=== PATIENT | female | born 1935 | race Caucasian/White ===

== ENCOUNTER 2020-06-03 14:49 | Outpatient (RCR) | payer MEDICARE, SELFPAY | END 2020-06-03 23:59 | LOC: IMMUN 14:49 | PROVIDERS: PCP Family Medicine; Visit Provider Family Medicine | DX: Z23 Encounter for immunization (principal) | CPT/HCPCS: 0011A; 0012A; 91301 ==

== ENCOUNTER 2023-12-16 14:29 | Inpatient (IN) | payer MEDICARE, BC, SELFPAY ==
[2023-12-16] VITALS (11 sets, daily range): BP systolic 137–188; BP diastolic 52–106; PULSE 42–63; RESP 15–23; TEMP 36.2–36.7; O2SAT 94–98; BMI 22.7; BMI 22.4
--- NOTE | 2023-12-16 14:36 | EKG12_ITS ---
Test Reason : Blood Pressure : / mmHG Vent. Rate : 051 BPM Atrial Rate : 000 BPM P-R Int : 000 ms QRS Dur : 136 ms QT Int : 468 ms P-R-T Axes : 000 096 -33 degrees QTc Int : 431 ms afib/flutter with slow ventricular response PVC'S Right bundle branch block NS T WAVE ABNORMALITY Abnormal ECG Confirmed by Uriel Elias ([id number]), technical editor RAPHAEL BARBER ([id number]) on 12/19/2023 8:55:27 AM Referred By: Confirmed By:Uriel Elias
--- NOTE | 2023-12-16 15:12 | EDS_ITS ---
HPI History of Present Illness Chief Complaint: Syncope [facility] Medical History Diabetes HTN (hypertension) Home Medications ?Medication ?Instructions ?Recorded ?Last Taken ?Type amlodipine 10 mg tablet 10 mg PO DAILY 12/16/23 Unknown History atorvastatin 20 mg tablet 20 mg PO DAILY 12/16/23 Unknown History hydrochlorothiazide 12.5 mg capsule 12.5 mg PO DAILY 12/16/23 Unknown History hydrochlorothiazide 25 mg tablet mg 12/16/23 Unknown History lisinopril 40 mg tablet 40 mg PO DAILY 12/16/23 Unknown History metformin 500 mg tablet,extended 500 mg PO DAILY 12/16/23 Unknown History release 24 hr metoprolol succinate 50 mg 50 mg PO DAILY 12/16/23 Unknown History tablet,extended release 24 hr omeprazole 40 mg capsule,delayed 40 mg PO DAILY 12/16/23 Unknown History release spironolactone 50 mg tablet 50 mg PO DAILY 12/16/23 Unknown History Allergy/AdvReac Type Severity Reaction Status Date / Time No Known Allergies Allergy Verified 06/03/20 09:52 Surgical History H/O lumpectomy Social History Smoking Status: Never smoker EXAM Physical Exam Const Vital Signs: 12/16/23 14:30 12/16/23 15:22 12/16/23 15:23 Temperature 97.7 F L Temperature Source Temporal Pulse Rate 51 L 53 L Respiratory Rate 15 19 H Respiratory Effort Normal Non-Labored Respiratory Pattern Normal Blood Pressure 175/86 H 173/61 H Blood Pressure Mean 115 98 Pulse Ox 97 96 Oxygen Delivery Method Room Air Room Air 12/16/23 16:00 12/16/23 17:00 12/16/23 18:00 Temperature Temperature Source Pulse Rate 55 L 48 L 42 L Respiratory Rate 17 18 17 Respiratory Effort Respiratory Pattern Blood Pressure 166/67 H 180/67 H 137/99 H Blood Pressure Mean 100 104 111 Pulse Ox 95 98 96 Oxygen Delivery Method Room Air Room Air 12/16/23 19:00 12/16/23 20:00 12/16/23 21:00 Temperature Temperature Source Pulse Rate 52 L 54 L 50 L Respiratory Rate 18 22 H 23 H Respiratory Effort Respiratory Pattern Blood Pressure 146/67 H 166/106 H 165/70 H Blood Pressure Mean 93 126 101 Pulse Ox 94 98 94 Oxygen Delivery Method Room Air Room Air Room Air [facility] [place] Medical decision making narrative: HISTORY OF PRESENT ILLNESS: 88-year-old female presents with syncopal episode today. Notes that she felt dizzy and fell off a chair. Notes injury to her right leg. Denies prodromal headache, chest pain, shortness of breath, palpitations, abdominal pain. No recent vomiting or diarrhea. No recent bleeding diathesis. Notes compliance with all of her medication. Denies taking blood thinner. GCS was greater than 14, no signs of basilar skull fracture, no palpable skull fracture, no altered mental status, no scalp hematoma noted, no loss conscious, no vomiting, no severe headache, there is no severe mechanism (ie MVC with patient ejection, of another passenger, rollover, fall from >3 feet). Advanced imaging of the brain is not indicated at this time. REVIEW OF SYSTEMS: Pertinent positives: Syncope, right ankle pain Pertinent negatives: Chest pain PHYSICAL EXAM: Nursing triage notes reviewed, Vital signs reviewed Constitutional: please see [facility] HENT: MMM Eyes: Pupils equal round and reactive to light, Extraocular muscles intact Neck: No stridor, no JVD, full neck ROM Lungs: Clear to auscultation, No wheezing or rales. No increased work of breathing, no conversational dyspnea, no accessory muscle use, no nasal flaring. No respiratory distress noted Heart: Regular rate and rhythm, No murmurs, No rubs and No gallops, 2+ distal pulses (radial, femoral, posterior tibial) in all extremities Abdomen: Soft, there is no tenderness, rigidity, rebound or guarding, no obvious peritoneal signs, no palpable pulsatile abdominal masses, no auscultated abdominal bruit : No CVAT Extremities: No edema, no leg swelling, no unilateral leg swelling or calf tenderness Neuro: No focal neurological deficits, cranial nerves II through XII intact, 5/5 strength in all extremities. Intact sensation to light touch in all extremities, 2+ reflexes bilateral patella tendons. Normal gait. No ataxia. Skin: No rash or lesions noted MEDICAL DECISION MAKING: Chief Complaint: Syncope, right ankle pain External records reviewed: [facility] reviewed: No recent advanced imaging of the brain noted Factors affecting care: Hypertension, a flutter, hyperlipidemia, type 2 diabetes, GERD Social determinants of health: Elderly History obtained from others: Family Consults: Cardiology, internal medicine MDM Narrative: Patient was initially hypertensive with a blood pressure 175/86, bradycardic with pulse 51. Otherwise afebrile and nontoxic-appearing I considered the following differential diagnosis: Arrhythmia, acute ischemia, anemia, electrolyte disturbance, ICH, fracture dislocation of the right ankle. I considered pulm embolism as a plan to etiology patient syncope, she had no chest pain, shortness of breath, no signs of right heart strain, low risk well score. Low suspicion for PE at this time. ALL IMAGES (IF OBTAINED) HAVE BEEN PERSONALLY REVIEWED AND INTERPRETED BY MYSELF. EKG with sinus bradycardia, normal axis, frequent PVCs, noted artifactual changes or change related to a flutter in V1 only Chest x-ray was read impression reviewed myself shows cardiomegaly and pulmonary vascular congestion. Radiologist was concerned about fullness in the hilum. Will obtain a CT of the chest. X-ray of the patient's left tib-fib fib/left ankle shows no evidence of obvious bony abnormality by my read. Radiologist agrees my interpretation CT of the chest shows right pleural effusion CT scan of brain was obtained rule out intracranial injury from fall. CT scan of brain was negative for acute intracranial injury. High-sensitivity troponin is negative, no evidence of myocardial ischemia x 2 On reassessment patient blood pressure 165/70. Heart rate remains in the 50s. She remains asymptomatic in terms of chest pain or shortness of breath Given signs of pulmonary branch congestion by my read on x-ray, elevated BNP, concerns for arrhythmia in the setting of syncope thought the patient deserves an observation period. Discussed with cardiology (Dr. Sharma) who agreed with admission. Discussed with hospitalist Dr. Carrillo who accepted the patient's case. Recommended PCU. The patient and/or family, caregivers express understanding. The patient and/or family, caregivers agrees with the plan. Shared decision making: I will have a discussion with the patient and or visitors regarding risk/benefits of further testing or admission. They will be made aware of of t he risk/benefits inherent in this decision they will be given the opportunity to voice understanding. Total critical care time today provided was at least 0 minutes. This excludes separately billable procedures. Critical care time (if documented) is secondary to the patient having high probability of clinically significant/life threatening deterioration in the patient's condition which required my urgent intervention. Impression: 1. Syncope 2. CHF 3. History of T2DM Dispo: discharge home This note was generated with [employer] dictation software. It may contain incorrect words, spelling, and punctuation that were not noted in review of the chart prior to signing. Lab Data Labs: Laboratory Results - last 24 hr 12/16/23 12/16/23 12/16/23 17:16 17:19 19:28 WBC 14.1 H RBC 4.13 L Hgb 12.7 Hct 39.1 MCV 94.7 MCH 30.8 MCHC 32.5 RDW Std Deviation 46.6 H RDW Coeff of Renita 13.4 Plt Count 167 MPV 9.9 Immature Gran % (Auto) 0.400 Neut % (Auto) 74.7 H Lymph % (Auto) 15.4 L [place] % (Auto) 8.6 Eos % (Auto) 0.6 Baso % (Auto) 0.3 Absolute Neuts (auto) 10.5 H Absolute Lymphs (auto) 2.18 Nucleated RBC % 0 D-Dimer Quant (PE/DVT) 3.35 H* Sodium 141 Potassium 4.4 Chloride 107 Carbon Dioxide 29.0 Anion Gap 5 BUN 26 H Creatinine 0.97 Estim Creat Clear Calc 34.44 Est GFR (MDRD) Af Amer 70 Est GFR (MDRD) Non-Af 58 L BUN/Creatinine Ratio 26.8 H Glucose 275 H Calcium 9.3 Troponin I High Sens 12 12 B-Natriuretic Peptide 527.9 H Radiography Diagnostic Testing: Clinical Impression(s) from Imaging Studies Ankle X-Ray 12/16/23 16:39 IMPRESSION: Negative left ankle x-rays. Electronically Signed: Wolfgang Goldman MD at 18:10 EDT , Brain CT 12/16/23 16:39 IMPRESSION: No acute findings in the head/brain. Electronically Signed: Wolfgang Goldman MD at 17:59 EDT , Tibia/Fibula X-Ray 12/16/23 16:39 IMPRESSION: Negative left tibia and fibula x-rays. Electronically Signed: Wolfgang Goldman MD at 18:14 EDT Reading Location ID and State: [facility] / [place] Tel , Service support , Chest X-Ray 12/16/23 17:05 IMPRESSION: Fullness in the right hilum which may represent a mass or pulmonary vasculature. Further evaluation with CT scan may be beneficial. Electronically Signed: Wolfgang Goldman MD at 18:14 EDT Reading Location ID and State: [facility] / [place] Tel , Service support , Chest CT 12/16/23 19:30 IMPRESSION: 1. Moderate right-sided pleural effusion. There is no focal consolidation. 2. Mild prominence of the right pulmonary artery. There is no hilar mass identified. Electronically Signed: oWlfgang Goldman MD at 20:58 EDT , Discharge Plan Disposition Disposition: Acute Care Hospital [facility] Discharge Date/Time: 12/16/23 22:18
--- NOTE | 2023-12-16 16:39 | RAD_ITS ---
EXAM: XR LEFT ANKLE COMPLETE, 3 OR MORE VIEWS CLINICAL INDICATION: pain TECHNIQUE: Frontal, lateral and oblique views of the left ankle. COMPARISON: No relevant prior studies available. FINDINGS: BONES/JOINTS: Unremarkable. No acute fracture. No subluxation. Normal alignment. Preservation of the joint space. No sclerotic or destructive changes observed. SOFT TISSUES: Unremarkable. No soft tissue swelling or gas. No radiopaque foreign body. RAD/Ankle min 3 Views IMPRESSION: Negative left ankle x-rays. Electronically Signed: Wolfgang Goldman MD at 18:10 EDT ,
--- NOTE | 2023-12-16 16:39 | RAD_ITS ---
EXAM: XR LEFT TIBIA AND FIBULA, 2 VIEWS CLINICAL INDICATION: left leg pain TECHNIQUE: Frontal and lateral views of the left tibia and fibula. COMPARISON: No relevant prior studies available. FINDINGS: BONES/JOINTS: Unremarkable. No acute fracture. No subluxation. Normal alignment. Preservation of the joint space. No sclerotic or destructive changes observed. SOFT TISSUES: Unremarkable. No soft tissue swelling or gas. No radiopaque foreign body. RAD/Tibia & Fibula 2 Views IMPRESSION: Negative left tibia and fibula x-rays. Electronically Signed: Wolfgang Goldman MD at 18:14 EDT ,
--- NOTE | 2023-12-16 16:39 | CT_ITS ---
EXAM: CT HEAD WITHOUT INTRAVENOUS CONTRAST CLINICAL INDICATION: heada trauma TECHNIQUE: Multiple axial images were obtained of the head without intravenous contrast. This CT exam was performed using one or more of the following dose reduction techniques: automated exposure control, adjustment of the mA and/or kV according to patient size, and/or use of iterative reconstruction technique. COMPARISON: No relevant prior studies available. FINDINGS: BRAIN AND EXTRA-AXIAL SPACES: There is hypoattenuation in the periventricular white matter. No intra- or extra-axial hemorrhage. No evidence of acute infarct. No intracranial mass or mass effect. There is preservation of the elena/white matter interface. Posterior fossa structures are unremarkable. No hydrocephalus. Basal cisterns are patent. BONES/JOINTS: Unremarkable. No discrete lytic or blastic abnormalities. SINUSES: Unremarkable as visualized. Clear. MASTOID AIR CELLS: Unremarkable. Clear. ORBITS: Visualized globes, extraocular muscles, optic nerves and retrobulbar fat appear unremarkable. CT/Brain/Head without Contrast IMPRESSION: No acute findings in the head/brain. Electronically Signed: Wolfgang Goldman MD at 17:59 EDT ,
--- NOTE | 2023-12-16 17:05 | RAD_ITS ---
EXAM: XR CHEST, 1 VIEW CLINICAL INDICATION: syncope TECHNIQUE: Frontal view of the chest. COMPARISON: No relevant prior studies available. FINDINGS: LUNGS AND PLEURAL SPACES: There is fullness in the right hilum. No pneumothorax. No effusion. HEART: Unremarkable. Cardiac silhouette not enlarged. MEDIASTINUM: Central airways and mediastinal contour are unremarkable. BONES/JOINTS: Unremarkable. No acute fracture. SOFT TISSUES: Unremarkable. RAD/Chest 1 View (Portable) IMPRESSION: Fullness in the right hilum which may represent a mass or pulmonary vasculature. Further evaluation with CT scan may be beneficial. Electronically Signed: Wolfgang Goldman MD at 18:14 EDT ,
[2023-12-16 17:26] LABS: Absolute Lymphocyte Count 2.18 X10^3/uL (0.83-4.51); Absolute Neutrophil Count 10.5 X10^3/uL (2.0-7.7); Basophil# 0.04 X10^3/uL; Basophil% 0.3 % (0-1); Eosinophil# 0.09 X10^3/uL; Eosinophils% 0.6 % (0-5); Hematocrit 39.1 % (37-47); Hemoglobin 12.7 g/dL (12.0-15.0); Lymphocyte # 2.18 X10^3/ul (0.83-4.51); Lymphocyte % 15.4 % (19-41); Mean Corp Hgb Conc 32.5 g/dL (32-36); Mean Corpuscular Hgb 30.8 pg (27.0-32.0); Mean Corpuscular Volume 94.7 fL (81-99); Mean Platelet Vol. 9.9 fl (6.2-12.0); Monocyte# 1.21 X10^3/uL; Monocyte% 8.6 % (0-10); NRBC Flagged by Analyzer 0 % (0-5); Neutrophil # 10.54 X10^3/uL (2.7-7.7); Neutrophil % 74.7 % (47-70); Platelet Count 167 K/mm3 (150-450); RBC Distribution Width CV 13.4 % (11.6-14.6); RBC Distribution Width SD 46.6 fl (35.1-43.9); Red Blood Count 4.13 M/mm3 (4.2-5.4); White Blood Count 14.1 K/mm3 (4.4-11.0)
[2023-12-16] MEDS: 0.9% Normal Saline (500mL Bag) 500 ML 1000 ML IV (17:41)
[2023-12-16] MEDS: Acetaminophen 500 MG Tablet PO (17:42)
[2023-12-16 17:44] LABS: Anion Gap 5 (5-15); BUN 26 mg/dL (7-18); BUN/Creat Ratio 26.8 RATIO (10-20); Calcium,Total 9.3 mg/dL (8.5-10.1); Chloride 107 mmol/L (98-107); Creatinine, Serum 0.97 mg/dL (0.55-1.02); EST Glomerular Filtration Rate 58 mL/min (>60); Est Glom Filt Rate - Afr Amer 70 mL/min (>60); Estimated Creatinine Clearance 34.44 ml/min; Glucose 275 mg/dL (74-106); Potassium 4.4 mmol/L (3.5-5.1); Sodium Level 141 mmol/L (136-145); Troponin-I HS (w/2H Reflex) 12 pg/mL (3.0-54.0)
[2023-12-16 17:52] LABS: BNP,B-Type NATRIURETIC PEPTIDE 527.9 pg/mL (0-100)
[2023-12-16 19:22] LABS: Reflex Troponin-HS? (from REC) Y
--- NOTE | 2023-12-16 19:29 | EKG12_ITS ---
Test Reason : DYSRHYTHMIA Blood Pressure : / mmHG Vent. Rate : 071 BPM Atrial Rate : 071 BPM P-R Int : 000 ms QRS Dur : 134 ms QT Int : 452 ms P-R-T Axes : -45 105 -62 degrees QTc Int : 491 ms Atrial flutter with variable A-V block with premature ventricular or aberrantly conducted complexes Right bundle branch block Cannot rule out Inferior infarct , age undetermined Abnormal ECG Confirmed by Uriel Elias ([id number]), editor dictionary REBECA CHAN ([id number]) on 12/18/2023 2:08:09 PM Referred By: JAQUELIN Confirmed By:Uriel Elias
--- NOTE | 2023-12-16 19:30 | CT_ITS ---
EXAM: CT CHEST WITHOUT INTRAVENOUS CONTRAST CLINICAL INDICATION: hilar mass? TECHNIQUE: Helically acquired images were obtained of the chest without intravenous contrast. This CT exam was performed using one or more of the following dose reduction techniques: automated exposure control, adjustment of the mA and/or kV according to patient size, and/or use of iterative reconstruction technique. COMPARISON: No relevant prior studies available. FINDINGS: LUNGS AND PLEURAL SPACES: There is prominence of the right pulmonary vein. No mass is identified in the hilum. There is a small to moderate right-sided pleural effusion. No pneumothorax. HEART: Unremarkable. Heart size is normal. No pericardial effusion. No significant coronary artery calcifications. MEDIASTINUM: See below. THYROID: Unremarkable. No thyroid lesions. BONES/JOINTS: Vertebrae in the esophagus. No suspicious lytic or blastic abnormality. VASCULATURE: See above. OTHER FINDINGS: 2.7 x 2.2 cm low-density mass in the right lobe are gland which may represent trace cyst. CT/Chest without Contrast IMPRESSION: 1. Moderate right-sided pleural effusion. There is no focal consolidation. 2. Mild prominence of the right pulmonary artery. There is no hilar mass identified. Electronically Signed: Wolfgang Goldman MD at 20:58 EDT ,
[2023-12-16 20:04] LABS: Troponin-I HS 12 pg/mL (3.0-54.0)
--- NOTE | 2023-12-16 21:57 | PCM.HP.STD ---
[facility] - General General Date of Service: 12/16/23 Chief Complaint: Syncope HPI Narrative AUSTIN FANG, is a 88 F who presents with syncope. Is an 88-year-old female with hypertension who was with her daughter and was not feeling well. Sat down and they checked her blood pressure as he normally do and systolic is in the 190s, checked a few moments later and it was down into the 90s. Daughter left the room and then heard a thud with Dr. Ibarra the room the patient had fallen to the ground. Patient came to immediately. Patient had injured her ankle. With this syncopal event, they brought her to the hospital. Patient's not had syncopal events but she has been having some dizziness as of late. She denies any chest pain, no shortness of breath, she does have some ankle edema which is new. She in the emergency room was found to be in rate controlled a flutter, which is new, she had a chest x-ray that was concerning for hilar mass so she underwent a CT without contrast that showed right pleural effusion. ED reached out to cardiology who advised admission. [facility] Medical History Diabetes HTN (hypertension) Home Medications ?Medication ?Instructions ?Recorded ?Last Taken ?Type amlodipine 10 mg tablet 10 mg PO DAILY 12/16/23 Unknown History atorvastatin 20 mg tablet 20 mg PO DAILY 12/16/23 Unknown History hydrochlorothiazide 12.5 mg capsule 12.5 mg PO DAILY 12/16/23 Unknown History hydrochlorothiazide 25 mg tablet mg 12/16/23 Unknown History lisinopril 40 mg tablet 40 mg PO DAILY 12/16/23 Unknown History metformin 500 mg tablet,extended 500 mg PO DAILY 12/16/23 Unknown History release 24 hr metoprolol succinate 50 mg 50 mg PO DAILY 12/16/23 Unknown History tablet,extended release 24 hr omeprazole 40 mg capsule,delayed 40 mg PO DAILY 12/16/23 Unknown History release spironolactone 50 mg tablet 50 mg PO DAILY 12/16/23 Unknown History Allergy/AdvReac Type Severity Reaction Status Date / Time No Known Allergies Allergy Verified 06/03/20 09:52 Surgical History H/O lumpectomy Social History Smoking Status: Never smoker ROS ROS Narrative All review of systems were negative except as mentioned above in the history of present illness and the other review of systems. Vital Signs Vital Signs Vital Signs: 12/16/23 14:30 12/16/23 15:22 12/16/23 15:23 Temperature 36.5 C L Temperature Source Temporal Pulse Rate 51 L 53 L Respiratory Rate 15 19 H Respiratory Effort Normal Non-Labored Respiratory Pattern Normal Blood Pressure 175/86 H 173/61 H Blood Pressure Mean 115 98 Pulse Ox 97 96 Oxygen Delivery Method Room Air Room Air 12/16/23 16:00 12/16/23 17:00 12/16/23 18:00 Temperature Temperature Source Pulse Rate 55 L 48 L 42 L Respiratory Rate 17 18 17 Respiratory Effort Respiratory Pattern Blood Pressure 166/67 H 180/67 H 137/99 H Blood Pressure Mean 100 104 111 Pulse Ox 95 98 96 Oxygen Delivery Method Room Air Room Air 12/16/23 19:00 12/16/23 20:00 12/16/23 21:00 Temperature Temperature Source Pulse Rate 52 L 54 L 50 L Respiratory Rate 18 22 H 23 H Respiratory Effort Respiratory Pattern Blood Pressure 146/67 H 166/106 H 165/70 H Blood Pressure Mean 93 126 101 Pulse Ox 94 98 94 Oxygen Delivery Method Room Air Room Air Room Air 12/16/23 21:42 Temperature 36.7 C Temperature Source Pulse Rate 50 L Respiratory Rate 18 Respiratory Effort Respiratory Pattern Blood Pressure 165/70 H Blood Pressure Mean 101 Pulse Ox 96 Oxygen Delivery Method Weight Weight: 58.3 kg Body Mass Index (BMI) 22.7 Physical Exam Const alert and no apparent distress Constitutional Narrative: Appears younger than stated age. No respiratory distress. No conversational dyspnea. On room air. General Appearance: cooperative HEENT normocephalic and head/scalp atraumatic Eyes Eyes Narrative: No icterus. Neck no lymphadenopathy Neck Narrative: Positive JVD. Resp normal respiratory effort and no retractions Resp Narrative: Left lower lobe crackles. Dullness percussion at the right base. Cardio regular rate, regular rhythm, S1 normal heart sound and S2 normal heart sound GI normal to inspection, nondistended, normoactive bowel sounds, soft to palpation, non-tender, non-distended and hepatosplenomegaly Extremity Extremity Narrative: Trace lower extremity edema Skin Skin Narrative: Abrasions on left ankle and arroyo. Neuro moves all extremities Sensorium / Orientation: awake and alert Speech: speech normal Psych affect normal Results Lab / Micro Data Attestation: I reviewed the patient's lab results. 12/16/23 17:19 12/16/23 17:19 Labs: Laboratory Results - last 24 hr 12/16/23 17:19: WBC 14.1 H, RBC 4.13 L, Hgb 12.7, Hct 39.1, MCV 94.7, MCH 30.8, MCHC 32.5, RDW Std Deviation 46.6 H, RDW Coeff of Renita 13.4, Plt Count 167, MPV 9.9, Immature Gran % (Auto) 0.400, Neut % (Auto) 74.7 H, Lymph % (Auto) 15.4 L, [place] % (Auto) 8.6, Eos % (Auto) 0.6, Baso % (Auto) 0.3, Absolute Neuts (auto) 10.5 H, Absolute Lymphs (auto) 2.18, Nucleated RBC % 0, Sodium 141, Potassium 4.4, Chloride 107, Carbon Dioxide 29.0, Anion Gap 5, BUN 26 H, Creatinine 0.97, Estim Creat Clear Calc 34.44, Est GFR (MDRD) Af Amer 70, Est GFR (MDRD) Non-Af 58 L, BUN/Creatinine Ratio 26.8 H, Glucose 275 H, Calcium 9.3, Troponin I High Sens 12, B-Natriuretic Peptide 527.9 H 12/16/23 19:28: Troponin I High Sens 12 EKG Initial EKG: Attestation: I personally reviewed and interpreted this EKG as follows: Prior EKG tracings: available for review EKG Rhythm Intrepretation: Atrial Flutter (Rate controlled) Imaging Radiology Impression Ankle X-Ray 12/16/23 16:39 IMPRESSION: Negative left ankle x-rays. Electronically Signed: Wolfgang Goldman MD at 18:10 EDT , Brain CT 12/16/23 16:39 IMPRESSION: No acute findings in the head/brain. Electronically Signed: Wolfgang Goldman MD at 17:59 EDT , Tibia/Fibula X-Ray 12/16/23 16:39 IMPRESSION: Negative left tibia and fibula x-rays. Electronically Signed: Wolfgang Goldman MD at 18:14 EDT , Chest X-Ray 12/16/23 17:05 IMPRESSION: Fullness in the right hilum which may represent a mass or pulmonary vasculature. Further evaluation with CT scan may be beneficial. Electronically Signed: Wolfgang Goldman MD at 18:14 EDT , Chest CT 12/16/23 19:30 IMPRESSION: 1. Moderate right-sided pleural effusion. There is no focal consolidation. 2. Mild prominence of the right pulmonary artery. There is no hilar mass identified. Electronically Signed: Wolfgang Goldman MD at 20:58 EDT , Assessment & Plan Assessment/Plan (1) Syncope: PLAN: Unclear etiology. Patient was actually sitting but while she was sitting her blood pressure dropped from 190s to 90s. Family states that her blood pressure has been very labile as of late. Patient did not feel well but did not have any kind of prodrome before her actual syncopal event which is concerning for potential arrhythmia. I am concerned the patient may have some form of cardiomyopathy given the fact that she does have JVD, a right-sided pleural effusion (though she is asymptomatic) Plan: Patient be monitored on telemetry. Check echo. Cycle troponins. Cardiology consult. (2) Pleural effusion: PLAN: Suspect transudative will give the patient a dose of furosemide (hold her HCTZ for now) continue for spironolactone. (3) Atrial flutter: PLAN: New diagnosis but may not be a new process. Rate controlled. [id number] of 6 Continue with her metoprolol succinate. Start anticoagulation for now with enoxaparin until we get echocardiogram results. PLAN: Plan Chronic conditions Hypertension: Blood pressure has been labile at home. Will monitor her blood pressure as well as institute to hold parameters for antihypertensives with amlodipine and lisinopril. Diabetes mellitus type 2: Continue with metformin. Check an A1c. Add sliding scale insulin. VTE prophylaxis: Low risk as patient is already going to be anticoagulated. CODE STATUS: Addressed with the patient. Patient wishes to be full code. Case discussed with the patient's family at bedside. Charges/Coding Visit Charges Inpatient E&M: 49128 Init Hosp L3
[2023-12-16 22:12] LABS: D-Dimer Quantitative (DVT/PE) 3.35 FEU/ug/m (0.27-0.49)
--- NOTE | 2023-12-16 22:26 | ECHOD_ITS ---
Reason For Study: SYNCOPE Procedure This was a 2D Doppler, Color Flow transthoracic echocardiogram. Exam performed portable in patient room. Left Ventricle Normal LV size. Left ventricular systolic function is normal. The left ventricular ejection fraction is 65 %. No regional wall motion abnormalities noted. Right Ventricle Normal RV size. Moderate global right ventricular systolic dysfunction. Atria Normal left atrium. Normal right atrium. Mitral Valve Normal mitral valve. Tricuspid Valve Normal tricuspid valve. Moderately severe (3+) tricuspid valve insufficiency. Pulmonary artery systolic pressure is 88 mmHg. Severe pulmonary hypertension. Aortic Valve Trisinus/trileaflet aortic valve. Pulmonic Valve Normal pulmonic valve. Great Vessels Normal aortic root. The pulmonary artery is normal size. Inferior vena cava collapse with respiration. Pericardium/Pleural No pericardial effusion. MMode/2D Measurements & Calculations LVIDd: 3.9 cm IVSd: 1.1 cm LAV(MOD-bp): 40.0 ml LVIDs: 2.2 cm LVPWd: 0.95 cm LAV(MOD-bp) Indexed: 25.0 ml/m2 RVDd: 4.2 cm FS: 44.2 % LAV(MOD-sp2): 27.5 ml LAV(MOD-sp4): 47.0 ml SV(MOD-sp4): 40.1 ml SV(sp4-el): 41.3 ml LVAd ap4: 20.5 cm2 LVLd ap4: 6.7 cm EDV(MOD-sp4): 51.6 ml EDV(sp4-el): 53.0 ml LVAs ap4: 8.4 cm2 LVLs ap4: 5.1 cm ESV(MOD-sp4): 11.5 ml ESV(sp4-el): 11.7 ml EF(MOD-sp4): 77.7 % EF(sp4-el): 77.9 % LA A4 area: 18.2 cm2 LA dimension(2D): 4.0 cm RA A4 area: 19.7 cm2 Doppler Measurements & Calculations MV E max kiya: 133.0 cm/sec Ao V2 max: 145.9 cm/sec LV V1 max: 103.3 cm/sec Ao max P.6 mmHg LV V1 max P.3 mmHg Ao V2 mean: 92.6 cm/sec LV V1 mean P.2 mmHg Ao mean P.1 mmHg LV V1 mean: 69.5 cm/sec Ao V2 VTI: 30.7 cm LV V1 VTI: 23.0 cm AV (velocity ratio): 0.75 PA V2 max: 133.8 cm/sec TR max kiya: 446.3 cm/sec PA V2 mean: 91.1 cm/sec TR max P.7 mmHg ECHO/Echo Complete Interpretation Summary Normal LV size. Left ventricular systolic function is normal. The left ventricular ejection fraction is 65 %. Moderate global right ventricular systolic dysfunction. Pulmonary artery systolic pressure is 88 mmHg. Severe pulmonary hypertension. Ordering Physician: Kody Carrillo Referring Physician: Juany Rao M.D. Performed By: Marci Mccoy RCS
--- NOTE | 2023-12-16 22:30 | CT_ITS ---
EXAM: CT ANGIOGRAPHY CHEST WITHOUT AND WITH INTRAVENOUS CONTRAST CLINICAL INDICATION: pleural effusion. Syncope TECHNIQUE: Helically acquired angiography images were obtained of the chest without and with intravenous contrast. This CT exam was performed using one or more of the following dose reduction techniques: automated exposure control, adjustment of the mA and/or kV according to patient size, and/or use of iterative reconstruction technique. MIP reconstructed images were created and reviewed. CONTRAST: IV 75mL [id number] COMPARISON: No relevant prior studies available. FINDINGS: PULMONARY ARTERIES: Unremarkable. Normal in caliber. No evidence of pulmonary embolism. AORTA: Unremarkable. Normal in caliber. No evidence of dissection. GREAT VESSELS OF AORTIC ARCH: Unremarkable. Normal in caliber. No evidence of dissection. INFERIOR VENA CAVA: There is reflux of contrast into the inferior vena cava and hepatic veins which may indicate deep cardiac output. LUNGS AND PLEURAL SPACES: There is a small to moderate right-sided pleural effusion. No mass. No pneumothorax. HEART: See above. MEDIASTINUM: Unremarkable. No mediastinal or hilar adenopathy. Esophagus is unremarkable. No hiatal hernia. THYROID: There is a low-density mass in the right lobe thyroid gland which may represent a cyst. BONES/JOINTS: Unremarkable. No suspicious lytic or blastic abnormality. CT/CTA Chest W/WO Contrast IMPRESSION: 1. No evidence of pulmonary embolus. 2. Small to moderate right-sided pleural effusion. 3. There is reflux of contrast into the inferior vena cava and hepatic veins which may indicate decreased cardiac output. Electronically Signed: Wolfgang Goldman MD at 23:57 EDT ,
[2023-12-16] MEDS: Furosemide 40 MG/4 ML Vial IV (23:34)
[2023-12-16] MEDS: Enoxaparin 60 MG/0.6 ML Syringe SC (23:35)
[2023-12-16] MEDS: Acetaminophen 325 MG Tablet 650 MG PO (23:38)
[2023-12-16] MEDS: 0.9% Saline Lock 10 ML Syringe IV (23:39)
[2023-12-17] VITALS (14 sets, daily range): BP systolic 110–186; BP diastolic 29–119; PULSE 34–57; RESP 14–32; TEMP 36.6–37.6; O2SAT 87–99
[2023-12-17 00:15] LABS: Troponin-I HS 27 pg/mL (3.0-54.0)
[2023-12-17] MEDS: Enoxaparin 60 MG/0.6 ML Syringe SC (06:11)
[2023-12-17 06:29] LABS: Absolute Lymphocyte Count 2.08 X10^3/uL (0.83-4.51); Absolute Neutrophil Count 8.8 X10^3/uL (2.0-7.7); Basophil# 0.02 X10^3/uL; Basophil% 0.2 % (0-1); Eosinophil# 0.11 X10^3/uL; Eosinophils% 0.9 % (0-5); Hematocrit 34.8 % (37-47); Hemoglobin 11.7 g/dL (12.0-15.0); Lymphocyte # 2.08 X10^3/ul (0.83-4.51); Mean Corp Hgb Conc 33.6 g/dL (32-36); Mean Corpuscular Hgb 31.7 pg (27.0-32.0); Mean Corpuscular Volume 94.3 fL (81-99); Mean Platelet Vol. 9.8 fl (6.2-12.0); Monocyte% 9.8 % (0-10); NRBC Flagged by Analyzer 0 % (0-5); Neutrophil # 8.77 X10^3/uL (2.7-7.7); Neutrophil % 71.8 % (47-70); Platelet Count 154 K/mm3 (150-450); RBC Distribution Width CV 13.4 % (11.6-14.6); RBC Distribution Width SD 45.7 fl (35.1-43.9); Red Blood Count 3.69 M/mm3 (4.2-5.4); White Blood Count 12.2 K/mm3 (4.4-11.0)
[2023-12-17 06:57] LABS: Anion Gap 6 (5-15); BUN 20 mg/dL (7-18); BUN/Creat Ratio 20.2 RATIO (10-20); Calcium,Total 9.2 mg/dL (8.5-10.1); Chloride 104 mmol/L (98-107); Creatinine, Serum 0.99 mg/dL (0.55-1.02); EST Glomerular Filtration Rate 57 mL/min (>60); Est Glom Filt Rate - Afr Amer 68 mL/min (>60); Estimated Creatinine Clearance 33.74 ml/min; Glucose 232 mg/dL (74-106); Potassium 4.2 mmol/L (3.5-5.1); Sodium Level 139 mmol/L (136-145)
[2023-12-17] MEDS: Insulin Lispro 100 UNIT/ML INSULN.PEN SC ×3 (06:58→16:09)
[2023-12-17 07:14] LABS: Bedside Glucose 230 mg/dL (74-106)
--- NOTE | 2023-12-17 08:41 | CON.PCM.CA_ITS ---
Assessment & Plan Assessment/Plan (1) Atrial flutter: QUALIFIERS: Atrial flutter type: atypical Qualified Code(s): I 48.4 - Atypical atrial flutter PLAN: Patient comes in with newly diagnosed atrial fibrillation/flutter. She had a eli syncopal episode and heart rates have been in the 40 to 50 bpm range since admission. She has been on metoprolol in the past 50 mg daily she had a eli syncopal episode witnessed by her family yesterday. Currently the patient is receiving Lovenox 60 mg twice daily. (2) Syncope: QUALIFIERS: Syncope type: unspecified Qualified Code(s): R55 - Syncope and collapse PLAN: The patient's syncope appears to be related to her bradycardia. She will require treatment with rate modulating drugs and therefore will require permanent pacemaker implantation for control of her rhythm. Lovenox will be held and we will proceed with permanent pacemaker implantation in the next 12 hours. PLAN: Plan 1. Will proceed with permanent pacemaker implantation once Lovenox has been held for an appropriate period of time. 2. Will proceed with medical therapy for blood pressure as tolerated once pacemaker is implanted. HPI Consult Data Date of Consult: 12/17/23 HPI Narrative Reason for Consultation: Syncope HPI Narrative: AUSTIN AFNG, is a 88 F who presents with a syncopal spell in her home environment. Her daughter was checking her blood pressure which usually runs in the 190 systolic range and has been labile and difficult to control. She checked it it was 90 systolic and she subsequently passed out falling to the floor. She did hurt her left ankle x-rays of the ankle tibia and fibula were negative. The patient denies any previous history of syncope. She has had some dizzy spells. She was newly documented in atrial fibs/flutter in the emergency department. Heart rates have been in the 40 to 50 bpm range on telemetry the patient has been at bedrest. The patient has been on long-term metoprolol 50 mg daily and recently had her spironolactone increase in 25 to 50 mg daily for antihypertensive effect. The metoprolol is being held. An echocardiogram is pending at this time. Her BNP on presentation was 528 but she was in atrial fibs flutter at the time. Patient has no previous history of LV dysfunction. She does report to me that she has had a remote history of an irregular heartbeat but she does not know the name of that and was never told about it by her physician by her report. She remembers being told by someone that she had an irregular heart rhythm. Patient denies any history of previous cath she has never had an infarct to her knowledge. Her main issue has been the difficult to control labile blood pressures. EKG on presentation showed a heart rate of 51 with occasional PVCs and underlying atrial fibs flutter. Currently the patient is denying any shortness of breath or lightheadedness. She denies any chest symptoms. [facility] Medical History Diabetes HTN (hypertension) Home Medications ?Medication ?Instructions ?Recorded ?Last Taken ?Type amlodipine 10 mg tablet 10 mg PO DAILY 12/16/23 Unknown History atorvastatin 20 mg tablet 20 mg PO DAILY 12/16/23 Unknown History hydrochlorothiazide 12.5 mg capsule 12.5 mg PO DAILY 12/16/23 Unknown History hydrochlorothiazide 25 mg tablet mg 12/16/23 Unknown History lisinopril 40 mg tablet 40 mg PO DAILY 12/16/23 Unknown History metformin 500 mg tablet,extended 500 mg PO DAILY 12/16/23 Unknown History release 24 hr metoprolol succinate 50 mg 50 mg PO DAILY 12/16/23 Unknown History tablet,extended release 24 hr omeprazole 40 mg capsule,delayed 40 mg PO DAILY 12/16/23 Unknown History release spironolactone 50 mg tablet 50 mg PO DAILY 12/16/23 Unknown History Allergy/AdvReac Type Severity Reaction Status Date / Time No Known Allergies Allergy Verified 06/03/20 09:52 Surgical History H/O lumpectomy Social History Smoking Status: Never smoker ROS Constitutional Constitutional: Reports as per HPI Eyes Eyes: Reports systems reviewed and no addt'l complaints, except as documented ENT HEENT: Reports systems reviewed and no addt'l complaints, except as documented Cardiovascular Cardiovascular: Reports as per HPI Respiratory/Chest Respiratory/Chest: Reports as per HPI Gastrointestinal Gastrointestinal: Reports as per HPI Genitourinary Genitourinary: Reports systems reviewed and no addt'l complaints, except as documented Musculoskeletal Musculoskeletal: Reports as per HPI Integumentary Integumentary: Reports as per HPI Neurologic Neurologic: Reports as per HPI Psychiatric Psychiatric: Reports systems reviewed and no addt'l complaints, except as documented Endocrine Endocrinology: Reports systems reviewed and no addt'l complaints, except as documented Hematologic/Lymphatic Hematologic/Lymphatic: Reports systems reviewed and no addt'l complaints, except as documented Allergic/Immunologic Allergic/Immunologic: Reports systems reviewed and no addt'l complaints, except as documented Physical Exam Const alert and oriented x3 HEENT normocephalic Eyes conjunctivae normal Neck no JVD and no carotid bruits Chest inspection of chest normal Resp normal respiratory effort Auscultation: crackles bilateral lower Cardio Rate: bradycardia Rhythm: regular rhythm Heart Sounds: S1 normal and S2 normal; Negative for click, gallop, murmur or rub GI soft to palpation Extremity no pedal edema Skin Skin Narrative: Small ecchymotic area on the left [place]o. Neuro Neuro Narrative: Alert and oriented x 3 Psych mental status grossly normal Risk Stratification Risk Stratification Applicable: No Charges/Coding Visit Charges Inpatient E&M: 64450 Init Hosp L3 Objective Data Vital Signs: Vital Signs Temp Pulse Resp BP Pulse Ox O2 Del Method 97.9 F 50 L 16 146/42 H 96 Room Air 12/17/23 03:39 12/17/23 03:39 12/17/23 03:39 12/17/23 03:39 12/17/23 03:39 12/17/23 03:39 Oxygen Delivery Method Room Air Weight: 126 lb 12.8 oz Body Mass Index (BMI) 22.4 Intake & Output: Intake and Output for Last 24 Hours 12/15/23 12/16/23 12/17/23 23:59 23:59 23:59 Intake Total 500 / 500 Output Total 300 / 300 Balance 500 / 200 -300 / -300 Lab / Micro Data Attestation: I reviewed the patient's lab results. 12/17/23 06:00 12/17/23 06:00 Labs: Laboratory Results - last 24 hr 12/16/23 17:16: D-Dimer Quant (PE/DVT) 3.35 H* 12/16/23 17:19: WBC 14.1 H, RBC 4.13 L, Hgb 12.7, Hct 39.1, MCV 94.7, MCH 30.8, MCHC 32.5, RDW Std Deviation 46.6 H, RDW Coeff of Renita 13.4, Plt Count 167, MPV 9.9, Immature Gran % (Auto) 0.400, Neut % (Auto) 74.7 H, Lymph % (Auto) 15.4 L, [place] % (Auto) 8.6, Eos % (Auto) 0.6, Baso % (Auto) 0.3, Absolute Neuts (auto) 10.5 H, Absolute Lymphs (auto) 2.18, Nucleated RBC % 0, Sodium 141, Potassium 4.4, Chloride 107, Carbon Dioxide 29.0, Anion Gap 5, BUN 26 H, Creatinine 0.97, Estim Creat Clear Calc 34.44, Est GFR (MDRD) Af Amer 70, Est GFR (MDRD) Non-Af 58 L, BUN/Creatinine Ratio 26.8 H, Glucose 275 H, Calcium 9.3, Troponin I High Sens 12, B-Natriuretic Peptide 527.9 H 12/16/23 19:28: Troponin I High Sens 12 12/16/23 23:45: Troponin I High Sens 27 12/17/23 06:00: WBC 12.2 H, RBC 3.69 L, Hgb 11.7 L, Hct 34.8 L, MCV 94.3, MCH 31.7, MCHC 33.6, RDW Std Deviation 45.7 H, RDW Coeff of Renita 13.4, Plt Count 154, MPV 9.8, Immature Gran % (Auto) 0.300, Neut % (Auto) 71.8 H, Lymph % (Auto) 17.0 L, [place] % (Auto) 9.8, Eos % (Auto) 0.9, Baso % (Auto) 0.2, Absolute Neuts (auto) 8.8 H, Absolute Lymphs (auto) 2.08, Nucleated RBC % 0, Sodium 139, Potassium 4.2, Chloride 104, Carbon Dioxide 29.0, Anion Gap 6, BUN 20 H, Creatinine 0.99, Estim Creat Clear Calc 33.74, Est GFR (MDRD) Af Amer 68, Est GFR (MDRD) Non-Af 57 L, BUN/Creatinine Ratio 20.2 H, Glucose 232 H, Calcium 9.2 12/17/23 06:21: POC Glucose 230 H Rhythm Strip Rhythm Strip: A-fib Rate: 45 Cardiology Labs/Tests 12/16/23 17:16: D-Dimer Quant (PE/DVT) 3.35 H* 12/16/23 17:19: WBC 14.1 H, RBC 4.13 L, Hgb 12.7, Hct 39.1, MCV 94.7, MCH 30.8, MCHC 32.5, Plt Count 167, MPV 9.9, Immature Gran % (Auto) 0.400, Neut % (Auto) 74.7 H, Lymph % (Auto) 15.4 L, [place] % (Auto) 8.6, Eos % (Auto) 0.6, Baso % (Auto) 0.3, Absolute Neuts (auto) 10.5 H, Nucleated RBC % 0, Sodium 141, Potassium 4.4, Chloride 107, Carbon Dioxide 29.0, Anion Gap 5, BUN 26 H, Creatinine 0.97, Est GFR (MDRD) Af Amer 70, Est GFR (MDRD) Non-Af 58 L, B UN/Creatinine Ratio 26.8 H, Glucose 275 H, Calcium 9.3, B-Natriuretic Peptide 527.9 H 12/17/23 06:00: WBC 12.2 H, RBC 3.69 L, Hgb 11.7 L, Hct 34.8 L, MCV 94.3, MCH 31.7, MCHC 33.6, Plt Count 154, MPV 9.8, Immature Gran % (Auto) 0.300, Neut % (Auto) 71.8 H, Lymph % (Auto) 17.0 L, [place] % (Auto) 9.8, Eos % (Auto) 0.9, Baso % (Auto) 0.2, Absolute Neuts (auto) 8.8 H, Nucleated RBC % 0, Sodium 139, Potassium 4.2, Chloride 104, Carbon Dioxide 29.0, Anion Gap 6, BUN 20 H, Creatinine 0.99, Est GFR (MDRD) Af Amer 68, Est GFR (MDRD) Non-Af 57 L, B UN/Creatinine Ratio 20.2 H, Glucose 232 H, Calcium 9.2 Rhythm: EKG: ECHO: Stress Test: Cardiac Cath: PCI: CT Surgery: Holter monitor: EPS: PPM: CXR: Chest CT Scan: Radiography Diagnostic Testing: Radiology Impression Ankle X-Ray 12/16/23 16:39 IMPRESSION: Negative left ankle x-rays. Electronically Signed: Wolfgang Goldman MD at 18:10 EDT , Brain CT 12/16/23 16:39 IMPRESSION: No acute findings in the head/brain. Electronically Signed: Wolfgang Goldman MD at 17:59 EDT Reading Location ID and State: [facility] / [place] Tel , Service support , Tibia/Fibula X-Ray 12/16/23 16:39 IMPRESSION: Negative left tibia and fibula x-rays. Electronically Signed: Wolfgang Goldman MD at 18:14 EDT Reading Location ID and State: [facility] / [place] Tel , Service support , Chest X-Ray 12/16/23 17:05 IMPRESSION: Fullness in the right hilum which may represent a mass or pulmonary vasculature. Further evaluation with CT scan may be beneficial. Electronically Signed: Wolfgang Goldman MD at 18:14 EDT Reading Location ID and State: [facility] / [place] Tel , Service support , Chest CT 12/16/23 19:30 IMPRESSION: 1. Moderate right-sided pleural effusion. There is no focal consolidation. 2. Mild prominence of the right pulmonary artery. There is no hilar mass identified. Electronically Signed: Wolfgang Goldman MD at 20:58 EDT Reading Location ID and State: [facility] / [place] Tel , Service support , Chest CTA 08/04/24 22:30 IMPRESSION: 1. No evidence of pulmonary embolus. 2. Small to moderate right-sided pleural effusion. 3. There is reflux of contrast into the inferior vena cava and hepatic veins which may indicate decreased cardiac output. Electronically Signed: Wolfgang Goldman MD at 23:57 EDT ,
[2023-12-17 09:02] LABS: Hemoglobin A1c 9.3 % (3.8-5.6)
[2023-12-17] MEDS: 0.9% Normal Saline (1000mL) 1,000 ML 15 ML IV (10:02)
[2023-12-17] MEDS: amLODIPine 5 MG Tablet PO (10:02)
[2023-12-17] MEDS: 0.9% Saline Lock 10 ML Syringe IV ×2 (10:04→19:59)
[2023-12-17] MEDS: metFORMIN (XR) 500 MG Tablet PO (10:06)
[2023-12-17] MEDS: Spironolactone 50 MG Tablet PO (10:09)
[2023-12-17] MEDS: Pantoprazole Sodium 40 MG Tablet PO (10:09)
[2023-12-17 11:59] LABS: Bedside Glucose 302 mg/dL (74-106)
--- NOTE | 2023-12-17 12:30 | PN.HOSP_ITS ---
Reason for Visit Reason for Visit: Diagnoses Atypical atrial flutter (12/17/23) Unspecified atrial flutter (12/17/23) Pleural effusion, not elsewhere classified (12/17/23) Syncope and collapse (12/17/23) Subjective Subjective Saw patient at bedside this morning, son present. Patient was sitting up comfortably in bed, conversing normally, in no acute distress. She had been seen by cardiology prior to my encounter with her and cardiology noted that given her rhythm issue, plan is for pacemaker during this hospitalization. Patient was going to have echo done for further evaluation today. She denied any acute chest pain or discomfort at this time. Patient importantly had significant events that occurred this afternoon. Required transfer to the ICU after an episode of suspected torsades with short period of pulselessness. Suspected that rhythm issues are secondary to worsening chronic pulmonary hypertension leading to right heart dysfunction and significant tricuspid valve regurgitation. Discussed at length with patient's family this evening and Dr. Elias with cardiology is also up to date. Objective Data Objective Data Vital Signs: Vital Signs Temp Pulse Resp BP Pulse Ox O2 Del Method 99.0 F 47 L 16 154/119 H 98 Room Air 12/17/23 08:43 12/17/23 08:43 12/17/23 08:43 12/17/23 08:43 12/17/23 08:43 12/17/23 09:15 Oxygen Delivery Method Room Air Weight: 57.516 kg Body Mass Index (BMI) 22.4 Intake & Output: Intake and Output for Last 24 Hours 12/15/23 12/16/23 12/17/23 23:59 23:59 23:59 Intake Total 500 / 500 240 / 240 Output Total 600 / 600 Balance 500 / 200 -360 / -360 Lab / Micro Data 12/17/23 06:00 12/17/23 06:00 Labs: Laboratory Results - last 24 hr 12/16/23 17:16: D-Dimer Quant (PE/DVT) 3.35 H* 12/16/23 17:19: WBC 14.1 H, RBC 4.13 L, Hgb 12.7, Hct 39.1, MCV 94.7, MCH 30.8, MCHC 32.5, RDW Std Deviation 46.6 H, RDW Coeff of Renita 13.4, Plt Count 167, MPV 9.9, Immature Gran % (Auto) 0.400, Neut % (Auto) 74.7 H, Lymph % (Auto) 15.4 L, [place] % (Auto) 8.6, Eos % (Auto) 0.6, Baso % (Auto) 0.3, Absolute Neuts (auto) 10.5 H, Absolute Lymphs (auto) 2.18, Nucleated RBC % 0, Sodium 141, Potassium 4.4, Chloride 107, Carbon Dioxide 29.0, Anion Gap 5, BUN 26 H, Creatinine 0.97, Estim Creat Clear Calc 34.44, Est GFR (MDRD) Af Amer 70, Est GFR (MDRD) Non-Af 58 L, BUN/Creatinine Ratio 26.8 H, Glucose 275 H, Calcium 9.3, Troponin I High Sens 12, B-Natriuretic Peptide 527.9 H 12/16/23 19:28: Troponin I High Sens 12 12/16/23 23:45: Troponin I High Sens 27 12/17/23 06:00: WBC 12.2 H, RBC 3.69 L, Hgb 11.7 L, Hct 34.8 L, MCV 94.3, MCH 31.7, MCHC 33.6, RDW Std Deviation 45.7 H, RDW Coeff of Renita 13.4, Plt Count 154, MPV 9.8, Immature Gran % (Auto) 0.300, Neut % (Auto) 71.8 H, Lymph % (Auto) 17.0 L, [place] % (Auto) 9.8, Eos % (Auto) 0.9, Baso % (Auto) 0.2, Absolute Neuts (auto) 8.8 H, Absolute Lymphs (auto) 2.08, Nucleated RBC % 0, Sodium 139, Potassium 4.2, Chloride 104, Carbon Dioxide 29.0, Anion Gap 6, BUN 20 H, Creatinine 0.99, Estim Creat Clear Calc 33.74, Est GFR (MDRD) Af Amer 68, Est GFR (MDRD) Non-Af 57 L, BUN/Creatinine Ratio 20.2 H, Glucose 232 H, Hemoglobin A1c 9.3 H, Calcium 9.2 12/17/23 06:21: POC Glucose 230 H 12/17/23 11:18: POC Glucose 302 H Radiography Diagnostic Testing: Radiology Impression Ankle X-Ray 12/16/23 16:39 IMPRESSION: Negative left ankle x-rays. Electronically Signed: Wolfgang Goldman MD at 18:10 EDT Reading Location ID and State: [facility] / [place] Tel , Service support , Brain CT 12/16/23 16:39 IMPRESSION: No acute findings in the head/brain. Electronically Signed: Wolfgang Goldman MD at 17:59 EDT Reading Location ID and State: [facility] / [place] Tel , Service support , Tibia/Fibula X-Ray 12/16/23 16:39 IMPRESSION: Negative left tibia and fibula x-rays. Electronically Signed: Wolfgang Goldman MD at 18:14 EDT Reading Location ID and State: [facility] / [place] Tel , Service support , Chest X-Ray 12/16/23 17:05 IMPRESSION: Fullness in the right hilum which may represent a mass or pulmonary vasculature. Further evaluation with CT scan may be beneficial. Electronically Signed: Wolfgang Goldman MD at 18:14 EDT Reading Location ID and State: [facility] / [place] Tel , Service support , Chest CT 12/16/23 19:30 IMPRESSION: 1. Moderate right-sided pleural effusion. There is no focal consolidation. 2. Mild prominence of the right pulmonary artery. There is no hilar mass identified. Electronically Signed: Wolfgang Goldman MD at 20:58 EDT Reading Location ID and State: [facility] / [place] Tel , Service support , Chest CTA 12/16/23 22:30 IMPRESSION: 1. No evidence of pulmonary embolus. 2. Small to moderate right-sided pleural effusion. 3. There is reflux of contrast into the inferior vena cava and hepatic veins which may indicate decreased cardiac output. Electronically Signed: Wolfgang Goldman MD at 23:57 EDT , Rhythm Strip Rhythm Strip: A-fib Rate: 45 Physical Exam Const alert, oriented x3, no apparent distress and average body habitus Constitutional Narrative: Pleasant elderly female, sitting up comfortably in bed, conversing normally, no acute distress. General Appearance: cooperative and comfortable HEENT normocephalic, head/scalp atraumatic, hearing grossly normal bilaterally, nasal mucous membranes and turbinates normal and moist oral mucous membranes Eyes PERRL, EOMs intact bilaterally and conjunctivae normal Neck full ROM Chest inspection of chest normal Resp normal respiratory effort, normal air movement, no use of accessory muscles and clear to auscultation bilaterally Cardio peripheral pulses 2+ throughout Cardio Narrative: Bradycardia, irregular heart rate. Diastolic murmur noted. GI normal to inspection, nondistended, normoactive bowel sounds, soft to palpation, non-tender and non-distended Back/Spine normal ROM Extremity normal to inspection, full ROM and no pedal edema Skin no rashes or lesions noted Neuro no focal motor deficits and no sensory deficits noted Speech: speech normal Psych mental status grossly normal Assessment & Plan Assessment/Plan (1) Syncope: QUALIFIERS: Syncope type: unspecified Qualified Code(s): R55 - Syncope and collapse (2) Atrial flutter: QUALIFIERS: Atrial flutter type: atypical Qualified Code(s): I 48.4 - Atypical atrial flutter (3) Pulmonary hypertension: (4) Tricuspid valve regurgitation: (5) Pulseless ventricular tachycardia: (6) Torsades de pointes: (7) Pleural effusion: PLAN: Plan Patient is an 88-year-old female who presented [facility] ED on 12/16/23 after a syncopal episode at home. 1. Syncopal episode, newly diagnosed slow A-fib/flutter, severe pulmonary hypertension with moderate RV dysfunction and TV regurgitation, episode of pulseless V. tach suspected due to torsades de pointes, small right-sided pleural effusion ? Cardiology following. Patient presented after syncopal episode at home with reported low blood pressure. On arrival to the ED, found to be in new slow A- fib/flutter. CTA chest showed no PE, small right pleural effusion, otherwise unremarkable. Echo 12/16 showed normal EF but severe pulmonary hypertension with PASP 88 mmHg, moderate RV dysfunction and 3+ tricuspid valve regurgitation. On 12/16, patient had a short pulseless V. tach arrest. See code documentation for further details. She regained a pulse quickly without need for defibrillation or other medications. On telemetry, appeared that patient went into Torsades. Per cardiology, suspect this is consistent with the syncopal episode she had at home. Suspect that rhythm issues are secondary to right heart changes secondary to pulmonary hypertension. Holding patient's home Toprol and other blood pressure medications. Planning for permanent pacemaker during this hospitalization; however, have concern for possible indolent infection as noted below and this will need to be ruled out prior to pacemaker placement. Patient moved up to ICU on 12/16, will continue to monitor closely. 2. Low-grade fevers with mild leukocytosis ? WBC count 14 on admit, down to 12 on hospital day 2. Patient with low-grade fevers up to 99.7F. Unclear if patient has infection, no source identified to this point. UA unremarkable, CTA chest unremarkable, no abdominal pain or discomfort. Blood cultures drawn on 12/16. Procalcitonin ordered. Will hold on starting antibiotics for now. Monitor daily CBC and fever curve. 3. Hypertension ? Holding home amlodipine, hydrochlorothiazide, lisinopril and Toprol given cardiac issues as noted above. Chronic medical conditions: ? Type 2 diabetes mellitus: A1c 9.3% on admit. Continue treatment with sinus counseling with meals while inpatient. ? GERD: Continue home PPI. ? Hyperlipidemia: Continue home atorvastatin. DVT prophylaxis: Not indicated, on therapeutic Lovenox CODE STATUS: Full code, verified. Discussed with patient and family at length on evening of 12/16 and all are in agreement that patient wishes to remain full code. Expected disposition: TBD Total clinical time spent by myself addressing the patient's medical issues, reviewing all the data, and collaborating with patient's care team: 50 minutes. Charges/Coding Visit Charges Inpatient E&M: 45271 Subs Hosp L3
[2023-12-17] MEDS: Lisinopril 20 MG Tablet PO (13:38)
--- NOTE | 2023-12-17 15:59 | CASEMGMT ---
Per admission questions patient does not have a Healthcare POA or Healthcare LW and is not interested in documents. Amena Wills TECHNICAL REP WALLY
[2023-12-17 16:29] LABS: Bedside Glucose 193 mg/dL (74-106)
--- NOTE | 2023-12-17 17:50 | NURSING ---
This RN witnessed Vtach on the nurses station library monitor. Responded quickly to the patient's room, family was calling out that the patient was talking to them and all of a sudden went quiet and slumped backwards on the bed. Pt was unresponsive and no pulse was felt. Jameson Javed was called and chest compressions began. Completed one round of compressions and pt began to respond and had a bounding femoral pulse at 1752. Physician was at bedside and advised transfer to ICU.
--- NOTE | 2023-12-17 17:59 | PCM.HOSP.N ---
Hospitalist Note ALLEN HERNÁNDEZ called overhead around 5:50 PM. I arrived at the bedside about 2 minutes later. Patient was awake and alert at that time and had a pulse. Per nursing, patient went into sustained V. tach on the monitor and patient was not responsive with no pulse when evaluated, so chest compressions were initiated and ALLEN HERNÁNDEZ was called. Patient had conversion back to apparent slow A-fib with only chest compressions, did not receive any defibrillation shocks or IV medications. Patient was anxious while I was at bedside; she was concerned by the number of people in her room surrounding her and was having difficulty grasping what had happened. She denied any chest pain or any other pains or discomfort. Patient notably is planning to have pacemaker placement during this hospitalization. Will move patient up to the ICU now for closer monitoring and notify cardiology of event.
[2023-12-17 18:18] LABS: Bedside Glucose 241 mg/dL (74-106)
[2023-12-17 18:34] LABS: Magnesium 1.9 mg/dL (1.6-2.6)
[2023-12-17] MEDS: 0.9% Normal Saline (250mL Bag) 250 ML 15 ML IV (18:36)
[2023-12-17] MEDS: Magnesium Sulfate 4gm/100mL 4 GM/100 ML IV.SOLN. IV (18:48)
[2023-12-17] MEDS: Vancomycin HCl 1,500 MG in 0.9% Normal Saline (500mL Bag) 500 ML 250 MG IV (18:50)
[2023-12-17] MEDS: Acetaminophen 325 MG Tablet 650 MG PO (21:18)
[2023-12-17] MEDS: Atorvastatin Calcium 20 MG Tablet PO (21:18)
[2023-12-18] VITALS (25 sets, daily range): BP systolic 84–169; BP diastolic 45–109; PULSE 34–68; RESP 18–32; TEMP 36.1–36.6; O2SAT 93–100; BMI 22.4
[2023-12-18 05:04] LABS: Hematocrit 34.3 % (37-47); Hemoglobin 11.4 g/dL (12.0-15.0); Mean Corp Hgb Conc 33.2 g/dL (32-36); Mean Corpuscular Hgb 31.4 pg (27.0-32.0); Mean Corpuscular Volume 94.5 fL (81-99); Mean Platelet Vol. 10.1 fl (6.2-12.0); Platelet Count 139 K/mm3 (150-450); RBC Distribution Width CV 13.3 % (11.6-14.6); RBC Distribution Width SD 45.8 fl (35.1-43.9); Red Blood Count 3.63 M/mm3 (4.2-5.4); White Blood Count 12.3 K/mm3 (4.4-11.0)
[2023-12-18 05:18] LABS: Anion Gap 6 (5-15); BUN 26 mg/dL (7-18); BUN/Creat Ratio 24.3 RATIO (10-20); Calcium,Total 8.9 mg/dL (8.5-10.1); Chloride 103 mmol/L (98-107); Creatinine, Serum 1.07 mg/dL (0.55-1.02); EST Glomerular Filtration Rate 52 mL/min (>60); Est Glom Filt Rate - Afr Amer 62 mL/min (>60); Estimated Creatinine Clearance 31.22 ml/min; Glucose 230 mg/dL (74-106); Potassium 3.9 mmol/L (3.5-5.1); Sodium Level 139 mmol/L (136-145)
[2023-12-18] MEDS: Acetaminophen 325 MG Tablet 650 MG PO ×3 (06:07→18:02)
--- NOTE | 2023-12-18 07:53 | PN.CARD_ITS ---
Subjective Subjective Patient had an episode of torsades last evening. This required 30 seconds of chest compressions which she spontaneously converted. The patient remains in atrial fibrillation with a slow ventricular response. Her white count is stable at 12.3. She denies any fevers or chills denies any cough. Blood cultures were drawn yesterday at 1500 hrs. and are pending. The patient remains afebrile with a heart rate in the 40 bpm range. Blood pressure is 130/50. Objective Data Vital Signs: Vital Signs Temp Pulse Resp BP Pulse Ox O2 Del Method O2 Flow Rate 97.1 F L 48 L 18 129/50 H 100 Nasal Cannula 3 12/18/23 06:00 12/18/23 07:00 12/18/23 07:00 12/18/23 07:00 12/18/23 07:04 12/18/23 07:04 12/18/23 07:04 Oxygen Flow Rate (L/min) 3 Oxygen Delivery Method Nasal Cannula Weight: 126 lb 12.253 oz Body Mass Index (BMI) 22.4 Intake & Output: Intake and Output for Last 24 Hours 12/16/23 12/17/23 12/18/23 23:59 23:59 23:59 Intake Total 500 / 500 387.42 / 587.42 200 / 200 Output Total 600 / 600 0 / 0 Balance 500 / 200 -212.58 / -12.58 200 / 200 Lab / Micro Data Attestation: I reviewed the patient's lab results. 12/18/23 04:45 12/18/23 04:45 Labs: Laboratory Results - last 24 hr 12/17/23 06:00: Hemoglobin A1c 9.3 H, Magnesium 1.9 12/17/23 11:18: POC Glucose 302 H 12/17/23 16:08: POC Glucose 193 H 12/17/23 17:53: POC Glucose 241 H 12/18/23 04:45: WBC 12.3 H, RBC 3.63 L, Hgb 11.4 L, Hct 34.3 L, MCV 94.5, MCH 31.4, MCHC 33.2, RDW Std Deviation 45.8 H, RDW Coeff of Renita 13.3, Plt Count 139 L, MPV 10.1, Sodium 139, Potassium 3.9, Chloride 103, Carbon Dioxide 30.0, Anion Gap 6, BUN 26 H, Creatinine 1.07 H, Estim Creat Clear Calc 31.22, Est GFR (MDRD) Af Amer 62, Est GFR (MDRD) Non-Af 52 L, BUN/Creatinine Ratio 24.3 H, Glucose 230 H, Calcium 8.9 Rhythm Strip Rhythm Strip: A-fib Rate: 40 Ectopy: PVC(s) Cardiology Labs/Tests 12/17/23 06:00: Hemoglobin A1c 9.3 H, Magnesium 1.9 12/18/23 04:45: WBC 12.3 H, RBC 3.63 L, Hgb 11.4 L, Hct 34.3 L, MCV 94.5, MCH 31.4, MCHC 33.2, Plt Count 139 L, MPV 10.1, Sodium 139, Potassium 3.9, Chloride 103, Carbon Dioxide 30.0, Anion Gap 6, BUN 26 H, Creatinine 1.07 H, Est GFR (MDRD) Af Amer 62, Est GFR (MDRD) Non-Af 52 L, BUN/Creatinine Ratio 24.3 H, G lucose 230 H, Calcium 8.9 Rhythm: EKG: ECHO: Stress Test: Cardiac Cath: PCI: CT Surgery: Holter monitor: EPS: PPM: CXR: Chest CT Scan: Radiography Diagnostic Testing: Radiology Impression Echocardiogram 12/16/23 22:26 Interpretation Summary Normal LV size. Left ventricular systolic function is normal. The left ventricular ejection fraction is 65 %. Moderate global right ventricular systolic dysfunction. Pulmonary artery systolic pressure is 88 mmHg. Severe pulmonary hypertension. Ordering Physician: Kody Carrillo Referring Physician: Juany Rao M.D. Performed By: Marci Mccoy RCS Physical Exam Const alert and oriented x3 HEENT normocephalic Eyes EOMs intact bilaterally Neck supple Chest inspection of chest normal Resp normal respiratory effort Auscultation: diminished lung sounds bilateral lower Cardio Rate: bradycardia Rhythm: abnormal rhythm irregularly irregular Heart Sounds: S1 normal, S2 normal and murmur systolic II/ soft right sternal border; Negative for click or gallop GI soft to palpation Extremity no pedal edema Neuro Neuro Narrative: Alert and oriented x 3 Psych mental status grossly normal Assessment & Plan Assessment/Plan (1) Torsades de pointes: PLAN: Patient is a had pulseless ventricular tachycardia with the appearance of torsade the points on telemetry last evening. The patient's QT interval is not excessively prolonged. Her electrolytes were adequate. She does have a newly diagnosed pulmonary hypertension which is severe with pulmonary artery pressures estimated 88 mmHg. There is some mild right ventricular dysfunction. I am uncertain of the etiology of this torsades it may have been bradycardia induced as her heart rate was in the 35 to 40 bpm range with underlying atrial fibrillation at the time of the event. The patient is scheduled for permanent pacemaker implantation once the question of infection is cleared up blood cultures are pending. (2) Pulmonary hypertension: PLAN: Patient's pulmonary artery pressures 88 8 mmHg by estimate from her tricuspid regurgitant jet. She has 3+ tricuspid regurgitation. 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 We will further evaluate this with the pulmonary once the pacemaker is implanted and her cardiovascular status is stabilized. (3) Syncope: QUALIFIERS: Syncope type: unspecified Qualified Code(s): R55 - Syncope and collapse PLAN: In retrospect the patient's syncopal episode in her home environment probably was similar to what happened last evening in the hospital with the short burst of torsades. She reports that the events were very similar as what she remembered. As noted the pacemaker will be implanted as soon as we can clear up the issue with a potential infection. (4) Paroxysmal atrial fibrillation: PLAN: The patient remains in atrial fibrillation with a slow ventricular response in the 40 bpm range. Permanent pacemaker will be implanted. She does have significant right sided issues with pulmonary hypertension with pulmonary artery pressures in the 88 mmHg range. Once the pacer is placed in the pocket is healed the patient will be placed on Eliquis. The patient is 88 years of age and 57 kg so the dose would be 2.5 mg twice daily. (5) HTN (hypertension): QUALIFIERS: Hypertension type: primary hypertension Qualified Code(s): I10 - Essential (primary) hypertension PLAN: Patient's blood pressure is adequately controlled but she is at a heart rate of 40 bpm on average. Once the pacemaker is implanted we would reinstitute her beta-loc metoprolol succinate 50 mg daily and continue her lisinopril 40 mg daily along with spironolactone 50 mg daily. She is also on amlodipine 10 mg daily. These will need to be reinstated in a stepwise fashion depending on her blood pressure response. Currently her amlodipine, lisinopril, metoprolol, and spironolactone have all been placed on hold. PLAN: Plan 1. Will evaluate the patient with Dr. Tijerina to determine best timing for permanent pacemaker implantation. 2. Will continue to monitor electrolytes and blood work. 3. Once the permanent pacemaker is implanted reintroduction of her antihypertensives will be on a stepwise basis match to her blood pressure response. Charges/Coding Visit Charges Inpatient E&M: 49283 Subs Hosp L3
[2023-12-18 08:07] LABS: Bedside Glucose 160 mg/dL (74-106)
[2023-12-18] MEDS: Furosemide 20 MG/2 ML VIAL IV (08:38)
[2023-12-18 08:50] LABS: Procalcitonin 0.26 ng/mL (0.00-0.09)
--- NOTE | 2023-12-18 09:52 | PCM.PN.HOSP ---
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 Saw patient at bedside this morning. Patient was sitting up comfortably in bed, conversing normally, in no acute distress. She had no further cardiac events overnight and remains in A-fib with rate around 60 this morning. Was seen by cardiology earlier this morning, no changes made to medication, planning for pacemaker placement once infection has been ruled out (likely tomorrow). Patient denies any fevers or chills. No other acute concerns this morning. Objective Data Objective Data Vital Signs: Vital Signs Temp Pulse Resp BP Pulse Ox O2 Del Method O2 Flow Rate 97.3 F L 54 L 21 H 155/47 H 100 Nasal Cannula 2 12/18/23 08:00 12/18/23 08:00 12/18/23 08:00 12/18/23 08:00 12/18/23 08:00 12/18/23 08:00 12/18/23 08:00 Oxygen Flow Rate (L/min) 2 Oxygen Delivery Method Nasal Cannula Weight: 57.5 kg Body Mass Index (BMI) 22.4 Intake & Output: Intake and Output for Last 24 Hours 12/16/23 12/17/23 12/18/23 23:59 23:59 23:59 Intake Total 500 / 500 387.42 / 587.42 523.25 / 523.25 Output Total 600 / 600 0 / 0 Balance 500 / 200 -212.58 / -12.58 523.25 / 523.25 Lab / Micro Data 12/18/23 04:45 12/18/23 04:45 Labs: Laboratory Results - last 24 hr 12/17/23 06:00: Magnesium 1.9 12/17/23 11:18: POC Glucose 302 H 12/17/23 16:08: POC Glucose 193 H 12/17/23 17:53: POC Glucose 241 H 12/18/23 04:45: WBC 12.3 H, RBC 3.63 L, Hgb 11.4 L, Hct 34.3 L, MCV 94.5, MCH 31.4, MCHC 33.2, RDW Std Deviation 45.8 H, RDW Coeff of Renita 13.3, Plt Count 139 L, MPV 10.1, Sodium 139, Potassium 3.9, Chloride 103, Carbon Dioxide 30.0, Anion Gap 6, BUN 26 H, Creatinine 1.07 H, Estim Creat Clear Calc 31.22, Est GFR (MDRD) Af Amer 62, Est GFR (MDRD) Non-Af 52 L, BUN/Creatinine Ratio 24.3 H, Glucose 230 H, Calcium 8.9 12/18/23 07:33: POC Glucose 160 H 12/18/23 07:42: Procalcitonin 0.26 H Radiography Diagnostic Testing: Radiology Impression Echocardiogram 12/16/23 22:26 Interpretation Summary Normal LV size. Left ventricular systolic function is normal. The left ventricular ejection fraction is 65 %. Moderate global right ventricular systolic dysfunction. Pulmonary artery systolic pressure is 88 mmHg. Severe pulmonary hypertension. Ordering Physician: Kody Carrillo Referring Physician: Juany Rao M.D. Performed By: Marci Mccoy RCS Rhythm Strip Rhythm Strip: A-fib Rate: 40 Ectopy: PVC(s) Physical Exam Const alert, oriented x3, no apparent distress and average body habitus Constitutional Narrative: Pleasant elderly female, sitting up comfortably in bed, conversing normally, no acute distress. General Appearance: cooperative and comfortable HEENT normocephalic, head/scalp atraumatic, hearing grossly normal bilaterally, nasal mucous membranes and turbinates normal and moist oral mucous membranes Eyes PERRL, EOMs intact bilaterally and conjunctivae normal Neck full ROM Chest inspection of chest normal Resp normal respiratory effort, normal air movement, no use of accessory muscles and clear to auscultation bilaterally Cardio peripheral pulses 2+ throughout Cardio Narrative: Bradycardia, irregular heart rate. Diastolic murmur noted. GI normal to inspection, nondistended, normoactive bowel sounds, soft to palpation, non-tender and non-distended Back/Spine normal ROM Extremity normal to inspection, full ROM and no pedal edema Skin no rashes or lesions noted Neuro no focal motor deficits and no sensory deficits noted Speech: speech normal Psych mental status grossly normal Mood & Affect: anxious Assessment & Plan Assessment/Plan (1) Syncope: QUALIFIERS: Syncope type: unspecified Qualified Code(s): R55 - Syncope and collapse (2) Atrial flutter: QUALIFIERS: Atrial flutter type: atypical Qualified Code(s): I48.4 - Atypical atrial flutter (3) Pulmonary hypertension: (4) Tricuspid valve regurgitation: (5) Pulseless ventricular tachycardia: (6) Torsades de pointes: (7) Pleural effusion: PLAN: Plan Patient is an 88-year-old female who presented [facility] ED on 12/16/23 after a syncopal episode at home. 1. Syncopal episode, newly diagnosed slow A-fib/flutter, severe pulmonary hypertension with moderate RV dysfunction and TV regurgitation, episode of pulseless V. tach suspected due to torsades de pointes, small right-sided pleural effusion ? Cardiology following. Patient presented after syncopal episode at home with reported low blood pressure. On arrival to the ED, found to be in new slow A-fib/flutter. CTA chest showed no PE, small right pleural effusion, otherwise unremarkable. Echo 12/16 showed normal EF but severe pulmonary hypertension with PASP 88 mmHg, moderate RV dysfunction and 3+ tricuspid valve regurgitation. On 12/16, patient had a short pulseless V. tach arrest. See code documentation for further details. She regained a pulse quickly without need for defibrillation or other medications. On telemetry, appeared that patient went into Torsades. Per cardiology, suspect this is consistent with the syncopal episode she had at home. Suspect that rhythm issues are secondary to right heart changes secondary to pulmonary hypertension. Holding patient's home Toprol and other blood pressure medications. Planning for permanent pacemaker during this hospitalization; however, have concern for possible indolent infection as noted below and this will need to be ruled out prior to pacemaker placement. Patient moved up to ICU on 12/16. Stable on 12/17, and A-fib with rate around 60 and hemodynamically stable. Likely planning for pacemaker placement tomorrow. Appreciate further cardiology recommendations. 2. Low-grade fevers with mild leukocytosis ? WBC count 14 on admit, down to 12 on hospital day 2. Patient with low-grade fevers up to 99.7F. Unclear if patient has infection, no source identified to this point. UA unremarkable, CTA chest unremarkable, no abdominal pain or discomfort. Blood cultures drawn on 12/16, no growth to date. Procalcitonin 0.26, only slightly above normal range. Will hold on starting antibiotics for now. Monitor daily CBC and fever curve. 3. Hypertension ? Holding home amlodipine, hydrochlorothiazide, lisinopril and Toprol given cardiac issues as noted above. Chronic medical conditions: ? Type 2 diabetes mellitus: A1c 9.3% on admit. Continue treatment with sliding scale insulin with meals while inpatient. ? GERD: Continue home PPI. ? Hyperlipidemia: Continue home atorvastatin. DVT prophylaxis: Not indicated, on therapeutic Lovenox CODE STATUS: Full code, verified. Discussed with patient and family at length on evening of 12/16 and all are in agreement that patient wishes to remain full code. Expected disposition: TBD Total clinical time spent by myself addressing the patient's medical issues, reviewing all the data, and collaborating with patient's care team: 35 minutes. Charges/Coding Visit Charges Inpatient E&M: 43945 Subs Hosp L2
[2023-12-18] MEDS: Enoxaparin 60 MG/0.6 ML Syringe SC (11:06)
--- NOTE | 2023-12-18 12:06 | CASEMGMT ---
JOSE MARCH Assessment Face to Face with patient for initial transition planning/care coordination assessment. JOSE MARCH introduced self and role at [facility], pt voices understanding. Pt is A&Ox4 and is resting comfortably in bed and is calm. Pt son and daughter at bedside. Care providers, pharmacy, and demographics verified. Admitting dx: Syncope LACE Strata: 1 PCP: Juany Rao Specialists: Denies CAREER TECHNICAL SUPERVISOR. [facility] is seeing pt here Preferred Pharmacy: [facility] Insurance: [facility] A/B, [place] MCR Prescription Benefit: Yes LNOK: Deshawn Schmidt (Son), Lavinia Schmidt (EMILY) Living Arrangements: Pt lives with her sister in a ground level apartment with one step to enter ADLs/IADLs: Ind CAREER TECHNICAL SUPERVISOR. Pt is requiring assistance now. Transportation: Pt normally drives self. Pt son and daughter are able to drive too DME: BGM and supplies. BP Monitor. Cane. FWW. BSC. HHC/SNF: Denies history Pt?s goal: Return to PLOF Plan: TBD. Anticipate HH vs SNF. At this time, the pt is agreeable to go to a SNF for further rehab to help her return to PLOF. PT/OT is pending and will not see today d/t the pt being unstable (pt had a code blue called in PCU CAREER TECHNICAL SUPERVISOR in ICU). Pt is also planned to get a pacer placed. SW notified and aware. JOAQUIM and SW to follow. Norma Hirsch RN, CM
[2023-12-18] MEDS: Insulin Lispro 100 UNIT/ML INSULN.PEN SC (12:14)
[2023-12-18 12:30] LABS: Bedside Glucose 306 mg/dL (74-106)
--- NOTE | 2023-12-18 14:06 | CASEMGMT ---
Social Work SW created in [facility] a list of intermediate facilities in network w/pt's insurance, in pt's preferred geographic area, and complete w/quality and resource use data, should pt and family want to review SNF options. MICK Garza
--- NOTE | 2023-12-18 15:34 | CASEMGMT ---
Social Work Sw met with patient at bedside, who was AOx4. Also present was patient's son, Deshawn. Patient expressing desire to complete Advanced Directives. Sw completed Living will and Power of Solar Power Installer paperwork with patient. Patient identified her son, Deshawn Schmidt as her first agent. Copy of documents provided and copy scanned into patient's chart. No other needs expressed at this time. Aby Juan, PATTERN MECHANIC, MARINE RESOURCE ECONOMIST
[2023-12-18 17:10] LABS: Bedside Glucose 185 mg/dL (74-106)
[2023-12-18] MEDS: Atropine Sulfate 1 MG/10 ML Syringe IV (18:43)
[2023-12-18] MEDS: Atorvastatin Calcium 20 MG Tablet PO (20:19)
[2023-12-19] VITALS (25 sets, daily range): BP systolic 107–170; BP diastolic 39–105; PULSE 30–73; RESP 14–25; TEMP 36.2–37.1; O2SAT 90–100; BMI 21.3
[2023-12-19 05:04] LABS: Hematocrit 34.5 % (37-47); Hemoglobin 11.3 g/dL (12.0-15.0); Mean Corp Hgb Conc 32.8 g/dL (32-36); Mean Corpuscular Hgb 30.6 pg (27.0-32.0); Mean Corpuscular Volume 93.5 fL (81-99); Mean Platelet Vol. 9.7 fl (6.2-12.0); Platelet Count 149 K/mm3 (150-450); RBC Distribution Width CV 13.5 % (11.6-14.6); Red Blood Count 3.69 M/mm3 (4.2-5.4); White Blood Count 14.3 K/mm3 (4.4-11.0)
[2023-12-19 05:22] LABS: Anion Gap 7 (5-15); BUN 28 mg/dL (7-18); BUN/Creat Ratio 27.7 RATIO (10-20); Calcium,Total 8.6 mg/dL (8.5-10.1); Chloride 100 mmol/L (98-107); Creatinine, Serum 1.01 mg/dL (0.55-1.02); EST Glomerular Filtration Rate 55 mL/min (>60); Est Glom Filt Rate - Afr Amer 67 mL/min (>60); Estimated Creatinine Clearance 33.07 ml/min; Glucose 311 mg/dL (74-106); Potassium 4.1 mmol/L (3.5-5.1); Sodium Level 137 mmol/L (136-145)
[2023-12-19] MEDS: Acetaminophen 325 MG Tablet 650 MG PO ×2 (05:33→17:49)
[2023-12-19] MEDS: CHLORHEXIDINE GLUC 2% CLOTH 1 EACH TOWELETTE TOPICAL (05:36)
[2023-12-19] MEDS: 0.9% Saline Lock 10 ML Syringe IV (05:36)
--- NOTE | 2023-12-19 05:55 | EKG12_ITS ---
Test Reason : preop Blood Pressure : / mmHG Vent. Rate : 049 BPM Atrial Rate : 000 BPM P-R Int : 000 ms QRS Dur : 132 ms QT Int : 550 ms P-R-T Axes : 000 129 197 degrees QTc Int : 496 ms Atrial fibrillation with slow ventricular response Right bundle branch block Left posterior fascicular block Bifascicular block T wave abnormality, consider lateral ischemia Abnormal ECG Confirmed by AV MURILLO, MARIPOSA ([id number]), business editor RAPHAEL BARBER ([id number]) on 12/24/2023 10:22:57 AM Referred By: Curt Confirmed By:DHEERAJ LEY MD
[2023-12-19] MEDS: Insulin Lispro 100 UNIT/ML INSULN.PEN SC ×3 (07:41→15:52)
[2023-12-19] MEDS: Pantoprazole Sodium 40 MG Tablet PO (07:42)
[2023-12-19 08:06] LABS: Bedside Glucose 287 mg/dL (74-106)
--- NOTE | 2023-12-19 09:02 | PCM.PN.CARD ---
Subjective Subjective Patient denies any new complaints. Her heart rate has slightly increased overnight into the 50 to 60 bpm range. However her white blood cell count has climbed and her procalcitonin is elevated 0.29. We will obtain an infectious disease consult to ascertain the best timing for device implant for her permanent pacemaker. Objective Data Vital Signs: Vital Signs Temp Pulse Resp BP Pulse Ox O2 Del Method O2 Flow Rate 97.1 F L 73 21 H 127/91 H 95 Nasal Cannula 2 12/19/23 04:00 12/19/23 08:00 12/19/23 08:00 12/19/23 08:00 12/19/23 07:00 12/19/23 08:00 12/19/23 08:00 Oxygen Flow Rate (L/min) 2 Oxygen Delivery Method Nasal Cannula Weight: 120 lb 9.486 oz Body Mass Index (BMI) 21.3 Intake & Output: Intake and Output for Last 24 Hours 12/17/23 12/18/23 12/19/23 23:59 23:59 23:59 Intake Total 387.42 / 587.42 523.25 / 523.25 Output Total 600 / 600 1275 / 1275 200 / 200 Balance -212.58 / -12.58 -751.75 / -751.75 -200 / -200 Lab / Micro Data Attestation: I reviewed the patient's lab results. 12/19/23 04:57 12/19/23 04:57 Labs: Laboratory Results - last 24 hr 12/18/23 12:11: POC Glucose 306 H 12/18/23 16:51: POC Glucose 185 H 12/19/23 04:57: WBC 14.3 H, RBC 3.69 L, Hgb 11.3 L, Hct 34.5 L, MCV 93.5, MCH 30.6, MCHC 32.8, RDW Std Deviation 46.0 H, RDW Coeff of Renita 13.5, Plt Count 149 L, MPV 9.7, Sodium 137, Potassium 4.1, Chloride 100, Carbon Dioxide 30.0, Anion Gap 7, BUN 28 H, Creatinine 1.01, Estim Creat Clear Calc 33.07, Est GFR (MDRD) Af Amer 67, Est GFR (MDRD) Non-Af 55 L, BUN/Creatinine Ratio 27.7 H, Glucose 311 H, Calcium 8.6 12/19/23 07:40: POC Glucose 287 H Rhythm Strip Rhythm Strip: A-fib Rate: 55 Ectopy: PVC(s) Cardiology Labs/Tests 12/19/23 04:57: WBC 14.3 H, RBC 3.69 L, Hgb 11.3 L, Hct 34.5 L, MCV 93.5, MCH 30.6, MCHC 32.8, Plt Count 149 L, MPV 9.7, Sodium 137, Potassium 4.1, Chloride 100, Carbon Dioxide 30.0, Anion Gap 7, BUN 28 H, Creatinine 1.01, Est GFR (MDRD) Af Amer 67, Est GFR (MDRD) Non-Af 55 L, BUN/Creatinine Ratio 27.7 H, Glucose 311 H, Calcium 8.6 Rhythm: EKG: ECHO: Stress Test: Cardiac Cath: PCI: CT Surgery: Holter monitor: EPS: PPM: CXR: Chest CT Scan: Physical Exam Const alert and oriented x3 HEENT normocephalic Eyes EOMs intact bilaterally Neck no JVD Chest inspection of chest normal Resp normal respiratory effort Auscultation: crackles bilateral base Cardio Rate: bradycardia Rhythm: abnormal rhythm irregularly irregular Heart Sounds: S1 normal and S2 normal; Negative for click, gallop or murmur Extremity no pedal edema Neuro Neuro Narrative: Alert and oriented x 3 Psych mental status grossly normal Assessment & Plan Assessment/Plan (1) Paroxysmal atrial fibrillation: PLAN: The patient remains in atrial fibrillation with a slow ventricular response although it has increased over the last 24 hours. Heart rate is now in the 50 to 60 bpm range. She is on no rate modulating medications. She has had no recurrence of the torsades or ventricular tachycardia. She did have some frequent PVCs which resolved with a milligram of IV atropine. Although her heart rate did not increase much it did seem to override the PVCs occurring with the profound bradycardia in the 35 bpm range. The patient's white count continues to go up she has a positive procalcitonin but she has been afebrile. The concern is placing the permanent pacemaker in a patient who is potentially infected. We are going to ask the infectious disease team to see the patient to evaluate her to get their opinion. (2) Torsades de pointes: PLAN: The patient's had no recurrence of the torsades. It is believed that this was bradycardia mediated. (3) Syncope: QUALIFIERS: Syncope type: unspecified Qualified Code(s): R55 - Syncope and collapse PLAN: It appears the patient's syncope was related to an arrhythmia most likely related to her bradycardia and/or torsades mediated by the bradycardia. (4) HTN (hypertension): QUALIFIERS: Hypertension type: primary hypertension Qualified Code(s): I10 - Essential (primary) hypertension PLAN: Pressure is well-controlled on her current medical therapy. PLAN: Plan 1. Consult infectious disease for their opinion concerning timing of pacemaker implantation. 2. Will continue to monitor the patient in the intensive care unit. 3. Dr. Tijerina will be performing the pacemaker implantation when it is cleared by infectious disease. Charges/Coding Visit Charges Inpatient E&M: 32879 Subs Hosp L2
[2023-12-19] MEDS: Enoxaparin 60 MG/0.6 ML Syringe SC ×2 (09:05→20:05)
--- NOTE | 2023-12-19 10:09 | CT_ITS ---
STUDY: CT FACIAL BONES WITH CONTRAST REASON FOR EXAM: Female, 88 years old. Eval for tooth abscess RADIATION DOSAGE (If Supplied By Facility): CTDIvol = ( 29.38 ) mGy, DLP = ( 525.42 ) mGycm TECHNIQUE: The patient was scanned in a multi detector CT scanner. Transaxial imaging was performed following the intravenous administration of IV 75mL Isovue-370. Sagittal and coronal images were reconstructed. Individualized dose optimization techniques were used for this CT. COMPARISON: None. FINDINGS: There is a 1.8 cm x 0.9 cm heterogeneous nodule in the lower pole of the right lobe of the thyroid. Limited visualization of the lower teeth due to beam hardening artifact from prior dental work. Normal orbital mojica and orbital contents. Normal nasal bones and anterior nasal spine. Normal facial bones. There is no demonstrated fracture. Normal visualized paranasal sinuses. CT/Sinus/Facial Bone WITH Contras IMPRESSION: Heterogeneous nodule in the lower pole of the right lobe of the thyroid. Electronically Signed: Darron Du MD at 11:10 EDT ,
--- NOTE | 2023-12-19 12:26 | PCM.PN.HOSP ---
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 Saw patient at bedside this morning. Appeared similar to yesterday. Sitting up comfortably in bed, conversing normally, in no acute distress. Her heart rate was stable around 60 again this morning. She denied any chest pain or discomfort. She and daughter did note that her right lower molar tooth has been bothering her for some time and they were wondering if this could be a possible source of infection for her. She denied any fevers or chills. No other new concerns today. Objective Data Objective Data Vital Signs: Vital Signs Temp Pulse Resp BP Pulse Ox O2 Del Method O2 Flow Rate 97.6 F L 46 L 22 H 151/56 H 94 Nasal Cannula 2 12/19/23 12:00 12/19/23 12:00 12/19/23 12:00 12/19/23 12:00 12/19/23 12:00 12/19/23 12:00 12/19/23 12:00 Oxygen Flow Rate (L/min) 2 Oxygen Delivery Method Nasal Cannula Weight: 54.7 kg Body Mass Index (BMI) 21.3 Intake & Output: Intake and Output for Last 24 Hours 12/17/23 12/18/23 12/19/23 23:59 23:59 23:59 Intake Total 387.42 / 587.42 523.25 / 523.25 360 / 360 Output Total 600 / 600 1275 / 1275 600 / 600 Balance -212.58 / -12.58 -751.75 / -751.75 -240 / -240 Lab / Micro Data 12/19/23 04:57 12/19/23 04:57 Labs: Laboratory Results - last 24 hr 12/18/23 12:11: POC Glucose 306 H 12/18/23 16:51: POC Glucose 185 H 12/19/23 04:57: WBC 14.3 H, RBC 3.69 L, Hgb 11.3 L, Hct 34.5 L, MCV 93.5, MCH 30.6, MCHC 32.8, RDW Std Deviation 46.0 H, RDW Coeff of Renita 13.5, Plt Count 149 L, MPV 9.7, Sodium 137, Potassium 4.1, Chloride 100, Carbon Dioxide 30.0, Anion Gap 7, BUN 28 H, Creatinine 1.01, Estim Creat Clear Calc 33.07, Est GFR (MDRD) Af Amer 67, Est GFR (MDRD) Non-Af 55 L, BUN/Creatinine Ratio 27.7 H, Glucose 311 H, Calcium 8.6 12/19/23 07:40: POC Glucose 287 H Radiography Diagnostic Testing: Radiology Impression Facial/Sinus 12/19/23 10:09 IMPRESSION: Heterogeneous nodule in the lower pole of the right lobe of the thyroid. Electronically Signed: Darron Du MD at 11:10 EDT , Rhythm Strip Rhythm Strip: A-fib Rate: 55 Ectopy: PVC(s) Physical Exam Const alert, oriented x3, no apparent distress and average body habitus Constitutional Narrative: Pleasant elderly female, sitting up comfortably in bed, conversing normally, no acute distress. General Appearance: cooperative and comfortable HEENT normocephalic, head/scalp atraumatic, hearing grossly normal bilaterally, nasal mucous membranes and turbinates normal and moist oral mucous membranes HEENT Narrative: Right lower molar tooth and back with some blackening of tooth but no erythema or purulence around the tooth. Eyes PERRL, EOMs intact bilaterally and conjunctivae normal Neck full ROM Chest inspection of chest normal Resp normal respiratory effort, normal air movement, no use of accessory muscles and clear to auscultation bilaterally Cardio peripheral pulses 2+ throughout Cardio Narrative: Bradycardia, irregular heart rate. Diastolic murmur noted. Stable. GI normal to inspection, nondistended, normoactive bowel sounds, soft to palpation, non-tender and non-distended Back/Spine normal ROM Extremity normal to inspection, full ROM and no pedal edema Skin no rashes or lesions noted Neuro no focal motor deficits and no sensory deficits noted Speech: speech normal Psych mental status grossly normal Mood & Affect: anxious Assessment & Plan Assessment/Plan (1) Syncope: QUALIFIERS: Syncope type: unspecified Qualified Code(s): R55 - Syncope and collapse (2) Atrial flutter: QUALIFIERS: Atrial flutter type: atypical Qualified Code(s): I48.4 - Atypical atrial flutter (3) Pulmonary hypertension: (4) Tricuspid valve regurgitation: (5) Pulseless ventricular tachycardia: (6) Torsades de pointes: (7) Pleural effusion: PLAN: Plan Patient is an 88-year-old female who presented [facility] ED on 12/16/23 after a syncopal episode at home. 1. Syncopal episode, newly diagnosed slow A-fib/flutter, severe pulmonary hypertension with moderate RV dysfunction and TV regurgitation, episode of pulseless V. tach suspected due to torsades de pointes, small right-sided pleural effusion ? Cardiology following. Patient presented after syncopal episode at home with reported low blood pressure. On arrival to the ED, found to be in new slow A-fib/flutter. CTA chest showed no PE, small right pleural effusion, otherwise unremarkable. Echo 12/16 showed normal EF but severe pulmonary hypertension with PASP 88 mmHg, moderate RV dysfunction and 3+ tricuspid valve regurgitation. On 12/16, patient had a short pulseless V. tach arrest. See code documentation for further details. She regained a pulse quickly without need for defibrillation or other medications. On telemetry, appeared that patient went into Torsades. Per cardiology, suspect this is consistent with the syncopal episode she had at home. Suspect that rhythm issues are secondary to right heart changes secondary to pulmonary hypertension. Holding patient's home Toprol and other blood pressure medications. Planning for permanent pacemaker during this hospitalization; however, have concern for possible indolent infection as noted below and this will need to be ruled out prior to pacemaker placement. Patient moved up to ICU on 12/16. Stable on 12/17, and A-fib with rate around 60 and hemodynamically stable. Planning for pacemaker placement once infection has either been treated or ruled out has below. 2. Low-grade fevers with mild leukocytosis ? Infectious disease following. WBC count 14 on admit, has remained stable around 12-14. Patient with low-grade fevers up to 99.7F on day of admit. Unclear if patient has infection. UA unremarkable, CTA chest unremarkable, no abdominal pain or discomfort. Notably, patient reported right lower molar pain recently and on exam, some blackening of the tooth and decay noted though no erythema or eli purulence surrounding the tooth. CT facial/sinus with IV contrast on 12/18 unfortunately was limited due to prior dental work. Blood cultures drawn on 12/16, no growth to date. Procalcitonin 0.26, only slightly above normal range. Per ID recs, started on p.o. Augmentin on 12/18 and will discuss if need for tooth to be pulled. Continue to monitor daily CBC and fever curve. 3. Hypertension ? Holding home amlodipine, hydrochlorothiazide, lisinopril and Toprol given cardiac issues as noted above. Chronic medical conditions: ? Type 2 diabetes mellitus: A1c 9.3% on admit. Continue treatment with sliding scale insulin with meals while inpatient. ? GERD: Continue home PPI. ? Hyperlipidemia: Continue home atorvastatin. DVT prophylaxis: Not indicated, on therapeutic Lovenox CODE STATUS: Full code, verified. Discussed with patient and family at length on evening of 12/16 and all are in agreement that patient wishes to remain full code. Expected disposition: TBD Total clinical time spent by myself addressing the patient's medical issues, reviewing all the data, and collaborating with patient's care team: 35 minutes. Charges/Coding Visit Charges Inpatient E&M: 29531 Subs Hosp L2
--- NOTE | 2023-12-19 15:36 | CON.PCM.ID_ITS ---
Assessment & Plan Assessment/Plan (1) Leukocytosis: PLAN: Per [facility] records, baseline wbc has been 12 for past two years. Wbc up to 14 here, will give course of augmentin for suspected infected tooth in R mandible. Plan on being ok for pacer placement in two days. Will follow, thank you HPI Consult Data Date of Consult: 12/19/23 HPI Narrative Reason for Consultation: leukocytosis HPI Narrative: AUSTIN FANG, is a 88 F who presented with recurrent episodes of syncope. No fever or chills, no dysuria, no abd pain, no headache, no rash. Does c/o sore tooth in R mandible for past several weeks, intermittent swelling, no drainage. Admitted to [facility], plan is for pacemaker. Full ROS performed and neg except as noted above. FOR[facility]LY [facility], [facility] Medical History Diabetes HTN (hypertension) Home Medications ?Medication ?Instructions ?Recorded ?Last Taken ?Type amlodipine 10 mg tablet 10 mg PO DAILY 12/16/23 Unknown History atorvastatin 20 mg tablet 20 mg PO DAILY 12/16/23 Unknown History hydrochlorothiazide 12.5 mg capsule 12.5 mg PO DAILY Cardiac 12/16/23 Unknown History hydrochlorothiazide 25 mg tablet 25 mg PO BID Cardiac 12/16/23 Unknown History lisinopril 40 mg tablet 40 mg PO DAILY 12/16/23 Unknown History metformin 500 mg tablet,extended 500 mg PO DAILY 12/16/23 Unknown History release 24 hr metoprolol succinate 50 mg 50 mg PO DAILY 12/16/23 Unknown History tablet,extended release 24 hr omeprazole 40 mg capsule,delayed 40 mg PO DAILY 12/16/23 Unknown History release spironolactone 50 mg tablet 50 mg PO DAILY 12/16/23 Unknown History Allergy/AdvReac Type Severity Reaction Status Date / Time No Known Allergies Allergy Verified 06/03/20 09:52 Surgical History H/O lumpectomy Social History Smoking Status: Never smoker Physical Exam Const alert, oriented x3 and no apparent distress General Appearance: cooperative HEENT normocephalic and head/scalp atraumatic HEENT Narrative: R lower tooth with some necrosis Eyes PERRL and EOMs intact bilaterally Neck supple and No nodes Resp normal air movement and clear to auscultation bilaterally Cardio regular rate and regular rhythm GI soft to palpation, non-tender and non-distended Extremity General Extremity: Negative for edema Skin no rashes or lesions noted Neuro CN's II-XII intact bilaterally Lab / Micro Data Attestation: I reviewed the patient's lab results. 12/19/23 04:57 12/19/23 04:57 Labs: Laboratory Results - last 24 hr 12/18/23 16:51: POC Glucose 185 H 12/19/23 04:57: WBC 14.3 H, RBC 3.69 L, Hgb 11.3 L, Hct 34.5 L, MCV 93.5, MCH 30.6, MCHC 32.8, RDW Std Deviation 46.0 H, RDW Coeff of Renita 13.5, Plt Count 149 L, MPV 9.7, Sodium 137, Potassium 4.1, Chloride 100, Carbon Dioxide 30.0, Anion Gap 7, BUN 28 H, Creatinine 1.01, Estim Creat Clear Calc 33.07, Est GFR (MDRD) Af Amer 67, Est GFR (MDRD) Non-Af 55 L, BUN/Creatinine Ratio 27.7 H, Glucose 311 H, Calcium 8.6 12/19/23 07:40: POC Glucose 287 H Rhythm Strip Rhythm Strip: A-fib Rate: 55 Ectopy: PVC(s) Imaging Radiology Impression Facial/Sinus 12/19/23 10:09 IMPRESSION: Heterogeneous nodule in the lower pole of the right lobe of the thyroid. Electronically Signed: Darron Du MD at 11:10 EDT ,
[2023-12-19] MEDS: Amox/Clavulanate 875 MG Tablet PO (17:43)
[2023-12-19] MEDS: Atorvastatin Calcium 20 MG Tablet PO (20:05)
[2023-12-20] VITALS (14 sets, daily range): BP systolic 137–160; BP diastolic 41–76; PULSE 37–64; RESP 16–23; TEMP 36.4–37; O2SAT 94–98; BMI 21.2
[2023-12-20] MEDS: Acetaminophen 325 MG Tablet 650 MG PO ×3 (01:13→22:01)
[2023-12-20 01:23] LABS: Bedside Glucose 331 mg/dL (74-106)
[2023-12-20 01:23] LABS: Bedside Glucose 387 mg/dL (74-106)
[2023-12-20 04:29] LABS: Hematocrit 33.6 % (37-47); Hemoglobin 11.2 g/dL (12.0-15.0); Mean Corp Hgb Conc 33.3 g/dL (32-36); Mean Corpuscular Volume 93.1 fL (81-99); Mean Platelet Vol. 10.5 fl (6.2-12.0); Platelet Count 168 K/mm3 (150-450); RBC Distribution Width CV 13.5 % (11.6-14.6); RBC Distribution Width SD 45.5 fl (35.1-43.9); Red Blood Count 3.61 M/mm3 (4.2-5.4); White Blood Count 12.4 K/mm3 (4.4-11.0)
[2023-12-20 04:45] LABS: Anion Gap 6 (5-15); BUN 26 mg/dL (7-18); BUN/Creat Ratio 28.5 RATIO (10-20); Calcium,Total 8.7 mg/dL (8.5-10.1); Chloride 101 mmol/L (98-107); Creatinine, Serum 0.91 mg/dL (0.55-1.02); EST Glomerular Filtration Rate 62 mL/min (>60); Est Glom Filt Rate - Afr Amer 75 mL/min (>60); Estimated Creatinine Clearance 36.71 ml/min; Glucose 261 mg/dL (74-106); Potassium 4.2 mmol/L (3.5-5.1); Sodium Level 137 mmol/L (136-145)
--- NOTE | 2023-12-20 07:43 | PN.CARD_ITS ---
Subjective Subjective The patient is resting comfortably in bed this morning without any complaints. Infectious disease saw her and felt she needed a minimum of 2 days of oral antibiotics for this abscessed tooth. She started Augmentin late yesterday. White blood cell count has stabilized but remains elevated. The patient's heart rate is been primarily in the 50 to 60 bpm range remaining in atrial fibrillation while awake. When she falls asleep it does go down in the mid 30s to upper 40s. Objective Data Vital Signs: Vital Signs Temp Pulse Resp BP Pulse Ox O2 Del Method O2 Flow Rate 97.9 F 54 L 18 140/58 H 96 Nasal Cannula 2 12/20/23 04:00 12/20/23 07:00 12/20/23 07:00 12/20/23 07:00 12/20/23 07:00 12/20/23 07:00 12/20/23 07:00 Oxygen Flow Rate (L/min) 2 Oxygen Delivery Method Nasal Cannula Weight: 119 lb 11.376 oz Body Mass Index (BMI) 21.2 Intake & Output: Intake and Output for Last 24 Hours 12/18/23 12/19/23 12/20/23 23:59 23:59 23:59 Intake Total 523.25 / 523.25 720 / 720 Output Total 1275 / 1275 600 / 600 Balance -751.75 / -751.75 120 / 120 Lab / Micro Data Attestation: I reviewed the patient's lab results. 12/20/23 04:21 12/20/23 04:21 Labs: Laboratory Results - last 24 hr 12/19/23 07:40: POC Glucose 287 H 12/19/23 11:07: POC Glucose 331 H 12/19/23 15:47: POC Glucose 387 H 12/20/23 04:21: WBC 12.4 H, RBC 3.61 L, Hgb 11.2 L, Hct 33.6 L, MCV 93.1, MCH 31.0, MCHC 33.3, RDW Std Deviation 45.5 H, RDW Coeff of Renita 13.5, Plt Count 168, MPV 10.5, Sodium 137, Potassium 4.2, Chloride 101, Carbon Dioxide 30.0, Anion Gap 6, BUN 26 H, Creatinine 0.91, Estim Creat Clear Calc 36.71, Est GFR (MDRD) Af Amer 75, Est GFR (MDRD) Non-Af 62, BUN/Creatinine Ratio 28.5 H, Glucose 261 H , Calcium 8.7 Micro: Microbiology 12/17/23 15:45 Blood Culture (Wb) - Anticubital Right Blood Culture - Preliminary No growth in 48 hours. Rhythm Strip Rhythm Strip: A-fib Rate: 50 Ectopy: PVC(s) Cardiology Labs/Tests 12/20/23 04:21: WBC 12.4 H, RBC 3.61 L, Hgb 11.2 L, Hct 33.6 L, MCV 93.1, MCH 31.0, MCHC 33.3, Plt Count 168, MPV 10.5, Sodium 137, Potassium 4.2, Chloride 101, Carbon Dioxide 30.0, Anion Gap 6, BUN 26 H, Creatinine 0.91, Est GFR (MDRD) Af Amer 75, Est GFR (MDRD) Non-Af 62, BUN/Creatinine Ratio 28.5 H, Glucose 261 H , Calcium 8.7 Rhythm: EKG: ECHO: Stress Test: Cardiac Cath: PCI: CT Surgery: Holter monitor: EPS: PPM: CXR: Chest CT Scan: Radiography Diagnostic Testing: Radiology Impression Facial/Sinus 12/19/23 10:09 IMPRESSION: Heterogeneous nodule in the lower pole of the right lobe of the thyroid. Electronically Signed: Darron Du MD at 11:10 EDT , Physical Exam Const alert and oriented x3 HEENT normocephalic Neck no JVD Chest inspection of chest normal Resp normal respiratory effort and clear to auscultation bilaterally Cardio Rate: bradycardia Rhythm: abnormal rhythm irregularly irregular Heart Sounds: S1 normal and S2 normal; Negative for click, gallop or murmur Extremity no pedal edema Neuro Neuro Narrative: Alert and oriented x 3 Psych mental status grossly normal Assessment & Plan Assessment/Plan (1) Paroxysmal atrial fibrillation: PLAN: The patient remains in atrial fibrillation with a slow ventricular response in the 50 to 60 bpm range that slows into the 35 to 45 bpm range with sleep. The patient had a syncopal spell in her home environment and had a second syncopal spell related to torsades in the hospital felt to be bradycardia mediated. A pacemaker will be placed once we have her presumed dental infection under control. At this point time the plan is to maintain her on Augmentin for a minimum of 2 days. This would put us into the weekend and therefore the permanent pacemaker implantation will be planned for Sunday with Dr. Tijerina. The patient from a cardiovascular standpoint could be transferred to the progressive coronary care unit and be up in the room with assistance. (2) Torsades de pointes: PLAN: The patient's had no recurrence of her torsades since her heart rate has increased into the 50 to 60 bpm range primarily. She does need to be monitored on telemetry until we can get the permanent pacemaker implanted. (3) HTN (hypertension): QUALIFIERS: Hypertension type: primary hypertension Qualified Code(s): I10 - Essential (primary) hypertension PLAN: The patient's blood pressure has been adequate controlled on her current meds. Once the pacemaker is implanted she will need to be reevaluated for addition of beta-loc therapy to her medical regimen. PLAN: Plan 1. Continue Augmentin per infectious disease recommendations. 2. Will defer permanent pacemaker implantation until 12/24/2023. 3. Discontinue enoxaparin after the Sunday p.m. dose. 4. Would institute Eliquis once good hemostasis is obtained after the permanent pacemaker is implanted. Eliquis dose should be 2.5 mg twice daily given her age of 88 and her weight. 5. Dr. Mcbride will be available if assistance is needed over the weekend. Charges/Coding Visit Charges Inpatient E&M: [id number] [place] [id number]
[2023-12-20] MEDS: Insulin Lispro 100 UNIT/ML INSULN.PEN SC ×3 (08:17→15:58)
[2023-12-20 08:36] LABS: Bedside Glucose 242 mg/dL (74-106)
[2023-12-20] MEDS: Amox/Clavulanate 875 MG Tablet PO ×2 (08:42→16:52)
[2023-12-20] MEDS: CHLORHEXIDINE GLUC 2% CLOTH 1 EACH TOWELETTE TOPICAL (08:42)
[2023-12-20] MEDS: Pantoprazole Sodium 40 MG Tablet PO (08:42)
--- NOTE | 2023-12-20 09:12 | PN.HOSP_ITS ---
Subjective Subjective Doing well, no issues overnight. Will proceed with pacemaker placement on Sunday to complete at least 2 days of antibiotics for her tooth Objective Data Objective Data Vital Signs: Vital Signs Temp Pulse Resp BP Pulse Ox O2 Del Method O2 Flow Rate 97.9 F 54 L 18 140/58 H 97 Nasal Cannula 3 12/20/23 04:00 12/20/23 07:00 12/20/23 07:00 12/20/23 07:00 12/20/23 08:10 12/20/23 08:10 12/20/23 08:10 Oxygen Flow Rate (L/min) 3 Oxygen Delivery Method Nasal Cannula Weight: 119 lb 11.376 oz Body Mass Index (BMI) 21.2 Intake & Output: Intake and Output for Last 24 Hours 12/19/23 12/20/23 12/21/23 03:59 03:59 03:59 Intake Total 323.25 / 323.25 720 / 720 Output Total 1275 / 1275 600 / 600 Balance -951.75 / -951.75 120 / 120 Lab / Micro Data 12/20/23 04:21 12/20/23 04:21 Labs: Laboratory Results - last 24 hr 12/19/23 11:07: POC Glucose 331 H 12/19/23 15:47: POC Glucose 387 H 12/20/23 04:21: WBC 12.4 H, RBC 3.61 L, Hgb 11.2 L, Hct 33.6 L, MCV 93.1, MCH 31.0, MCHC 33.3, RDW Std Deviation 45.5 H, RDW Coeff of Renita 13.5, Plt Count 168, MPV 10.5, Sodium 137, Potassium 4.2, Chloride 101, Carbon Dioxide 30.0, Anion Gap 6, BUN 26 H, Creatinine 0.91, Estim Creat Clear Calc 36.71, Est GFR (MDRD) Af Amer 75, Est GFR (MDRD) Non-Af 62, BUN/Creatinine Ratio 28.5 H, Glucose 261 H , Calcium 8.7 12/20/23 08:14: POC Glucose 242 H Micro: Microbiology 12/17/23 15:45 Blood Culture (Wb) - Anticubital Right Blood Culture - Preliminary No growth in 48 hours. Radiography Diagnostic Testing: Radiology Impression Facial/Sinus 12/19/23 10:09 IMPRESSION: Heterogeneous nodule in the lower pole of the right lobe of the thyroid. Electronically Signed: Darron Du MD at 11:10 EDT , Rhythm Strip Rhythm Strip: A-fib Rate: 50 Ectopy: PVC(s) Physical Exam Narrative General: Alert, Oriented x3, Cooperative, No apparent distress HEENT: Atraumatic, PERRLA, EOMI, Normocephalic Oral: Moist Mucosa Neck: Supple, No JVD Lungs: Diminished, Normal air movement, No rhonchi, No wheeze, No rales Cardiovascular: Bradycardic, irregular rhythm, Normal S1, Normal S2, No murmurs Abdomen: Soft, Non Tender, Non-Distended, No Hepato-splenomegaly Extremities: No edema, Capillary Refill Less than 3 Seconds Skin: No rashes, No breakdown Musculoskeletal: No Tenderness to Palpation of Joints or Extremities Neurological: No focal neurological deficits, Motor Exam 5/5 strength throughout, Sensory exam intact to light touch and pain Psych/Mental Status: Normal Affect, Appropriate Assessment & Plan Assessment/Plan (1) Syncope: QUALIFIERS: Syncope type: unspecified Qualified Code(s): R55 - Syncope and collapse (2) Atrial flutter: QUALIFIERS: Atrial flutter type: atypical Qualified Code(s): I 48.4 - Atypical atrial flutter (3) Pulmonary hypertension: (4) Tricuspid valve regurgitation: (5) Pulseless ventricular tachycardia: (6) Torsades de pointes: (7) Pleural effusion: PLAN: Plan 1. Syncopal episode, newly diagnosed slow A-fib/flutter, severe pulmonary hypertension with moderate RV dysfunction and TV regurgitation, episode of pulseless V. tach suspected due to torsades de pointes, small right-sided pleural effusion ? Cardiology following. Patient presented after syncopal episode at home with reported low blood pressure. On arrival to the ED, found to be in new slow A- fib/flutter. CTA chest showed no PE, small right pleural effusion, otherwise unremarkable. Echo 12/16 showed normal EF but severe pulmonary hypertension with PASP 88 mmHg, moderate RV dysfunction and 3+ tricuspid valve regurgitation. On 12/16, patient had a short pulseless V. tach arrest. See code documentation for further details. She regained a pulse quickly without need for defibrillation or other medications. On telemetry, appeared that patient went into Torsades. Per cardiology, suspect this is consistent with the syncopal episode she had at home. Suspect that rhythm issues are secondary to right heart changes secondary to pulmonary hypertension. Holding patient's home Toprol and other blood pressure medications. Planning for permanent pacemaker during this hospitalization; however, have concern for possible indolent infection as noted below and this will need to be ruled out prior to pacemaker placement. Patient moved up to ICU on 12/16. Stable on 12/17, and A-fib with rate around 60 and hemodynamically stable. Planning for pacemaker placement once infection has either been treated or ruled out has below. 12/20/2023: Plan for pacemaker placement on Sunday to complete multiple days of oral antibiotics 2. Low-grade fevers with mild leukocytosis ? Infectious disease following. WBC count 14 on admit, has remained stable around 12-14. Patient with low-grade fevers up to 99.7F on day of admit. Unclear if patient has infection. UA unremarkable, CTA chest unremarkable, no abdominal pain or discomfort. Notably, patient reported right lower molar pain recently and on exam, some blackening of the tooth and decay noted though no erythema or eli purulence surrounding the tooth. CT facial/sinus with IV contrast on 12/18 unfortunately was limited due to prior dental work. Blood cultures drawn on 12/16, no growth to date. Procalcitonin 0.26, only slightly above normal range. Per ID recs, started on p.o. Augmentin on 12/18 and will discuss if need for tooth to be pulled. Continue to monitor daily CBC and fever curve. 12/20/2023: Continue with Augmentin for several days prior to doing pacemaker placement. Appreciate IDs assistance 3. Hypertension ? Holding home amlodipine, hydrochlorothiazide, lisinopril and Toprol given cardiac issues as noted above. Chronic medical conditions: ? Type 2 diabetes mellitus: A1c 9.3% on admit. Continue treatment with sliding scale insulin with meals while inpatient. ? GERD: Continue home PPI. ? Hyperlipidemia: Continue home atorvastatin. DVT: Therapeutic Lovenox Charges/Coding Visit Charges Inpatient E&M: 29266 Subs Hosp L2
[2023-12-20] MEDS: Enoxaparin 60 MG/0.6 ML Syringe SC ×2 (09:39→22:02)
[2023-12-20 14:31] LABS: Bedside Glucose 335 mg/dL (74-106)
--- NOTE | 2023-12-20 15:31 | CASEMGMT ---
JOSE MARCH NOTE: JOSE CM to room. Introduced self and role. Pt sitting up in chair in room. Pt ambulated 50 ft w/WW w/therapy today CGA. Pt feels she will be safe to discharge home and feels she will be closer to her baseline by discharge re: strength. She is not sure if she will want/need any HHC @ dc and would like to wait to see how she does each day before deciding. JOSE MARCH to follow for any discharge needs/concerns. Alie COOPER RN CM
[2023-12-20 16:18] LABS: Bedside Glucose 276 mg/dL (74-106)
[2023-12-20] MEDS: Atorvastatin Calcium 20 MG Tablet PO (22:02)
[2023-12-21] VITALS (9 sets, daily range): BP systolic 140–159; BP diastolic 52–92; PULSE 56–75; RESP 15–18; TEMP 36.3–36.9; O2SAT 84–98; BMI 20.8
[2023-12-21 05:05] LABS: Absolute Lymphocyte Count 1.96 X10^3/uL (0.83-4.51); Basophil# 0.05 X10^3/uL; Basophil% 0.5 % (0-1); Eosinophil# 0.41 X10^3/uL; Eosinophils% 4.3 % (0-5); Hematocrit 36.4 % (37-47); Lymphocyte # 1.96 X10^3/ul (0.83-4.51); Lymphocyte % 20.7 % (19-41); Mean Corpuscular Hgb 30.7 pg (27.0-32.0); Mean Corpuscular Volume 93.1 fL (81-99); Mean Platelet Vol. 9.2 fl (6.2-12.0); Monocyte# 0.98 X10^3/uL; Monocyte% 10.4 % (0-10); NRBC Flagged by Analyzer 0 % (0-5); Neutrophil # 6.01 X10^3/uL (2.7-7.7); Neutrophil % 63.7 % (47-70); Platelet Count 205 K/mm3 (150-450); RBC Distribution Width CV 13.3 % (11.6-14.6); RBC Distribution Width SD 45.1 fl (35.1-43.9); Red Blood Count 3.91 M/mm3 (4.2-5.4); White Blood Count 9.5 K/mm3 (4.4-11.0)
[2023-12-21 05:20] LABS: Anion Gap 4 (5-15); BUN 22 mg/dL (7-18); BUN/Creat Ratio 27.3 RATIO (10-20); Calcium,Total 8.9 mg/dL (8.5-10.1); Chloride 104 mmol/L (98-107); EST Glomerular Filtration Rate 72 mL/min (>60); Est Glom Filt Rate - Afr Amer 87 mL/min (>60); Estimated Creatinine Clearance 41.76 ml/min; Glucose 231 mg/dL (74-106); Potassium 3.9 mmol/L (3.5-5.1); Sodium Level 139 mmol/L (136-145)
--- NOTE | 2023-12-21 08:09 | PN.HOSP_ITS ---
Subjective Subjective No issues and no change overnight Objective Data Objective Data Vital Signs: Vital Signs Temp Pulse Resp BP Pulse Ox O2 Del Method O2 Flow Rate 97.4 F L 65 18 140/92 H 96 Nasal Cannula 1 12/21/23 02:00 12/21/23 02:00 12/21/23 02:00 12/21/23 02:00 12/21/23 02:00 12/21/23 02:00 12/21/23 02:00 Oxygen Flow Rate (L/min) 1 Oxygen Delivery Method Nasal Cannula Weight: 117 lb 8.102 oz Body Mass Index (BMI) 20.8 Intake & Output: Intake and Output for Last 24 Hours 12/20/23 12/21/23 12/22/23 03:59 03:59 03:59 Intake Total 720 / 720 720 / 720 200 / 200 Output Total 600 / 600 Balance 120 / 120 720 / 720 200 / 200 Lab / Micro Data 12/21/23 04:50 12/21/23 04:50 Labs: Laboratory Results - last 24 hr 12/20/23 08:14: POC Glucose 242 H 12/20/23 11:24: POC Glucose 335 H 12/20/23 15:57: POC Glucose 276 H 12/21/23 04:50: WBC 9.5, RBC 3.91 L, Hgb 12.0, Hct 36.4 L, MCV 93.1, MCH 30.7, MCHC 33.0, RDW Std Deviation 45.1 H, RDW Coeff of Renita 13.3, Plt Count 205, MPV 9.2, Immature Gran % (Auto) 0.400, Neut % (Auto) 63.7, Lymph % (Auto) 20.7, [place] % (Auto) 10.4 H, Eos % (Auto) 4.3, Baso % (Auto) 0.5, Absolute Neuts (auto) 6.0, Absolute Lymphs (auto) 1.96, Nucleated RBC % 0, Sodium 139, Potassium 3.9, Chloride 104, Carbon Dioxide 31.0, Anion Gap 4 L, BUN 22 H, Creatinine 0.80, Estim Creat Clear Calc 41.76, Est GFR (MDRD) Af Amer 87, Est GFR (MDRD) Non-Af 72, BUN/Creatinine Ratio 27.3 H, Glucose 231 H, Calcium 8.9 Micro: Microbiology 12/17/23 15:45 Blood Culture (Wb) - Anticubital Right Blood Culture - Preliminary No growth in 48 hours. Rhythm Strip Rhythm Strip: A-fib Rate: 50 Ectopy: PVC(s) Physical Exam Narrative General: Alert, Oriented x3, Cooperative, No apparent distress HEENT: Atraumatic, PERRLA, EOMI, Normocephalic Oral: Moist Mucosa Neck: Supple, No JVD Lungs: Diminished, Normal air movement, No rhonchi, No wheeze, No rales Cardiovascular: Regular rate, irregular rhythm, Normal S1, Normal S2, No murmurs Abdomen: Soft, Non Tender, Non-Distended, No Hepato-splenomegaly Extremities: No edema, Capillary Refill Less than 3 Seconds Skin: No rashes, No breakdown Musculoskeletal: No Tenderness to Palpation of Joints or Extremities Neurological: No focal neurological deficits, Motor Exam 5/5 strength throughout, Sensory exam intact to light touch and pain Psych/Mental Status: Normal Affect, Appropriate Assessment & Plan Assessment/Plan (1) Syncope: QUALIFIERS: Syncope type: unspecified Qualified Code(s): R55 - Syncope and collapse (2) Atrial flutter: QUALIFIERS: Atrial flutter type: atypical Qualified Code(s): I 48.4 - Atypical atrial flutter (3) Pulmonary hypertension: (4) Tricuspid valve regurgitation: (5) Pulseless ventricular tachycardia: (6) Torsades de pointes: (7) Pleural effusion: PLAN: Plan 1. Syncopal episode, newly diagnosed slow A-fib/flutter, severe pulmonary hypertension with moderate RV dysfunction and TV regurgitation, episode of pulseless V. tach suspected due to torsades de pointes, small right-sided pleural effusion ? Cardiology following. Patient presented after syncopal episode at home with reported low blood pressure. On arrival to the ED, found to be in new slow A- fib/flutter. CTA chest showed no PE, small right pleural effusion, otherwise unremarkable. Echo 12/16 showed normal EF but severe pulmonary hypertension with PASP 88 mmHg, moderate RV dysfunction and 3+ tricuspid valve regurgitation. On 12/16, patient had a short pulseless V. tach arrest. See code documentation for further details. She regained a pulse quickly without need for defibrillation or other medications. On telemetry, appeared that patient went into Torsades. Per cardiology, suspect this is consistent with the syncopal episode she had at home. Suspect that rhythm issues are secondary to right heart changes secondary to pulmonary hypertension. Holding patient's home Toprol and other blood pressure medications. Planning for permanent pacemaker during this hospitalization; however, have concern for possible indolent infection as noted below and this will need to be ruled out prior to pacemaker placement. Patient moved up to ICU on 12/16. Stable on 12/17, and A-fib with rate around 60 and hemodynamically stable. Planning for pacemaker placement once infection has either been treated or ruled out has below. 12/20/2023: Plan for pacemaker placement on Sunday to complete multiple days of oral antibiotics 12/21/2023: Pacemaker on Sunday currently continue with antibiotics 2. Low-grade fevers with mild leukocytosis ? Infectious disease following. WBC count 14 on admit, has remained stable around 12-14. Patient with low-grade fevers up to 99.7F on day of admit. Unclear if patient has infection. UA unremarkable, CTA chest unremarkable, no abdominal pain or discomfort. Notably, patient reported right lower molar pain recently and on exam, some blackening of the tooth and decay noted though no erythema or eli purulence surrounding the tooth. CT facial/sinus with IV contrast on 12/18 unfortunately was limited due to prior dental work. Blood cultures drawn on 12/16, no growth to date. Procalcitonin 0.26, only slightly above normal range. Per ID recs, started on p.o. Augmentin on 12/18 and will discuss if need for tooth to be pulled. Continue to monitor daily CBC and fever curve. 12/20/2023: Continue with Augmentin for several days prior to doing pacemaker placement. Appreciate IDs assistance 3. Hypertension ? Holding home amlodipine, hydrochlorothiazide, lisinopril and Toprol given cardiac issues as noted above. Chronic medical conditions: ? Type 2 diabetes mellitus: A1c 9.3% on admit. Continue treatment with sliding scale insulin with meals while inpatient. ? GERD: Continue home PPI. ? Hyperlipidemia: Continue home atorvastatin. DVT: Therapeutic Lovenox Charges/Coding Visit Charges Inpatient E&M: 99725 [facility] L1
[2023-12-21] MEDS: Pantoprazole Sodium 40 MG Tablet PO (08:46)
[2023-12-21] MEDS: Insulin Lispro 100 UNIT/ML INSULN.PEN SC ×3 (08:46→16:33)
[2023-12-21] MEDS: Amox/Clavulanate 875 MG Tablet PO ×2 (08:46→16:33)
[2023-12-21] MEDS: Enoxaparin 60 MG/0.6 ML Syringe SC ×2 (08:46→21:25)
[2023-12-21] MEDS: Acetaminophen 325 MG Tablet 650 MG PO ×2 (08:52→18:28)
[2023-12-21 11:34] LABS: Bedside Glucose 392 mg/dL (74-106)
--- NOTE | 2023-12-21 12:42 | PCM.PN.ID ---
Physical Exam Narrative Feeling better, no fever, no tooth pain, no n/v/d. Const alert and no apparent distress General Appearance: cooperative HEENT HEENT Narrative: poor dentition Resp normal air movement and clear to auscultation bilaterally Cardio regular rate and regular rhythm GI soft to palpation, non-tender and non-distended Skin no rashes or lesions noted ID ID: Route of nutrition/ use of supplements: [] Nutritional Intake: [] IV Site: [] Dyer Catheter: [] Assessment & Plan Assessment/Plan (1) Leukocytosis: PLAN: Wbc up to 14 here, 12/18 started course of augmentin for suspected infected tooth in R mandible. Ok for pacer placement as planned on Sunday. Wbc now normal. Plan on 10 days total augmentin with dentistry followup. Will follow
[2023-12-21 16:49] LABS: Bedside Glucose 285 mg/dL (74-106)
[2023-12-21] MEDS: Atorvastatin Calcium 20 MG Tablet PO (21:25)
[2023-12-21] MEDS: 0.9% Saline Lock 10 ML Syringe IV (21:27)
[2023-12-22] VITALS (7 sets, daily range): BP systolic 131–163; BP diastolic 62–67; PULSE 52–71; RESP 18–19; TEMP 36.6–36.9; O2SAT 92–97; BMI 21.2
[2023-12-22 00:27] LABS: Bedside Glucose 242 mg/dL (74-106)
[2023-12-22] MEDS: Insulin Lispro 100 UNIT/ML INSULN.PEN SC ×3 (08:06→17:09)
[2023-12-22] MEDS: Enoxaparin 60 MG/0.6 ML Syringe SC ×2 (08:07→21:33)
[2023-12-22] MEDS: Pantoprazole Sodium 40 MG Tablet PO (08:08)
[2023-12-22] MEDS: Amox/Clavulanate 875 MG Tablet PO ×2 (08:08→17:10)
[2023-12-22 08:26] LABS: Bedside Glucose 289 mg/dL (74-106)
--- NOTE | 2023-12-22 08:38 | PN.HOSP_ITS ---
Subjective Subjective No change, stable Objective Data Objective Data Vital Signs: Vital Signs Temp Pulse Resp BP Pulse Ox O2 Del Method O2 Flow Rate 98.4 F 71 18 131/67 H 96 Room Air 1 12/22/23 02:20 12/22/23 06:00 12/22/23 02:20 12/22/23 02:20 12/22/23 02:20 12/22/23 02:20 12/21/23 09:34 Oxygen Flow Rate (L/min) 1 Oxygen Delivery Method Room Air Weight: 119 lb 11.376 oz Body Mass Index (BMI) 21.2 Intake & Output: Intake and Output for Last 24 Hours 12/21/23 12/22/23 12/23/23 03:59 03:59 03:59 Intake Total 720 / 720 1060 / 1060 100 / 100 Output Total 150 / 150 150 / 150 Balance 720 / 720 910 / 910 -50 / -50 Lab / Micro Data 12/21/23 04:50 12/21/23 04:50 Labs: Laboratory Results - last 24 hr 12/21/23 08:45: POC Glucose 242 H 12/21/23 11:16: POC Glucose 392 H 12/21/23 16:32: POC Glucose 285 H 12/22/23 08:05: POC Glucose 289 H Micro: Microbiology 12/17/23 15:45 Blood Culture (Wb) - Anticubital Right Blood Culture - Preliminary No growth in 48 hours. Rhythm Strip Rhythm Strip: A-fib Rate: 50 Ectopy: PVC(s) Physical Exam Narrative General: Alert, Oriented x3, Cooperative, No apparent distress HEENT: Atraumatic, PERRLA, EOMI, Normocephalic Oral: Moist Mucosa Neck: Supple, No JVD Lungs: Diminished, Normal air movement, No rhonchi, No wheeze, No rales Cardiovascular: Regular rate, irregular rhythm, Normal S1, Normal S2, No murmurs Abdomen: Soft, Non Tender, Non-Distended, No Hepato-splenomegaly Extremities: No edema, Capillary Refill Less than 3 Seconds Skin: No rashes, No breakdown Musculoskeletal: No Tenderness to Palpation of Joints or Extremities Neurological: No focal neurological deficits, Motor Exam 5/5 strength throughout, Sensory exam intact to light touch and pain Psych/Mental Status: Normal Affect, Appropriate Assessment & Plan Assessment/Plan (1) Syncope: QUALIFIERS: Syncope type: unspecified Qualified Code(s): R55 - Syncope and collapse (2) Atrial flutter: QUALIFIERS: Atrial flutter type: atypical Qualified Code(s): I 48.4 - Atypical atrial flutter (3) Pulmonary hypertension: (4) Tricuspid valve regurgitation: (5) Pulseless ventricular tachycardia: (6) Torsades de pointes: (7) Pleural effusion: PLAN: Plan 1. Syncopal episode, newly diagnosed slow A-fib/flutter, severe pulmonary hypertension with moderate RV dysfunction and TV regurgitation, episode of pulseless V. tach suspected due to torsades de pointes, small right-sided pleural effusion ? Cardiology following. Patient presented after syncopal episode at home with reported low blood pressure. On arrival to the ED, found to be in new slow A- fib/flutter. CTA chest showed no PE, small right pleural effusion, otherwise unremarkable. Echo 12/16 showed normal EF but severe pulmonary hypertension with PASP 88 mmHg, moderate RV dysfunction and 3+ tricuspid valve regurgitation. On 12/16, patient had a short pulseless V. tach arrest. See code documentation for further details. She regained a pulse quickly without need for defibrillation or other medications. On telemetry, appeared that patient went into Torsades. Per cardiology, suspect this is consistent with the syncopal episode she had at home. Suspect that rhythm issues are secondary to right heart changes secondary to pulmonary hypertension. Holding patient's home Toprol and other blood pressure medications. Planning for permanent pacemaker during this hospitalization; however, have concern for possible indolent infection as noted below and this will need to be ruled out prior to pacemaker placement. Patient moved up to ICU on 12/16. Stable on 12/17, and A-fib with rate around 60 and hemodynamically stable. Planning for pacemaker placement once infection has either been treated or ruled out has below. 12/20/2023: Plan for pacemaker placement on Sunday to complete multiple days of oral antibiotics 12/21/2023: Pacemaker on Sunday currently continue with antibiotics 12/22/2023: No new issues 2. Low-grade fevers with mild leukocytosis ? Infectious disease following. WBC count 14 on admit, has remained stable around 12-14. Patient with low-grade fevers up to 99.7F on day of admit. Unclear if patient has infection. UA unremarkable, CTA chest unremarkable, no abdominal pain or discomfort. Notably, patient reported right lower molar pain recently and on exam, some blackening of the tooth and decay noted though no erythema or eli purulence surrounding the tooth. CT facial/sinus with IV contrast on 12/18 unfortunately was limited due to prior dental work. Blood cultures drawn on 12/16, no growth to date. Procalcitonin 0.26, only slightly above normal range. Per ID recs, started on p.o. Augmentin on 12/18 and will discuss if need for tooth to be pulled. Continue to monitor daily CBC and fever curve. 12/20/2023: Continue with Augmentin for several days prior to doing pacemaker placement. Appreciate IDs assistance 3. Hypertension ? Holding home amlodipine, hydrochlorothiazide, lisinopril and Toprol given cardiac issues as noted above. Chronic medical conditions: ? Type 2 diabetes mellitus: A1c 9.3% on admit. Continue treatment with sliding scale insulin with meals while inpatient. ? GERD: Continue home PPI. ? Hyperlipidemia: Continue home atorvastatin. DVT: Therapeutic Lovenox Charges/Coding Visit Charges Inpatient E&M: 93369 [facility] H[facility] L1
[2023-12-22] MEDS: Acetaminophen 325 MG Tablet 650 MG PO ×2 (11:53→21:39)
[2023-12-22 17:24] LABS: Bedside Glucose 243 mg/dL (74-106)
[2023-12-22] MEDS: Atorvastatin Calcium 20 MG Tablet PO (21:33)
[2023-12-23 04:15] VITALS: BP 158/68; PULSE 58; RESP 18; TEMP 36.4; O2SAT 96
[2023-12-23 05:33] LABS: Anion Gap 5 (5-15); BUN 22 mg/dL (7-18); BUN/Creat Ratio 29.6 RATIO (10-20); Calcium,Total 8.7 mg/dL (8.5-10.1); Chloride 105 mmol/L (98-107); Creatinine, Serum 0.74 mg/dL (0.55-1.02); EST Glomerular Filtration Rate 79 mL/min (>60); Est Glom Filt Rate - Afr Amer 95 mL/min (>60); Estimated Creatinine Clearance 41.76 ml/min; Glucose 247 mg/dL (74-106); Potassium 3.6 mmol/L (3.5-5.1); Sodium Level 140 mmol/L (136-145)
[2023-12-23 05:59] VITALS: BMI 23.1
[2023-12-23] MEDS: Insulin Lispro 100 UNIT/ML INSULN.PEN SC ×3 (06:27→16:22)
[2023-12-23 06:48] LABS: Bedside Glucose 227 mg/dL (74-106)
[2023-12-23 07:10] VITALS: O2SAT 93
[2023-12-23 08:06] LABS: Bedside Glucose 307 mg/dL (74-106)
--- NOTE | 2023-12-23 08:34 | PN.HOSP_ITS ---
Subjective Subjective No issues overnight, awaiting pacemaker placement Objective Data Objective Data Vital Signs: Vital Signs Temp Pulse Resp BP Pulse Ox O2 Del Method O2 Flow Rate 97.5 F L 58 L 18 158/68 H 96 Room Air 1 12/23/23 04:15 12/23/23 04:15 12/23/23 04:15 12/23/23 04:15 12/23/23 04:15 12/23/23 04:15 12/21/23 09:34 Oxygen Flow Rate (L/min) 1 Oxygen Delivery Method Room Air Weight: 130 lb 8.218 oz Body Mass Index (BMI) 23.1 Intake & Output: Intake and Output for Last 24 Hours 12/22/23 12/23/23 12/24/23 03:59 03:59 03:59 Intake Total 1060 / 1060 700 / 700 200 / 200 Output Total 150 / 150 151 / 151 Balance 910 / 910 549 / 549 200 / 200 Lab / Micro Data 12/21/23 04:50 12/23/23 04:35 Labs: Laboratory Results - last 24 hr 12/22/23 11:26: POC Glucose 307 H 12/22/23 17:06: POC Glucose 243 H 12/23/23 04:35: Sodium 140, Potassium 3.6, Chloride 105, Carbon Dioxide 30.0, Anion Gap 5, BUN 22 H, Creatinine 0.74, Estim Creat Clear Calc 41.76, Est GFR (MDRD) Af Amer 95, Est GFR (MDRD) Non-Af 79, BUN/Creatinine Ratio 29.6 H, G lucose 247 H, Calcium 8.7 12/23/23 06:25: POC Glucose 227 H Micro: Microbiology 12/17/23 15:45 Blood Culture (Wb) - Anticubital Right Blood Culture - Final No growth in 5 days. Rhythm Strip Rhythm Strip: A-fib Rate: 50 Ectopy: PVC(s) Physical Exam Narrative General: Alert, Oriented x3, Cooperative, No apparent distress HEENT: Atraumatic, PERRLA, EOMI, Normocephalic Oral: Moist Mucosa Neck: Supple, No JVD Lungs: Diminished, Normal air movement, No rhonchi, No wheeze, No rales Cardiovascular: Regular rate, irregular rhythm, Normal S1, Normal S2, No murmurs Abdomen: Soft, Non Tender, Non-Distended, No Hepato-splenomegaly Extremities: No edema, Capillary Refill Less than 3 Seconds Skin: No rashes, No breakdown Musculoskeletal: No Tenderness to Palpation of Joints or Extremities Neurological: No focal neurological deficits, Motor Exam 5/5 strength throughout, Sensory exam intact to light touch and pain Psych/Mental Status: Normal Affect, Appropriate Assessment & Plan Assessment/Plan (1) Syncope: QUALIFIERS: Syncope type: unspecified Qualified Code(s): R55 - Syncope and collapse (2) Atrial flutter: QUALIFIERS: Atrial flutter type: atypical Qualified Code(s): I 48.4 - Atypical atrial flutter (3) Pulmonary hypertension: (4) Tricuspid valve regurgitation: (5) Pulseless ventricular tachycardia: (6) Torsades de pointes: (7) Pleural effusion: PLAN: Plan 1. Syncopal episode, newly diagnosed slow A-fib/flutter, severe pulmonary hypertension with moderate RV dysfunction and TV regurgitation, episode of pulseless V. tach suspected due to torsades de pointes, small right-sided pleural effusion ? Cardiology following. Patient presented after syncopal episode at home with reported low blood pressure. On arrival to the ED, found to be in new slow A- fib/flutter. CTA chest showed no PE, small right pleural effusion, otherwise unremarkable. Echo 12/16 showed normal EF but severe pulmonary hypertension with PASP 88 mmHg, moderate RV dysfunction and 3+ tricuspid valve regurgitation. On 12/16, patient had a short pulseless V. tach arrest. See code documentation for further details. She regained a pulse quickly without need for defibrillation or other medications. On telemetry, appeared that patient went into Torsades. Per cardiology, suspect this is consistent with the syncopal episode she had at home. Suspect that rhythm issues are secondary to right heart changes secondary to pulmonary hypertension. Holding patient's home Toprol and other blood pressure medications. Planning for permanent pacemaker during this hospitalization; however, have concern for possible indolent infection as noted below and this will need to be ruled out prior to pacemaker placement. Patient moved up to ICU on 12/16. Stable on 12/17, and A-fib with rate around 60 and hemodynamically stable. Planning for pacemaker placement once infection has either been treated or ruled out has below. 12/20/2023: Plan for pacemaker placement on Sunday to complete multiple days of oral antibiotics 12/21/2023: Pacemaker on Sunday currently continue with antibiotics 12/22/2023: No new issues 12/23/2023: Awaiting pacemaker placement 2. Low-grade fevers with mild leukocytosis ? Infectious disease following. WBC count 14 on admit, has remained stable around 12-14. Patient with low-grade fevers up to 99.7F on day of admit. Unclear if patient has infection. UA unremarkable, CTA chest unremarkable, no abdominal pain or discomfort. Notably, patient reported right lower molar pain recently and on exam, some blackening of the tooth and decay noted though no erythema or eli purulence surrounding the tooth. CT facial/sinus with IV contrast on 12/18 unfortunately was limited due to prior dental work. Blood cultures drawn on 12/16, no growth to date. Procalcitonin 0.26, only slightly above normal range. Per ID recs, started on p.o. Augmentin on 12/18 and will discuss if need for tooth to be pulled. Continue to monitor daily CBC and fever curve. 12/20/2023: Continue with Augmentin for several days prior to doing pacemaker placement. Appreciate IDs assistance 3. Hypertension ? Holding home amlodipine, hydrochlorothiazide, lisinopril and Toprol given cardiac issues as noted above. Chronic medical conditions: ? Type 2 diabetes mellitus: A1c 9.3% on admit. Continue treatment with sliding scale insulin with meals while inpatient. ? GERD: Continue home PPI. ? Hyperlipidemia: Continue home atorvastatin. DVT: Therapeutic Lovenox Charges/Coding Visit Charges Inpatient E&M: [id number] [facility] L1
[2023-12-23] MEDS: Amox/Clavulanate 875 MG Tablet PO ×2 (08:39→16:23)
[2023-12-23] MEDS: Pantoprazole Sodium 40 MG Tablet PO (08:40)
[2023-12-23] MEDS: Enoxaparin 60 MG/0.6 ML Syringe SC (08:40)
[2023-12-23 10:15] VITALS: BP 141/53; PULSE 51; RESP 16; TEMP 36.9; O2SAT 98
[2023-12-23] MEDS: Acetaminophen 325 MG Tablet 650 MG PO ×2 (11:59→21:05)
[2023-12-23 12:20] LABS: Bedside Glucose 222 mg/dL (74-106)
[2023-12-23 16:42] LABS: Bedside Glucose 241 mg/dL (74-106)
[2023-12-23 21:04] VITALS: BP 154/71; PULSE 56; RESP 17; TEMP 36.1; O2SAT 97
[2023-12-23] MEDS: Atorvastatin Calcium 20 MG Tablet PO (21:05)
[2023-12-23] MEDS: 0.9% Saline Lock 10 ML Syringe IV (21:06)
[2023-12-24] VITALS (13 sets, daily range): BP systolic 113–176; BP diastolic 52–93; PULSE 50–67; RESP 16–18; TEMP 36.1–36.8; O2SAT 93–100; BMI 24.4
--- NOTE | 2023-12-24 05:00 | EKG12_ITS ---
Test Reason : Blood Pressure : / mmHG Vent. Rate : 053 BPM Atrial Rate : 000 BPM P-R Int : 000 ms QRS Dur : 128 ms QT Int : 490 ms P-R-T Axes : 000 128 -85 degrees QTc Int : 459 ms Atrial fibrillation with slow ventricular response with premature ventricular or aberrantly conducted complexes Right bundle branch block Left posterior fascicular block Bifascicular block Possible Inferior infarct , age undetermined T wave abnormality, consider lateral ischemia Confirmed by MALU MURILLO, WILLIAM ([id number]), technical writer and editor RAPHAEL BARBER ([id number]) on 12/24/2023 2:15:51 PM Referred By: Confirmed By:WILLIAM TORIBIO MD
[2023-12-24 05:40] LABS: Absolute Lymphocyte Count 1.95 X10^3/uL (0.83-4.51); Absolute Neutrophil Count 6.3 X10^3/uL (2.0-7.7); Basophil# 0.04 X10^3/uL; Basophil% 0.4 % (0-1); Eosinophil# 0.31 X10^3/uL; Eosinophils% 3.2 % (0-5); Hematocrit 35.8 % (37-47); Hemoglobin 11.9 g/dL (12.0-15.0); Lymphocyte # 1.95 X10^3/ul (0.83-4.51); Lymphocyte % 20.2 % (19-41); Mean Corp Hgb Conc 33.2 g/dL (32-36); Mean Corpuscular Hgb 31.2 pg (27.0-32.0); Mean Corpuscular Volume 93.7 fL (81-99); Mean Platelet Vol. 8.9 fl (6.2-12.0); Monocyte# 1.08 X10^3/uL; Monocyte% 11.2 % (0-10); NRBC Flagged by Analyzer 0 % (0-5); Neutrophil # 6.25 X10^3/uL (2.7-7.7); Neutrophil % 64.6 % (47-70); Platelet Count 236 K/mm3 (150-450); RBC Distribution Width CV 13.4 % (11.6-14.6); RBC Distribution Width SD 45.3 fl (35.1-43.9); Red Blood Count 3.82 M/mm3 (4.2-5.4); White Blood Count 9.7 K/mm3 (4.4-11.0)
[2023-12-24 05:49] LABS: International Normalized Ratio 1.1; Prothrombin Time (Protime)PT. 14.4 SECONDS (11.7-14.9)
[2023-12-24 05:50] LABS: Partial Thromboplast Time 29.9 Seconds (24.1-36.2)
[2023-12-24 06:05] LABS: ALB/GLOB Ratio 0.7 RATIO (0.9-2.4); AST(SGOT) 60 U/L (15-37); Alanine Aminotransfer ALT/SGPT 68 U/L (13-56); Albumin, Serum 2.6 g/dL (3.2-5.0); Alkaline Phosphatase 92 U/L (45-117); Anion Gap 4 (5-15); BUN 20 mg/dL (7-18); BUN/Creat Ratio 28.9 RATIO (10-20); Chloride 106 mmol/L (98-107); Creatinine, Serum 0.69 mg/dL (0.55-1.02); EST Glomerular Filtration Rate 85 mL/min (>60); Est Glom Filt Rate - Afr Amer 103 mL/min (>60); Estimated Creatinine Clearance 41.76 ml/min; Globulin 3.5 g/dL (2.2-4.2); Glucose 231 mg/dL (74-106); Potassium 4.2 mmol/L (3.5-5.1); Protein, Total 6.1 g/dL (6.4-8.2); Sodium Level 139 mmol/L (136-145)
[2023-12-24 06:57] LABS: Bedside Glucose 206 mg/dL (74-106)
[2023-12-24] MEDS: 0.9% Normal Saline (1000mL) 1,000 ML 15 ML IV (08:18)
--- NOTE | 2023-12-24 10:09 | PN.HOSP_ITS ---
Subjective Subjective Doing well, no issues overnight Objective Data Objective Data Vital Signs: Vital Signs Temp Pulse Resp BP Pulse Ox O2 Del Method O2 Flow Rate 97.3 F L 58 L 18 159/60 H 96 Room Air 1 12/24/23 07:55 12/24/23 07:55 12/24/23 07:55 12/24/23 07:55 12/24/23 07:55 12/24/23 07:55 12/21/23 09:34 Oxygen Flow Rate (L/min) 1 Oxygen Delivery Method Room Air Weight: 138 lb 0.15 oz Body Mass Index (BMI) 24.4 Intake & Output: Intake and Output for Last 24 Hours 12/23/23 12/24/23 12/25/23 03:59 03:59 03:59 Intake Total 700 / 700 200 / 200 Output Total 151 / 151 Balance 549 / 549 200 / 200 Lab / Micro Data 12/24/23 05:10 12/24/23 05:10 Labs: Laboratory Results - last 24 hr 12/23/23 11:46: POC Glucose 222 H 12/23/23 16:22: POC Glucose 241 H 12/24/23 05:10: WBC 9.7, RBC 3.82 L, Hgb 11.9 L, Hct 35.8 L, MCV 93.7, MCH 31.2, MCHC 33.2, RDW Std Deviation 45.3 H, RDW Coeff of Renita 13.4, Plt Count 236, MPV 8.9, Immature Gran % (Auto) 0.400, Neut % (Auto) 64.6, Lymph % (Auto) 20.2, [place] % (Auto) 11.2 H, Eos % (Auto) 3.2, Baso % (Auto) 0.4, Absolute Neuts (auto) 6.3, Absolute Lymphs (auto) 1.95, Nucleated RBC % 0, PT 14.4, INR 1.1, APTT 29.9, Sodium 139, Potassium 4.2, Chloride 106, Carbon Dioxide 29.0, Anion Gap 4 L, BUN 20 H, Creatinine 0.69, Estim Creat Clear Calc 41.76, Est GFR (MDRD) Af Amer 103, Est GFR (MDRD) Non-Af 85, BUN/Creatinine Ratio 28.9 H, Glucose 231 H, Calcium 9.0, Total Bilirubin 0.80, AST 60 H, ALT 68 H, Alkaline Phosphatase 92, Total Protein 6.1 L, Albumin 2.6 L, Globulin 3.5, Albumin/Globulin Ratio 0.7 L 12/24/23 06:29: POC Glucose 206 H Micro: Microbiology 12/17/23 15:45 Blood Culture (Wb) - Anticubital Right Blood Culture - Final No growth in 5 days. Rhythm Strip Rhythm Strip: A-fib Rate: 50 Ectopy: PVC(s) Physical Exam Narrative General: Alert, Oriented x3, Cooperative, No apparent distress HEENT: Atraumatic, PERRLA, EOMI, Normocephalic Oral: Moist Mucosa Neck: Supple, No JVD Lungs: Diminished, Normal air movement, No rhonchi, No wheeze, No rales Cardiovascular: Regular rate, irregular rhythm, Normal S1, Normal S2, No murmurs Abdomen: Soft, Non Tender, Non-Distended, No Hepato-splenomegaly Extremities: No edema, Capillary Refill Less than 3 Seconds Skin: No rashes, No breakdown Musculoskeletal: No Tenderness to Palpation of Joints or Extremities Neurological: No focal neurological deficits, Motor Exam 5/5 strength throughout, Sensory exam intact to light touch and pain Psych/Mental Status: Normal Affect, Appropriate Assessment & Plan Assessment/Plan (1) Syncope: QUALIFIERS: Syncope type: unspecified Qualified Code(s): R55 - Syncope and collapse (2) Atrial flutter: QUALIFIERS: Atrial flutter type: atypical Qualified Code(s): I 48.4 - Atypical atrial flutter (3) Torsades de pointes: (4) Pleural effusion: PLAN: Plan 1. Syncopal episode, newly diagnosed slow A-fib/flutter, severe pulmonary hypertension with moderate RV dysfunction and TV regurgitation, torsades de pointes, small right-sided pleural effusion ? Cardiology following. Patient presented after syncopal episode at home with reported low blood pressure. On arrival to the ED, found to be in new slow A- fib/flutter. CTA chest showed no PE, small right pleural effusion, otherwise unremarkable. Echo 12/16 showed normal EF but severe pulmonary hypertension with PASP 88 mmHg, moderate RV dysfunction and 3+ tricuspid valve regurgitation. On 12/16, patient had a short pulseless V. tach arrest. See code documentation for further details. She regained a pulse quickly without need for defibrillation or other medications. On telemetry, appeared that patient went into Torsades. Per cardiology, suspect this is consistent with the syncopal episode she had at home. Suspect that rhythm issues are secondary to right heart changes secondary to pulmonary hypertension. Holding patient's home Toprol and other blood pressure medications. Planning for permanent pacemaker during this hospitalization; however, have concern for possible indolent infection as noted below and this will need to be ruled out prior to pacemaker placement. Patient moved up to ICU on 12/16. Stable on 12/17, and A-fib with rate around 60 and hemodynamically stable. Planning for pacemaker placement once infection has either been treated or ruled out has below. 12/20/2023: Plan for pacemaker placement on Sunday to complete multiple days of oral antibiotics 12/21/2023: Pacemaker on Sunday currently continue with antibiotics 12/22/2023: No new issues 12/23/2023: Awaiting pacemaker placement 12/24/2023: Awaiting pacemaker placement today 2. Low-grade fevers with mild leukocytosis ? Infectious disease following. WBC count 14 on admit, has remained stable around 12-14. Patient with low-grade fevers up to 99.7F on day of admit. Unclear if patient has infection. UA unremarkable, CTA chest unremarkable, no abdominal pain or discomfort. Notably, patient reported right lower molar pain recently and on exam, some blackening of the tooth and decay noted though no erythema or eli purulence surrounding the tooth. CT facial/sinus with IV contrast on 12/18 unfortunately was limited due to prior dental work. Blood cultures drawn on 12/16, no growth to date. Procalcitonin 0.26, only slightly above normal range. Per ID recs, started on p.o. Augmentin on 12/18 and will discuss if need for tooth to be pulled. Continue to monitor daily CBC and fever curve. 12/20/2023: Continue with Augmentin for several days prior to doing pacemaker placement. Appreciate IDs assistance 3. Hypertension ? Holding home amlodipine, hydrochlorothiazide, lisinopril and Toprol given cardiac issues as noted above. Chronic medical conditions: ? Type 2 diabetes mellitus: A1c 9.3% on admit. Continue treatment with sliding scale insulin with meals while inpatient. ? GERD: Continue home PPI. ? Hyperlipidemia: Continue home atorvastatin. DVT: Therapeutic Lovenox Charges/Coding Visit Charges Inpatient E&M: 64051 Subs Hosp L2
[2023-12-24 10:35] LABS: Absolute Lymphocyte Count 1.52 X10^3/uL (0.83-4.51); Absolute Neutrophil Count 7.8 X10^3/uL (2.0-7.7); Basophil# 0.06 X10^3/uL; Basophil% 0.6 % (0-1); Eosinophil# 0.21 X10^3/uL; Hematocrit 39.1 % (37-47); Hemoglobin 12.7 g/dL (12.0-15.0); Lymphocyte # 1.52 X10^3/ul (0.83-4.51); Lymphocyte % 14.4 % (19-41); Mean Corp Hgb Conc 32.5 g/dL (32-36); Mean Corpuscular Hgb 30.4 pg (27.0-32.0); Mean Corpuscular Volume 93.5 fL (81-99); Mean Platelet Vol. 8.8 fl (6.2-12.0); Monocyte# 0.91 X10^3/uL; Monocyte% 8.6 % (0-10); NRBC Flagged by Analyzer 0 % (0-5); Neutrophil # 7.83 X10^3/uL (2.7-7.7); Neutrophil % 73.8 % (47-70); Platelet Count 264 K/mm3 (150-450); RBC Distribution Width CV 13.5 % (11.6-14.6); RBC Distribution Width SD 46.1 fl (35.1-43.9); Red Blood Count 4.18 M/mm3 (4.2-5.4); White Blood Count 10.6 K/mm3 (4.4-11.0)
--- NOTE | 2023-12-24 12:40 | NURSING ---
Patient left unit to labor economist for pacer
--- NOTE | 2023-12-24 14:26 | PN.CARD_ITS ---
Subjective Subjective Patient seen and evaluated. Doing well Objective Data Vital Signs: Vital Signs Temp Pulse Resp BP Pulse Ox O2 Del Method O2 Flow Rate 97.3 F L 58 L 18 159/60 H 96 Room Air 1 12/24/23 07:55 12/24/23 07:55 12/24/23 07:55 12/24/23 07:55 12/24/23 07:55 12/24/23 07:55 12/21/23 09:34 Oxygen Flow Rate (L/min) 1 Oxygen Delivery Method Room Air Weight: 138 lb 0.15 oz Body Mass Index (BMI) 24.4 Intake & Output: Intake and Output for Last 24 Hours 12/22/23 12/23/23 12/24/23 23:59 23:59 23:59 Intake Total 1060 / 1060 200 / 200 Output Total 300 / 301 Balance 760 / 759 199 / 199 Lab / Micro Data 12/24/23 10:25 12/24/23 05:10 Labs: Laboratory Results - last 24 hr 12/23/23 16:22: POC Glucose 241 H 12/24/23 05:10: WBC 9.7, RBC 3.82 L, Hgb 11.9 L, Hct 35.8 L, MCV 93.7, MCH 31.2, MCHC 33.2, RDW Std Deviation 45.3 H, RDW Coeff of Renita 13.4, Plt Count 236, MPV 8.9, Immature Gran % (Auto) 0.400, Neut % (Auto) 64.6, Lymph % (Auto) 20.2, [place] % (Auto) 11.2 H, Eos % (Auto) 3.2, Baso % (Auto) 0.4, Absolute Neuts (auto) 6.3, Absolute Lymphs (auto) 1.95, Nucleated RBC % 0, PT 14.4, INR 1.1, APTT 29.9, Sodium 139, Potassium 4.2, Chloride 106, Carbon Dioxide 29.0, Anion Gap 4 L, BUN 20 H, Creatinine 0.69, Estim Creat Clear Calc 41.76, Est GFR (MDRD) Af Amer 103, Est GFR (MDRD) Non-Af 85, BUN/Creatinine Ratio 28.9 H, Glucose 231 H, Calcium 9.0, Total Bilirubin 0.80, AST 60 H, ALT 68 H, Alkaline Phosphatase 92, Total Protein 6.1 L, Albumin 2.6 L, Globulin 3.5, Albumin/Globulin Ratio 0.7 L 12/24/23 06:29: POC Glucose 206 H 12/24/23 10:25: WBC 10.6, RBC 4.18 L, Hgb 12.7, Hct 39.1, MCV 93.5, MCH 30.4, MCHC 32.5, RDW Std Deviation 46.1 H, RDW Coeff of Renita 13.5, Plt Count 264, MPV 8.8, Immature Gran % (Auto) 0.600, Neut % (Auto) 73.8 H, Lymph % (Auto) 14.4 L, [place] % (Auto) 8.6, Eos % (Auto) 2.0, Baso % (Auto) 0.6, Absolute Neuts (auto) 7.8 H, Absolute Lymphs (auto) 1.52, Nucleated RBC % 0 Rhythm Strip Rhythm Strip: A-fib Rate: 50 Ectopy: PVC(s) Cardiology Labs/Tests 12/24/23 05:10: WBC 9.7, RBC 3.82 L, Hgb 11.9 L, Hct 35.8 L, MCV 93.7, MCH 31.2, MCHC 33.2, Plt Count 236, MPV 8.9, Immature Gran % (Auto) 0.400, Neut % (Auto) 64.6, Lymph % (Auto) 20.2, [place] % (Auto) 11.2 H, Eos % (Auto) 3.2, Baso % (Auto) 0.4, Absolute Neuts (auto) 6.3, Nucleated RBC % 0, PT 14.4, INR 1.1, APTT 29.9, Sodium 139, Potassium 4.2, Chloride 106, Carbon Dioxide 29.0, Anion Gap 4 L, BUN 20 H, Creatinine 0.69, Est GFR (MDRD) Af Amer 103, Est GFR (MDRD) Non-Af 85, B UN/Creatinine Ratio 28.9 H, Glucose 231 H, Calcium 9.0, Total Bilirubin 0.80 12/24/23 10:25: WBC 10.6, RBC 4.18 L, Hgb 12.7, Hct 39.1, MCV 93.5, MCH 30.4, MCHC 32.5, Plt Count 264, MPV 8.8, Immature Gran % (Auto) 0.600, Neut % (Auto) 73.8 H, Lymph % (Auto) 14.4 L, [place] % (Auto) 8.6, Eos % (Auto) 2.0, Baso % (Auto) 0.6, Absolute Neuts (auto) 7.8 H, Nucleated RBC % 0 Rhythm: EKG: ECHO: Stress Test: Cardiac Cath: PCI: CT Surgery: Holter monitor: EPS: PPM: CXR: Chest CT Scan: Physical Exam Const alert and oriented x3 HEENT normocephalic Neck no JVD Chest inspection of chest normal Resp normal respiratory effort and clear to auscultation bilaterally Cardio Rate: bradycardia Rhythm: abnormal rhythm irregularly irregular Heart Sounds: S1 normal and S2 normal; Negative for click, gallop or murmur Extremity no pedal edema Neuro Neuro Narrative: Alert and oriented x 3 Psych mental status grossly normal Assessment & Plan Assessment/Plan (1) Paroxysmal atrial fibrillation: PLAN: The patient remains in atrial fibrillation with a slow ventricular response in the 50 to 60 bpm range that slows into the 35 to 45 bpm range with sleep. Patient underwent placement of a single-chamber pacemaker today. The plan will be to check chest x-ray and pacer check in AM. (2) Torsades de pointes: PLAN: The patient's had no recurrence of her torsades since her heart rate has increased into the 50 to 60 bpm range primarily. She does need to be monitored on telemetry until we can get the permanent pacemaker implanted. (3) HTN (hypertension): QUALIFIERS: Hypertension type: primary hypertension Qualified Code(s): I10 - Essential (primary) hypertension PLAN: The patient's blood pressure has been adequate controlled on her current meds. Once the pacemaker is implanted she will need to be reevaluated for addition of beta-loc therapy to her medical regimen.
--- NOTE | 2023-12-24 14:40 | NURSING ---
Patient returned to PCU
--- NOTE | 2023-12-24 14:54 | CASEMGMT ---
Social Work SW spoke w/pt, pt's daughter Lavinia, son Deshawn, and additional family in the room in regard to discharge plan. Pt had a pacemaker placed today and family is thinking pt may need SNF for a short time to gain strength. SW provided to daughter a list from [facility] of half-way facilities in network w/insurance, in pt's preferred geographic area, and complete w/quality and resource use data. Family will review list and let SW know choices tomorrow. They would prefer pt to stay in [place]. SW explained once SW knows places they would like to try, SW will send referrals. SW did also review the Medicare SNF benefit w/family. SW will follow up Sunday for choices w/family. MICK Garza
[2023-12-24] MEDS: Pantoprazole Sodium 40 MG Tablet PO (15:04)
[2023-12-24] MEDS: Amox/Clavulanate 875 MG Tablet PO (15:05)
[2023-12-24 15:12] LABS: Bedside Glucose 234 mg/dL (74-106)
[2023-12-24] MEDS: Insulin Lispro 100 UNIT/ML INSULN.PEN SC (16:56)
[2023-12-24 17:27] LABS: Bedside Glucose 212 mg/dL (74-106)
[2023-12-24] MEDS: Atorvastatin Calcium 20 MG Tablet PO (21:01)
[2023-12-24] MEDS: Acetaminophen 325 MG Tablet 650 MG PO (21:07)
[2023-12-24 22:56] LABS: Bedside Glucose 211 mg/dL (74-106)
[2023-12-25 02:53] VITALS: BP 157/64; PULSE 56; RESP 18; TEMP 36.3; O2SAT 95
[2023-12-25 05:05] VITALS: BMI 28.5
--- NOTE | 2023-12-25 05:28 | NURSING ---
Bladder scanned 569cc urine, pt unable to get out of bed due to bed rest status for pacemaker placement yesterday and states she usually gets up to the bathroom, MD notified and ordered urinary cornelius catheter placement, pt refused cornelius for now and would rather do voiding trials. This RN assisted pt on bedpan and pt was able to urinate ~300cc, and post void scan showed 260cc left. notified about pt decision. Pt placed on purewick until cardiology clears pt to ambulate, pt agreeable.
--- NOTE | 2023-12-25 05:55 | RAD_ITS ---
INDICATION: Post permanant ICD/Pacemaker -- inspiration/expiration. Arms Down. Wet read to EXAMINATION/TECHNIQUE: X-RAY - XR Chest 3 Views COMPARISON: Prior study dated: CT 12/16/2023 FINDINGS: LINES/DEVICES: Left chest wall pacer. Lead overlying the right ventricle. LUNGS: The lungs are well expanded. No consolidation, edema or effusion. No pneumothorax. MEDIASTINUM AND CARDIOVASCULAR STRUCTURES: Cardiac silhouette not enlarged. Central airways and mediastinal contour are unremarkable. BONES AND SOFT TISSUES: No acute abnormality. RAD/Chest 3 View IMPRESSION: Left chest wall pacer with lead overlying the right ventricle. No acute pulmonary finding. No pneumothorax. Electronically Signed: Ruben Palacio MD at 5:32 EDT ,
[2023-12-25] MEDS: Insulin Lispro 100 UNIT/ML INSULN.PEN SC (06:36)
[2023-12-25] MEDS: 0.9% Saline Lock 10 ML Syringe IV (06:39)
[2023-12-25 06:55] LABS: Anion Gap 5 (5-15); BUN 17 mg/dL (7-18); BUN/Creat Ratio 23.7 RATIO (10-20); Calcium,Total 8.9 mg/dL (8.5-10.1); Chloride 105 mmol/L (98-107); Creatinine, Serum 0.72 mg/dL (0.55-1.02); EST Glomerular Filtration Rate 82 mL/min (>60); Est Glom Filt Rate - Afr Amer 99 mL/min (>60); Estimated Creatinine Clearance 48.35 ml/min; Glucose 240 mg/dL (74-106); Potassium 4.5 mmol/L (3.5-5.1); Sodium Level 139 mmol/L (136-145)
[2023-12-25 06:58] LABS: Bedside Glucose 227 mg/dL (74-106)
[2023-12-25] MEDS: Amox/Clavulanate 875 MG Tablet PO (07:38)
--- NOTE | 2023-12-25 08:36 | PN.CARD_ITS ---
Subjective Subjective Patient seen and evaluated. Objective Data Vital Signs: Vital Signs Temp Pulse Resp BP Pulse Ox O2 Del Method O2 Flow Rate 97.3 F L 56 L 18 157/64 H 95 Room Air 1 12/25/23 02:53 12/25/23 02:53 12/25/23 02:53 12/25/23 02:53 12/25/23 02:53 12/25/23 02:53 12/21/23 09:34 Oxygen Flow Rate (L/min) 1 Oxygen Delivery Method Room Air Weight: 161 lb 2.526 oz Body Mass Index (BMI) 28.5 Intake & Output: Intake and Output for Last 24 Hours 12/23/23 12/24/23 12/25/23 23:59 23:59 23:59 Intake Total 200 / 200 108.25 / 108.25 30 Output Total 600 / 600 Balance 199 / 199 108.25 / 108.25 -570 / -570 Lab / Micro Data 12/24/23 10:25 12/25/23 05:29 Labs: Laboratory Results - last 24 hr 12/24/23 10:25: WBC 10.6, RBC 4.18 L, Hgb 12.7, Hct 39.1, MCV 93.5, MCH 30.4, MCHC 32.5, RDW Std Deviation 46.1 H, RDW Coeff of Renita 13.5, Plt Count 264, MPV 8.8, Immature Gran % (Auto) 0.600, Neut % (Auto) 73.8 H, Lymph % (Auto) 14.4 L, [place] % (Auto) 8.6, Eos % (Auto) 2.0, Baso % (Auto) 0.6, Absolute Neuts (auto) 7.8 H, Absolute Lymphs (auto) 1.52, Nucleated RBC % 0 12/24/23 11:31: POC Glucose 234 H 12/24/23 16:55: POC Glucose 212 H 12/24/23 21:06: POC Glucose 211 H 12/25/23 05:29: Sodium 139, Potassium 4.5, Chloride 105, Carbon Dioxide 29.0, Anion Gap 5, BUN 17, Creatinine 0.72, Estim Creat Clear Calc 48.35, Est GFR (MDRD) Af Amer 99, Est GFR (MDRD) Non-Af 82, BUN/Creatinine Ratio 23.7 H, G lucose 240 H, Calcium 8.9 12/25/23 06:34: POC Glucose 227 H Rhythm Strip Rhythm Strip: A-fib Rate: 50 Ectopy: PVC(s) Cardiology Labs/Tests 12/24/23 10:25: WBC 10.6, RBC 4.18 L, Hgb 12.7, Hct 39.1, MCV 93.5, MCH 30.4, MCHC 32.5, Plt Count 264, MPV 8.8, Immature Gran % (Auto) 0.600, Neut % (Auto) 73.8 H, Lymph % (Auto) 14.4 L, [place] % (Auto) 8.6, Eos % (Auto) 2.0, Baso % (Auto) 0.6, Absolute Neuts (auto) 7.8 H, Nucleated RBC % 0 12/25/23 05:29: Sodium 139, Potassium 4.5, Chloride 105, Carbon Dioxide 29.0, Anion Gap 5, BUN 17, Creatinine 0.72, Est GFR (MDRD) Af Amer 99, Est GFR (MDRD) Non-Af 82, BUN/Creatinine Ratio 23.7 H, Glucose 240 H, Calcium 8.9 Rhythm: EKG: ECHO: Stress Test: Cardiac Cath: PCI: CT Surgery: Holter monitor: EPS: PPM: CXR: Chest CT Scan: Radiography Diagnostic Testing: Radiology Impression Chest X-Ray 12/25/23 05:55 IMPRESSION: Left chest wall pacer with lead overlying the right ventricle. No acute pulmonary finding. No pneumothorax. Electronically Signed: Ruben Palacio MD at 5:32 EDT Reading Location ID and State: [address] [place] [address] Tel , Service support , Physical Exam Const alert and oriented x3 HEENT normocephalic Neck no JVD Chest inspection of chest normal Resp normal respiratory effort and clear to auscultation bilaterally Cardio Rate: bradycardia Rhythm: abnormal rhythm irregularly irregular Heart Sounds: S1 normal and S2 normal; Negative for click, gallop or murmur Extremity no pedal edema Neuro Neuro Narrative: Alert and oriented x 3 Psych mental status grossly normal Assessment & Plan Assessment/Plan (1) Paroxysmal atrial fibrillation: PLAN: The patient remains in atrial fibrillation and is status post pacemaker placement. Pacemaker interrogation demonstrates normal functioning. Chest x- ray is also noted to be normal. (2) Torsades de pointes: PLAN: The patient's had no recurrence of her torsades since her heart rate has increased into the 50 to 60 bpm range primarily. She is ventricular paced for now at 50 bpm and will be adjusted in the office. (3) HTN (hypertension): QUALIFIERS: Hypertension type: primary hypertension Qualified Code(s): I10 - Essential (primary) hypertension PLAN: The patient's blood pressure has been adequate controlled on her current meds.
--- NOTE | 2023-12-25 08:39 | DCINST_ITS ---
Discharge Instructions Diet Discharge Diet: No restrictions (as you feel able. No excessive stretching. No lifting your arm over your head (keep elbow below shoulder level) until seen for your pacemaker check. Do not lift your elbow away from your side until you are seen for your first visit. Keep the arm sling on if it helps remind you not to lift your arm.) Activity Discharge Activity: May Not Drive May shower in (days): 2 Additional Activity Instructions:: May shower or bathe on [day 3]. Do not scrub the incision or soak in the tub. Just wash with soap and let the water run over the incision. Gently pat dry with towel. Medications: Take your pain medication as directed. Refer to your discharge instruction sheet for a list of medications you are to take. Dressing / Incision Call your doctor if your incision/area has: Continuous Slow Oozing, Sudden Increased Bleeding, Increased Pain/ Swelling, Increased Redness, Foul Smelling Discharge and Swelling at the incision site Call your doctor if you observe: Fever of 101 or Higher, Shortness of breath, Dizziness, Fainting spells, Swelling in the ankles, Chest pain, Prolonged hiccupping and Increased palpitations (irregular heartbeat) Suture Line Care: Avoid Pulling/Pushing and Avoid Pinching/Bending Additional Dressing/Incision Instructions:: When dressing is removed, wash and dry incision. Keep covered with a light bandage if it is rubbing against your clothing. Do not cover the incision with an airtight bandage. Change the bandage daily. Do not remove steri strips. The strips will fall off on their own. Follow Up Care Please Follow Up With: Antonio Tijerina MD When: Pacer follow-up on December 31 at 11 AM Test Results: Test results from this visit will be discussed in further detail at your follow- up appointment, if applicable. Discharge Plan Admission Admit Date/Time: 12/17/23 12:04 Attending Provider: Ramin Law Primary Care Provider: Juany Rao Consulting Providers: Kody Carrillo; Ankush Lamas; Selina Sharma; Edward Jones Discharge Orders/Prescriptions Prescriptions: No Action amlodipine 10 mg tablet 10 mg PO DAILY Patient Comments: TAKE 1 TABLET BY MOUTH ONCE DAILY atorvastatin 20 mg tablet 20 mg PO DAILY Patient Comments: TAKE 1 TABLET BY MOUTH ONCE DAILY hydrochlorothiazide 12.5 mg capsule 12.5 mg PO DAILY Patient Comments: TAKE 1 CAPSULE BY MOUTH ONCE DAILY hydrochlorothiazide 25 mg tablet 25 mg PO BID Patient Comments: TAKE 1 TABLET BY MOUTH ONCE DAILY lisinopril 40 mg tablet 40 mg PO DAILY Patient Comments: TAKE 1 TABLET BY MOUTH ONCE DAILY metformin 500 mg tablet extended release 24 hr 500 mg PO DAILY Patient Comments: TAKE 2 TABLETS BY MOUTH WITH BREAKFAST AND 1 TABLET WITH DINNER. metoprolol succinate 50 mg tablet extended release 24 hr 50 mg PO DAILY Patient Comments: TAKE 1 TABLET BY MOUTH ONCE DAILY omeprazole 40 mg capsule,delayed release(DR/EC) 40 mg PO DAILY Patient Comments: TAKE 1 CAPSULE BY MOUTH ONCE DAILY spironolactone 50 mg tablet 50 mg PO DAILY Patient Comments: TAKE 1 TABLET BY MOUTH ONCE DAILY Referrals / Follow Up: Juany Rao MD [Primary Care Provider] -
--- NOTE | 2023-12-25 09:07 | CASEMGMT ---
Social Work SW called daughter to inquire about SNF, message left. SW will continue to follow. MICK Garza
--- NOTE | 2023-12-25 09:13 | CASEMGMT ---
Addendum entered by Mariposa Schmidt 12/25/23 10:43: Social Work SW met w/pt and daughter in room in regard to discharge plan. Daughter confirms the plan is for pt to go home with her. They are setting pt up on the first floor. She has a walker, cane, shower chair if needed. Pt normally walks without an assistive device and is active. SW discussed again w/daughter and pt home health care, they are declining the referral at this time. SW educated daughter as well that if she goes home and they decide they would like home health, pt's PCP can also order home health. Both state understanding. Plan continues to be at this time for pt to go home w/pt's daughter. MICK Garza Original Note: Social Work SW called daughter Lavinia, message left in regard to senior living choices. SW spoke w/pt in regard to discharge plan. Pt states the plan is for her to go to her daughter's home, she does not feel she needs senior living placement for rehab at this time. Pt states she is moving fine w/therapy, even with the sling. SW spoke w/pt about home health care. Pt is not certain if she would need this, inquired if she would need to decide today. SW educated pt that if she goes home today, we can make a referral for home health. Should she go home w/o the referral, she can follow up w/Dr. Rao, her PCP, and she can also make a home health referral. Pt states understanding. Pt states her daughter will be here this morning. SW will follow up w/her once she is here to confirm the plan. MICK Garza
[2023-12-25 09:14] VITALS: BP 139/66; PULSE 54; RESP 16; TEMP 36.4; O2SAT 100
[2023-12-25] MEDS: Pantoprazole Sodium 40 MG Tablet PO (09:19)
--- NOTE | 2023-12-25 09:20 | PCM.DC ---
Discharge Instructions Diet Discharge Diet: No restrictions (as you feel able. No excessive stretching. No lifting your arm over your head (keep elbow below shoulder level) until seen for your pacemaker check. Do not lift your elbow away from your side until you are seen for your first visit. Keep the arm sling on if it helps remind you not to lift your arm.) Activity Discharge Activity: Return to Normal Activity May shower in (days): 2 Additional Activity Instructions:: May shower or bathe on [day 3]. Do not scrub the incision or soak in the tub. Just wash with soap and let the water run over the incision. Gently pat dry with towel. Medications: Take your pain medication as directed. Refer to your discharge instruction sheet for a list of medications you are to take. Dressing / Incision Call your doctor if your incision/area has: Continuous Slow Oozing, Sudden Increased Bleeding, Increased Pain/ Swelling, Increased Redness, Foul Smelling Discharge and Swelling at the incision site Call your doctor if you observe: Fever of 101 or Higher, Shortness of breath, Dizziness, Fainting spells, Swelling in the ankles, Chest pain, Prolonged hiccupping and Increased palpitations (irregular heartbeat) Suture Line Care: Avoid Pulling/Pushing and Avoid Pinching/Bending Additional Dressing/Incision Instructions:: When dressing is removed, wash and dry incision. Keep covered with a light bandage if it is rubbing against your clothing. Do not cover the incision with an airtight bandage. Change the bandage daily. Do not remove steri strips. The strips will fall off on their own. Follow Up Care Please Follow Up With: Antonio Tijerina MD Test Results: Test results from this visit will be discussed in further detail at your follow-up appointment, if applicable. Discharge Plan Admission Admit Date/Time: 12/17/23 12:04 Attending Provider: Ramin Law Primary Care Provider: Juany Rao Consulting Providers: Kody Carrillo; Ankush Lamas; Selina Sharma; Edward Jones Instructions Additional Instructions / Restrictions: Follow-up with your PCP to monitor your blood pressure and renal function and to discuss when to reinitiate some of the held blood pressure medications. Discharge Orders/Prescriptions Prescriptions: New amoxicillin-pot clavulanate 875-125 mg Tablet 1 tab PO BIDCM 2 Days Qty: 4 0RF Continued amlodipine 10 mg tablet 10 mg PO DAILY Patient Comments: TAKE 1 TABLET BY MOUTH ONCE DAILY atorvastatin 20 mg tablet 20 mg PO DAILY Patient Comments: TAKE 1 TABLET BY MOUTH ONCE DAILY metformin 500 mg tablet extended release 24 hr 500 mg PO DAILY Patient Comments: TAKE 2 TABLETS BY MOUTH WITH BREAKFAST AND 1 TABLET WITH DINNER. omeprazole 40 mg capsule,delayed release(DR/EC) 40 mg PO DAILY Patient Comments: TAKE 1 CAPSULE BY MOUTH ONCE DAILY Changed lisinopril 40 mg tablet 20 mg PO DAILY 30 Days 0RF Patient Comments: TAKE 1 TABLET BY MOUTH ONCE DAILY spironolactone 50 mg tablet 25 mg PO DAILY 30 Days Qty: 0 0RF Patient Comments: TAKE 1 TABLET BY MOUTH ONCE DAILY Held hydrochlorothiazide 25 mg tablet 25 mg PO BID Hold Instructions: Resume on 12/28/23. Patient Comments: TAKE 1 TABLET BY MOUTH ONCE DAILY metoprolol succinate 50 mg tablet extended release 24 hr 50 mg PO DAILY Hold Instructions: Resume on 01/04/24. Until seen by cardiology or your PCP Patient Comments: TAKE 1 TABLET BY MOUTH ONCE DAILY Discontinued hydrochlorothiazide 12.5 mg capsule 12.5 mg PO DAILY Patient Comments: TAKE 1 CAPSULE BY MOUTH ONCE DAILY Referrals / Follow Up: Antonio Tijerina MD [Med Staff - Active Staff] - Within 2 Weeks Juany Rao MD [Primary Care Provider] - Within 1 Week Disposition Disposition (needs filled in before D/C Order can be placed): Home, Self Care
--- NOTE | 2023-12-25 12:35 | PHA.DC.MC.R ---
Pharmacy [facility] has performed discharge medication reconciliation and counseling for this patient. 1. AUGMENTIN 875MG PO BID X 2 DAYS 2. LISINOPRIL DECREASED TO 20MG AND SPIRONOLACTONE DECREASED TO 25MG 3. HOLD HYDROCHLOROTHIAZIDE UNTIL 12/27 AND METOPROLOL UNTIL 01/03 (UNTIL APPT WITH CARDIO OR PCP) The patient's discharge medication list was reviewed for discrepancies and discrepancies were resolved. The patient was counseled on the following discharge medications and changes in medications for homegoing were reviewed. The Reason for Use, instructions for use, and potential side effects were reviewed for all new medications. The patient's questions regarding all of their medications were answered. The patient was able to verbally demonstrate an understanding of their discharge medications. Medications at Discharge Home Medications amlodipine 10 mg tablet 10 mg PO DAILY blood pressure 12/16/23 atorvastatin 20 mg tablet 20 mg PO DAILY cholesterol 12/16/23 hydrochlorothiazide 25 mg tablet 25 mg PO BID diuretic 12/16/23 metformin 500 mg tablet,extended release 24 hr 500 mg PO DAILY diabetes 12/16/23 metoprolol succinate 50 mg tablet,extended release 24 hr 50 mg PO DAILY blood pressure 12/16/23 omeprazole 40 mg capsule,delayed release 40 mg PO DAILY reflux 12/16/23 amoxicillin 875 mg-potassium clavulanate 125 mg tablet 1 tab PO BIDCM 2 days #4 tabs 12/25/23 lisinopril 40 mg tablet 20 mg (1/2 x 40 mg) PO DAILY 30 days 12/25/23 spironolactone 50 mg tablet 25 mg (1/2 x 50 mg) PO DAILY 30 days #0 tabs 12/25/23
--- NOTE | 2023-12-25 14:27 | DS.PCM_ITS ---
Providers Date of Admission: 12/17/23 Primary Care Physician: Dr. Juany Rao MD Consultations 12/16/23 22:26 Consult: Cardiology Routine Consulting Provider: Selina Sharma Reason for Consult: syncope. aflutter. CHF EMERGENT Consult: No Notified: Yes Date Notified: 12/16/23 Time Notified: 21:56 Method of Notification: ED Physician Initiated 12/19/23 07:29 Consult: Infectious Disease Routine Consulting Provider: Edward Jonse Reason for Consult: mild leukocytosis/elev procal, needs pacer, further w/u needed? EMERGENT Consult: No Notified: Yes Date Notified: 12/19/23 Time Notified: 07:29 Method of Notification: Text Reason For Visit: SYNCOPE Diagnosis Discharge Diagnosis (1) Paroxysmal atrial fibrillation: Status: Acute Code(s): I48.0 - Paroxysmal atrial fibrillation (2) Torsades de pointes: Status: Acute Code(s): I47.21 - Torsades de pointes (3) HTN (hypertension): Status: Chronic Code(s): I10 - Essential (primary) hypertension Qualifiers: Hypertension type: primary hypertension Qualified Code(s): I10 - Essential (primary) hypertension Medications at Discharge Home Medications amlodipine 10 mg tablet 10 mg PO DAILY blood pressure 12/16/23 atorvastatin 20 mg tablet 20 mg PO DAILY cholesterol 12/16/23 hydrochlorothiazide 25 mg tablet 25 mg PO BID diuretic 12/16/23 metformin 500 mg tablet,extended release 24 hr 500 mg PO DAILY diabetes 12/16/23 metoprolol succinate 50 mg tablet,extended release 24 hr 50 mg PO DAILY blood pressure 12/16/23 omeprazole 40 mg capsule,delayed release 40 mg PO DAILY reflux 12/16/23 amoxicillin 875 mg-potassium clavulanate 125 mg tablet 1 tab PO BIDCM 2 days #4 tabs 12/25/23 lisinopril 40 mg tablet 20 mg (1/2 x 40 mg) PO DAILY 30 days 12/25/23 spironolactone 50 mg tablet 25 mg (1/2 x 50 mg) PO DAILY 30 days #0 tabs 12/25/23 Hospital Course Operations None Procedures 2-D Echocardiogram and - (Pacemaker placement) Summary of Care Provided Minutes Spent on Discharge: 34 Hospital Course: Per HPI: AUSTIN FANG, is a 88 F who presents with syncope. Is an 88-year-old female with hypertension who was with her daughter and was not feeling well. Sat down and they checked her blood pressure as he normally do and systolic is in the 190s, checked a few moments later and it was down into the 90s. Daughter left the room and then heard a thud with Dr. Ibarra the room the patient had fallen to the ground. Patient came to immediately. Patient had injured her ankle. With this syncopal event, they brought her to the hospital. Patient's not had syncopal events but she has been having some dizziness as of late. She denies any chest pain, no shortness of breath, she does have some ankle edema which is new. She in the emergency room was found to be in rate controlled a flutter, which is new, she had a chest x-ray that was concerning for hilar mass so she underwent a CT without contrast that showed right pleural effusion. ED reached out to cardiology who advised admission. Hospital Course: 1. Syncopal episode, newly diagnosed slow A-fib/flutter, severe pulmonary hypertension with moderate RV dysfunction and TV regurgitation, torsades de pointes, small right-sided pleural effusion ? Cardiology following. Patient presented after syncopal episode at home with reported low blood pressure. On arrival to the ED, found to be in new slow A- fib/flutter. CTA chest showed no PE, small right pleural effusion, otherwise unremarkable. Echo 12/16 showed normal EF but severe pulmonary hypertension with PASP 88 mmHg, moderate RV dysfunction and 3+ tricuspid valve regurgitation. On 12/16, patient had a short pulseless V. tach arrest. See code documentation for further details. She regained a pulse quickly without need for defibrillation or other medications. On telemetry, appeared that patient went into Torsades. Per cardiology, suspect this is consistent with the syncopal episode she had at home. Suspect that rhythm issues are secondary to right heart changes secondary to pulmonary hypertension. Holding patient's home Toprol and other blood pressure medications. Planning for permanent pacemaker during this hospitalization; however, have concern for possible indolent infection as noted below and this will need to be ruled out prior to pacemaker placement. Patient moved up to ICU on 12/16. Stable on 12/17, and A-fib with rate around 60 and hemodynamically stable. Planning for pacemaker placement once infection has either been treated or ruled out has below. 12/20/2023: Plan for pacemaker placement on Sunday to complete multiple days of oral antibiotics 12/21/2023: Pacemaker on Sunday currently continue with antibiotics 12/22/2023: No new issues 12/23/2023: Awaiting pacemaker placement 12/24/2023: Awaiting pacemaker placement today 12/25/2023: She underwent pacemaker placement yesterday and has done well today. Pacemaker is functioning. Discussed case with cardiology felt that she was stable for discharge today. I discussed with her the plan for discharge and she expressed understanding of the risk benefits of going home and would like to go home today. Recommend that she follow-up with PCP as an outpatient as well as with cardiology for follow-up. Given the length of her stay and her age, she was evaluated PT on the day of discharge and SNF was not recommended. 2. Low-grade fevers with mild leukocytosis ? Infectious disease following. WBC count 14 on admit, has remained stable around 12-14. Patient with low-grade fevers up to 99.7F on day of admit. Unclear if patient has infection. UA unremarkable, CTA chest unremarkable, no abdominal pain or discomfort. Notably, patient reported right lower molar pain recently and on exam, some blackening of the tooth and decay noted though no erythema or eli purulence surrounding the tooth. CT facial/sinus with IV contrast on 12/18 unfortunately was limited due to prior dental work. Blood cultures drawn on 12/16, no growth to date. Procalcitonin 0.26, only slightly above normal range. Per ID recs, started on p.o. Augmentin on 12/18 and will discuss if need for tooth to be pulled. Continue to monitor daily CBC and fever curve. 12/20/2023: Continue with Augmentin for several days prior to doing pacemaker placement. Appreciate IDs assistance 12/25/2023: Will continue with Augmentin for 2 more days to complete 10-day course, recommend outpatient follow-up with dentist to evaluate the tooth. 3. Hypertension ? Holding home amlodipine, hydrochlorothiazide, lisinopril and Toprol given cardiac issues as noted above. 12/25/2023: Continue with amlodipine on discharge, will reduce Aldactone dose by half as well as lisinopril dose by half. Will hold her metoprolol as well as her hydrochlorothiazide and recommend outpatient follow-up with PCP and cardiology for any further adjustments Chronic medical conditions: ? Type 2 diabetes mellitus: A1c 9.3% on admit. Continue treatment with sliding scale insulin with meals while inpatient. 12/25/2023: Will need to follow-up with her PCP for outpatient management of her diabetes and positive make adjustments to her metformin ? GERD: Continue home PPI. ? Hyperlipidemia: Continue home atorvastatin. Physical Exam Narrative General: Alert, Oriented x3, Cooperative, No apparent distress HEENT: Atraumatic, PERRLA, EOMI, Normocephalic Oral: Moist Mucosa Neck: Supple, No JVD Lungs: Diminished, Normal air movement, No rhonchi, No wheeze, No rales Cardiovascular: Regular rate, irregular rhythm, Normal S1, Normal S2, No murmurs Abdomen: Soft, Non Tender, Non-Distended, No Hepato-splenomegaly Extremities: No edema, Capillary Refill Less than 3 Seconds Skin: No rashes, No breakdown Musculoskeletal: No Tenderness to Palpation of Joints or Extremities Neurological: No focal neurological deficits, Motor Exam 5/5 strength throughout, Sensory exam intact to light touch and pain Psych/Mental Status: Normal Affect, Appropriate Weight / BMI Weight Weight: 161 lb 2.526 oz Body Mass Index (BMI) 28.5 ABG / Lab / Microbiology Data 12/24/23 10:25 12/25/23 05:29 Laboratory: Laboratory Results - last 24 hr 12/24/23 11:31: POC Glucose 234 H 12/24/23 16:55: POC Glucose 212 H 12/24/23 21:06: POC Glucose 211 H 12/25/23 05:29: Sodium 139, Potassium 4.5, Chloride 105, Carbon Dioxide 29.0, Anion Gap 5, BUN 17, Creatinine 0.72, Estim Creat Clear Calc 48.35, Est GFR (MDRD) Af Amer 99, Est GFR (MDRD) Non-Af 82, BUN/Creatinine Ratio 23.7 H, G lucose 240 H, Calcium 8.9 12/25/23 06:34: POC Glucose 227 H Microbiology: Microbiology 12/17/23 15:45 Blood Culture (Wb) - Anticubital Right Blood Culture - Final No growth in 5 days. Radiography Diagnostic Testing: Radiology Impression Chest X-Ray 12/25/23 05:55 IMPRESSION: Left chest wall pacer with lead overlying the right ventricle. No acute pulmonary finding. No pneumothorax. Electronically Signed: Ruben Palacio MD at 5:32 EDT , D/C Instructions Discharge Diet: No restrictions (as you feel able. No excessive stretching. No lifting your arm over your head (keep elbow below shoulder level) until seen for your pacemaker check. Do not lift your elbow away from your side until you are seen for your first visit. Keep the arm sling on if it helps remind you not to lift your arm.) May shower in (days): 2 Additional Activity Instructions: May shower or bathe on [day 3]. Do not scrub the incision or soak in the tub. Just wash with soap and let the water run over the incision. Gently pat dry with towel. Medications: Take your pain medication as directed. Refer to your discharge instruction sheet for a list of medications you are to take. Call your doctor if your incision/area has: Continuous Slow Oozing, Sudden Increased Bleeding, Increased Pain/ Swelling, Increased Redness, Foul Smelling Discharge and Swelling at the incision site Call your doctor if you observe: Fever of 101 or Higher, Shortness of breath, Dizziness, Fainting spells, Swelling in the ankles, Chest pain, Prolonged hiccupping and Increased palpitations (irregular heartbeat) Suture Line Care: Avoid Pulling/Pushing and Avoid Pinching/Bending Additional Dressing/Incision Instructions: When dressing is removed, wash and dry incision. Keep covered with a light bandage if it is rubbing against your clothing. Do not cover the incision with an airtight bandage. Change the bandage daily. Do not remove steri strips. The strips will fall off on their own. Please Follow Up With: Antonio Tijerina MD When: Pacer follow-up on December 31 at 11 AM Meaningful Use Info Meaningful Use Meaningful Use Diagnoses (Choose all that apply): None applicable Ischemic Stroke Statin Dosing Therapy Reference: STATIN DOSE THERAPY REFERENCE: * Patients > 75 years receive moderate or high dose statin therapy. * Patients 75 years or YOUNGER should receive HIGH intensity statin dose unless contraindicated. You will be required to document reason for non-treatment if statin daily dose does not meet guidelines. HIGH DOSE STATIN THERAPY DAILY Atorvastatin > than or = to 40 mg Rosuvastatin > than or = to 20 mg Amlodipine + Atorvastatin > than or = to 2.5/40 mg Ezetimibe + Simvastatin 10/80 mg Simvastatin 80mg Discharge Plan Admission Admit Date/Time: 12/17/23 12:04 Attending Provider: Ramin Law Primary Care Provider: Juany Rao Consulting Providers: Kody Carrillo; Ankush Lamas; Selina Sharma; Edward Jones Instructions Additional Instructions / Restrictions: Follow-up with your PCP to monitor your blood pressure and renal function and to discuss when to reinitiate some of the held blood pressure medications. Discharge Orders/Prescriptions Prescriptions: New amoxicillin-pot clavulanate 875-125 mg Tablet 1 tab PO BIDCM 2 Days Qty: 4 0RF Continued amlodipine 10 mg tablet 10 mg PO DAILY Patient Comments: TAKE 1 TABLET BY MOUTH ONCE DAILY atorvastatin 20 mg tablet 20 mg PO DAILY Patient Comments: TAKE 1 TABLET BY MOUTH ONCE DAILY metformin 500 mg tablet extended release 24 hr 500 mg PO DAILY Patient Comments: TAKE 2 TABLETS BY MOUTH WITH BREAKFAST AND 1 TABLET WITH DINNER. omeprazole 40 mg capsule,delayed release(DR/EC) 40 mg PO DAILY Patient Comments: TAKE 1 CAPSULE BY MOUTH ONCE DAILY Changed lisinopril 40 mg tablet 20 mg PO DAILY 30 Days 0RF Patient Comments: TAKE 1 TABLET BY MOUTH ONCE DAILY spironolactone 50 mg tablet 25 mg PO DAILY 30 Days Qty: 0 0RF Patient Comments: TAKE 1 TABLET BY MOUTH ONCE DAILY Held hydrochlorothiazide 25 mg tablet 25 mg PO BID Hold Instructions: Resume on 12/28/23. Patient Comments: TAKE 1 TABLET BY MOUTH ONCE DAILY metoprolol succinate 50 mg tablet extended release 24 hr 50 mg PO DAILY Hold Instructions: Resume on 01/04/24. Until seen by cardiology or your PCP Patient Comments: TAKE 1 TABLET BY MOUTH ONCE DAILY Discontinued hydrochlorothiazide 12.5 mg capsule 12.5 mg PO DAILY Patient Comments: TAKE 1 CAPSULE BY MOUTH ONCE DAILY Referrals / Follow Up: Antonio Tijerina MD [Med Staff - Active Staff] - Within 2 Weeks Juany Rao MD [Primary Care Provider] - Within 1 Week Disposition Disposition (needs filled in before D/C Order can be placed): Home, Self Care Charges/Coding Visit Charges Inpatient E&M: 79081 Disch Hosp >30min
== END 2023-12-25 13:13 | disposition home or self-care (01) | DRG 243 ==
LOC: ED 21:54 → PCU 22:03 → ICU 12-17 18:12 → PCU 12-22 14:48
PROVIDERS: Family Medicine; Hospitalist; Emergency Provider Emergency Medicine; PCP Internal Medicine; Visit Provider Family Medicine
DX: I48.0 Paroxysmal atrial fibrillation (principal); I50.32 Chronic diastolic (congestive) heart failure; I27.20 Pulmonary hypertension, unspecified; I11.0 Hypertensive heart disease with heart failure; I47.21 Torsades de pointes; E11.9 Type 2 diabetes mellitus without complications; E78.5 Hyperlipidemia, unspecified; I48.4 Atypical atrial flutter; K21.9 Gastro-esophageal reflux disease without esophagitis; K04.7 Periapical abscess without sinus; Z95.0 Presence of cardiac pacemaker; Z79.84 Long term (current) use of oral hypoglycemic drugs; Z79.899 Other long term (current) drug therapy
CPT/HCPCS: 33207; 36415; 70450; 70487; 71045; 71047; 71250; 71275; 73590; 73610; 80048; 80053; 82962; 83036; 83735; 83880; 84145; 84484; 85025; 85027; 85379; 85610; 85730; 87040; 92950; 93005; 93306; 94762; 97110; 97162; 97166; 97530; 97535; 97803; 99152; 99153; 99285; J7030; J7040; J7050; Q9967; A4216; C1894; J1940

== ENCOUNTER → 2024-02-05 | Outpatient (CLI) | payer MEDICARE, BC, SELFPAY ==
[2024-02-05 13:43] LABS: Anion Gap 6 (5-15); BUN 41 mg/dL (7-18); BUN/Creat Ratio 35.3 RATIO (10-20); Calcium,Total 10.1 mg/dL (8.5-10.1); Chloride 103 mmol/L (98-107); Creatinine, Serum 1.16 mg/dL (0.55-1.02); EST Glomerular Filtration Rate 47 mL/min (>60); Est Glom Filt Rate - Afr Amer 57 mL/min (>60); Glucose 205 mg/dL (74-106); Potassium 4.3 mmol/L (3.5-5.1); Sodium Level 138 mmol/L (136-145)
== END | disposition home or self-care (01) ==
LOC: LAB 11:49
PROVIDERS: PCP Internal Medicine; Referring Provider Nurse Practitioner Gerontology; Visit Provider Nurse Practitioner Gerontology
DX: I10 Essential (primary) hypertension (principal)
CPT/HCPCS: 36415; 80048

== ENCOUNTER → 2024-06-02 | Outpatient (CLI) | payer MEDICARE, BC, SELFPAY ==
[2024-06-02 12:16] LABS: Absolute Lymphocyte Count 1.88 X10^3/uL (0.83-4.51); Absolute Neutrophil Count 6.5 X10^3/uL (2.0-7.7); Basophil# 0.05 X10^3/uL; Basophil% 0.5 % (0-1); Eosinophils% 4.1 % (0-5); Hematocrit 41.3 % (37-47); Hemoglobin 12.9 g/dL (12.0-15.0); Lymphocyte # 1.88 X10^3/ul (0.83-4.51); Lymphocyte % 19.2 % (19-41); Mean Corp Hgb Conc 31.2 g/dL (32-36); Mean Corpuscular Volume 92.8 fL (81-99); Mean Platelet Vol. 8.8 fl (6.2-12.0); Monocyte% 9.2 % (0-10); NRBC Flagged by Analyzer 0 % (0-5); Neutrophil % 66.6 % (47-70); Platelet Count 234 K/mm3 (150-450); RBC Distribution Width CV 14.7 % (11.6-14.6); RBC Distribution Width SD 49.5 fl (35.1-43.9); Red Blood Count 4.45 M/mm3 (4.2-5.4); White Blood Count 9.8 K/mm3 (4.4-11.0)
--- NOTE | 2024-06-02 12:20 | RAD_ITS ---
STUDY: X-RAY CHEST REASON FOR EXAM: Female, 89 years old. Shortness of breath, history of pleural effusion TECHNIQUE: PA and lateral views of the chest. COMPARISON: Comparison is made with prior study December 25, 2023. FINDINGS: Small bilateral pleural effusions right greater than left with bibasilar atelectasis superimposed on mild degree of CHF. There is mild cardiac enlargement. A left-sided unipolar pacemaker is seen. Normal mediastinum and shakira. Normal visualized pulmonary arteries. There is atherosclerotic calcification of the aortic arch with tortuosity. There are diffuse degenerative changes of the visualized thoracic spine. Normal visualized ribs, clavicles, and shoulders. There is no demonstrated abnormality of the visualized soft tissue structures of the upper abdomen. RAD/Chest PA and Lateral IMPRESSION: Small bilateral pleural effusions right greater than left with bibasilar atelectasis worse on the right side. Superimposed mild CHF. Electronically Signed: Darron Du MD at 12:42 EST ,
[2024-06-02 13:14] LABS: ALB/GLOB Ratio 0.9 RATIO (0.9-2.4); AST(SGOT) 26 U/L (15-37); Alanine Aminotransfer ALT/SGPT 26 U/L (13-56); Albumin, Serum 3.7 g/dL (3.2-5.0); Alkaline Phosphatase 118 U/L (45-117); Anion Gap 7 (5-15); BUN 19 mg/dL (7-18); BUN/Creat Ratio 18.4 RATIO (10-20); Calcium,Total 9.7 mg/dL (8.5-10.1); Chloride 106 mmol/L (98-107); Creatinine, Serum 1.03 mg/dL (0.55-1.02); EST Glomerular Filtration Rate 54 mL/min (>60); Est Glom Filt Rate - Afr Amer 65 mL/min (>60); Globulin 4.3 g/dL (2.2-4.2); Glucose 168 mg/dL (74-106); Potassium 3.8 mmol/L (3.5-5.1); Sodium Level 138 mmol/L (136-145)
[2024-06-02 13:17] LABS: BNP,B-Type NATRIURETIC PEPTIDE 467.1 pg/mL (0-100)
== END | disposition home or self-care (01) ==
LOC: LAB 11:53
PROVIDERS: PCP Internal Medicine; Referring Provider Physician Assistant Medical; Visit Provider Physician Assistant Medical
DX: R06.02 Shortness of breath (principal); Z87.09 Personal history of other diseases of the respiratory system
CPT/HCPCS: 36415; 71046; 80053; 83880; 85025

== ENCOUNTER → 2024-06-09 | Outpatient (CLI) | payer MEDICARE, BC, SELFPAY ==
[2024-06-09 11:44] LABS: Anion Gap 6 (5-15); BNP,B-Type NATRIURETIC PEPTIDE 354.8 pg/mL (0-100); BUN 25 mg/dL (7-18); BUN/Creat Ratio 23.6 RATIO (10-20); Calcium,Total 9.5 mg/dL (8.5-10.1); Chloride 102 mmol/L (98-107); Creatinine, Serum 1.06 mg/dL (0.55-1.02); EST Glomerular Filtration Rate 52 mL/min (>60); Est Glom Filt Rate - Afr Amer 63 mL/min (>60); Glucose 217 mg/dL (74-106); Potassium 4.1 mmol/L (3.5-5.1); Sodium Level 140 mmol/L (136-145)
== END | disposition home or self-care (01) ==
LOC: LAB 10:59
PROVIDERS: PCP Internal Medicine; Referring Provider Internal Medicine Cardiovascular Disease; Visit Provider Internal Medicine Cardiovascular Disease
DX: R06.02 Shortness of breath (principal); R60.0 Localized edema
CPT/HCPCS: 80048; 83880

== ENCOUNTER → 2024-06-23 | Outpatient (CLI) | payer MEDICARE, BC, SELFPAY ==
[2024-06-23 13:46] LABS: Anion Gap 7 (5-15); BUN 33 mg/dL (7-18); Calcium,Total 9.4 mg/dL (8.5-10.1); Chloride 104 mmol/L (98-107); Creatinine, Serum 1.03 mg/dL (0.55-1.02); EST Glomerular Filtration Rate 54 mL/min (>60); Est Glom Filt Rate - Afr Amer 65 mL/min (>60); Glucose 173 mg/dL (74-106); Sodium Level 141 mmol/L (136-145)
== END | disposition home or self-care (01) ==
LOC: LAB 12:21
PROVIDERS: PCP Internal Medicine; Referring Provider Internal Medicine Cardiovascular Disease; Visit Provider Internal Medicine Cardiovascular Disease
DX: I48.91 Unspecified atrial fibrillation (principal); E11.9 Type 2 diabetes mellitus without complications; I10 Essential (primary) hypertension
CPT/HCPCS: 36415; 80048

== ENCOUNTER → 2024-08-08 | Outpatient (CLI) | payer MEDICARE, BC, SELFPAY ==
--- NOTE | 2024-08-08 13:07 | ECHOD_ITS ---
Reason For Study Reason For Study: SOB Procedure This was a 2D Doppler, Color Flow transthoracic echocardiogram. Exam performed in department. Left Ventricle Mild concentric left ventricular hypertrophy. Normal LV size. The left ventricular ejection fraction is 65 %. Stage I diastolic dysfunction with elevated left atrial filling pressures. Right Ventricle Normal right ventricle. ICD or pacer leads identified within the right ventricle. Atria There is mild biatrial dilatation. ICD or pacer leads identified within the right atrium. Mitral Valve Moderately severe mitral valve regurgitation. Tricuspid Valve Severe tricuspid valve regurgitation. Estimated right ventricular systolic pressure 73 mmHg. Aortic Valve Trisinus/trileaflet aortic valve. Pulmonic Valve The pulmonic valve is not well visualized. Trivial pulmonic valve insufficiency. Great Vessels Normal sized aortic root. Pericardium/Pleural No pericardial effusion. MMode/2D Measurements & Calculations LVIDd: 4.2 cm IVSd: 1.2 cm Ao root diam: 3.0 cm LVIDs: 2.5 cm LVPWd: 0.76 cm LA dimension: 4.1 cm RVDd: 3.8 cm FS: 41.1 % LAV(MOD-bp): 58.0 ml LVAd ap4: 24.2 cm2 LVAd ap2: 25.0 cm2 LAV(MOD-bp) Indexed: 37.8 ml/m2 LVLd ap4: 7.3 cm LVLd ap2: 7.5 cm LAV(MOD-sp2): 51.2 ml EDV(MOD-sp4): 68.0 ml EDV(MOD-sp2): 71.2 ml LAV(MOD-sp4): 60.2 ml EDV(sp4-el): 68.4 ml EDV(sp2-el): 70.4 ml LVAs ap4: 13.8 cm2 LVAs ap2: 12.3 cm2 LVLs ap4: 6.5 cm LVLs ap2: 6.3 cm ESV(MOD-sp4): 24.7 ml ESV(MOD-sp2): 20.3 ml ESV(sp4-el): 24.7 ml ESV(sp2-el): 20.2 ml EF(MOD-sp4): 63.6 % EF(MOD-sp2): 71.4 % EF(sp4-el): 63.9 % SV(MOD-sp4): 43.3 ml SV(MOD-sp2): 50.8 ml SV(sp4-el): 43.7 ml SI(MOD-sp4): 28.2 ml/m2 SI(MOD-sp2): 33.1 ml/m2 LA A4 area: 20.3 cm2 LA dimension(2D): 3.9 cm RA A4 area: 18.9 cm2 TAPSE: 1.4 cm Time Measurements MV dec time: 0.16 sec Doppler Measurements & Calculations MV E max tuan: 150.1 cm/sec Lat Peak E' Tuan: 14.2 cm/sec Med Peak E' Tuan: 7.1 cm/sec E/E' lat: 10.6 E/E' med: 21.1 Ao V2 max: 156.1 cm/sec LV V1 max: 111.3 cm/sec MV dec slope: 956.0 cm/sec2 Ao max P.7 mmHg LV V1 max P.0 mmHg Ao V2 mean: 104.3 cm/sec LV V1 mean P.2 mmHg Ao mean P.9 mmHg LV V1 mean: 67.1 cm/sec Ao V2 VTI: 32.8 cm LV V1 VTI: 23.9 cm AV (velocity ratio): 0.73 PA V2 max: 104.4 cm/sec TR max tuan: 379.5 cm/sec TR max P.6 mmHg ECHO/Echo Complete Interpretation Summary Mild concentric left ventricular hypertrophy. The left ventricular ejection fraction is 65 %. Stage I diastolic dysfunction with elevated left atrial filling pressures. There is mild biatrial dilatation. Moderately severe mitral valve regurgitation. Severe tricuspid valve regurgitation. Estimated right ventricular systolic pres sure 73 mmHg. Ordering Physician: Alessandra Smyth Referring Physician: Juany Rao M.D. Performed By: Mónica Patel DK
== END | disposition home or self-care (01) ==
LOC: CVS 13:02
PROVIDERS: PCP Internal Medicine; Referring Provider Internal Medicine Cardiovascular Disease; Visit Provider Internal Medicine Cardiovascular Disease
DX: R06.02 Shortness of breath (principal); I49.5 Sick sinus syndrome; Z87.09 Personal history of other diseases of the respiratory system; J90 Pleural effusion, not elsewhere classified; I07.1 Rheumatic tricuspid insufficiency; R55 Syncope and collapse
CPT/HCPCS: 93306

== ENCOUNTER → 2024-12-17 | Outpatient (CLI) | payer MEDICARE, BC, SELFPAY ==
[2024-12-17 13:10] LABS: Anion Gap 15 (5-15); BUN 36 mg/dL (4-19); BUN/Creat Ratio 25.9 RATIO (10-20); Calcium,Total 9.7 mg/dL (7.6-11.0); Carbon Dioxide 24.7 mmol/L (21.0-32.0); Chloride 103 mmol/L (98-108); Glucose 191 mg/dL (70-99); Potassium 4.4 mmol/L (3.3-5.1)
== END | disposition home or self-care (01) ==
LOC: LAB 11:32
PROVIDERS: PCP Internal Medicine; Referring Provider Student in an Organized Health Care Education/Training Program; Visit Provider Student in an Organized Health Care Education/Training Program
DX: I27.20 Pulmonary hypertension, unspecified (principal)
CPT/HCPCS: 36415; 80048

== ENCOUNTER → 2025-01-01 | Outpatient (CLI) | payer MEDICARE, BC, SELFPAY ==
[2025-01-01 18:28] LABS: Anion Gap 16 (5-15); BUN 38 mg/dL (4-19); BUN/Creat Ratio 24.8 RATIO (10-20); Calcium,Total 9.5 mg/dL (7.6-11.0); Carbon Dioxide 22.0 mmol/L (21.0-32.0); Chloride 102 mmol/L (98-108); Glucose 190 mg/dL (70-99); Potassium 4.1 mmol/L (3.3-5.1)
== END | disposition home or self-care (01) ==
LOC: LAB 16:21
PROVIDERS: PCP Internal Medicine; Referring Provider Student in an Organized Health Care Education/Training Program; Visit Provider Student in an Organized Health Care Education/Training Program
DX: I10 Essential (primary) hypertension (principal)
CPT/HCPCS: 36415; 80048

== ENCOUNTER → 2025-02-24 | Outpatient (CLI) | payer MEDICARE, BC, SELFPAY ==
[2025-02-24 17:46] LABS: Anion Gap 13 (5-15); BUN 36 mg/dL (4-19); BUN/Creat Ratio 25.6 RATIO (10-20); Calcium,Total 9.8 mg/dL (7.6-11.0); Carbon Dioxide 22.8 mmol/L (21.0-32.0); Chloride 105 mmol/L (98-108); Glucose 340 mg/dL (70-99); Potassium 4.4 mmol/L (3.3-5.1)
== END | disposition home or self-care (01) ==
LOC: LAB 15:37
PROVIDERS: PCP Internal Medicine; Referring Provider Student in an Organized Health Care Education/Training Program; Visit Provider Student in an Organized Health Care Education/Training Program
DX: I27.20 Pulmonary hypertension, unspecified (principal)
CPT/HCPCS: 36415; 80048

== ENCOUNTER → 2025-04-22 | Outpatient (CLI) | payer MEDICARE, BC, SELFPAY ==
--- NOTE | 2025-04-22 11:58 | US_ITS ---
PROCEDURE: KIDNEY AND BLADDER 04/22/2025 REASON FOR EXAM: CKD3 TECHNIQUE: Procedure Code: USKI Modality: US Procedure: KIDNEY AND BLADDER FINDINGS: Right kidney measures 9.2 cm and left kidney measures 10.1 cm. Normal echotexture of bilateral kidneys. No hydronephrosis. No renal stones. Urinary bladder is unremarkable. US/Kidney and Bladder IMPRESSION: No hydronephrosis. Reading Location: [id number]
== END | disposition home or self-care (01) ==
LOC: US 11:55
PROVIDERS: PCP Internal Medicine; Referring Provider Internal Medicine Nephrology; Visit Provider Internal Medicine Nephrology
DX: N18.32 Chronic kidney disease, stage 3b (principal)
CPT/HCPCS: 76770